=== PATIENT | female | born 1975 | race Caucasian/White ===

== ENCOUNTER → 2022-03-05 10:41 | Outpatient (BNVA) | payer OTHER, SELFPAY | PROVIDERS: PCP Internal Medicine; Visit Provider Nurse Practitioner Family | DX: M54.12 Radiculopathy, cervical region (principal); M96.1 Postlaminectomy syndrome, not elsewhere classified; M54.81 Occipital neuralgia; M62.838 Other muscle spasm; G43.909 Migraine, unspecified, not intractable, without status migrainosus; Z79.899 Other long term (current) drug therapy | CPT/HCPCS: 99202 ==

== ENCOUNTER → 2022-04-02 11:20 | Outpatient (BNVA) | payer OTHER, SELFPAY | PROVIDERS: PCP Internal Medicine; Visit Provider Nurse Practitioner Family | DX: M96.1 Postlaminectomy syndrome, not elsewhere classified (principal); M54.81 Occipital neuralgia; M62.838 Other muscle spasm; G43.909 Migraine, unspecified, not intractable, without status migrainosus; M54.12 Radiculopathy, cervical region | CPT/HCPCS: 99212 ==

== ENCOUNTER 2022-04-05 12:42 | Emergency (ER) | payer OTHER, SELFPAY ==
[2022-04-05 12:47] VITALS: BP 125/85; PULSE 91; RESP 18; O2SAT 98; BMI 33.0
[2022-04-05 13:17] LABS: COVID-19 Test Negative (Negative); IDNOW Serial# 55D5AD1C
[2022-04-05 15:40] VITALS: BP 123/72; PULSE 88; RESP 18; TEMP 36.7; O2SAT 97
[2022-04-05 15:44] LABS: MANUAL DIFF FLAG NO
[2022-04-05 15:45] LABS: Basophils Percent Auto 0.2 % (0-2); Eosinophils Absolute Auto 0.2 X10*3/uL (0.0-0.4); Eosinophils Percent Auto 1.9 % (0-4); Hemoglobin 14.6 g/dl (12.0-16.0); Imm Gran Abs Auto 0.04 X10*3/uL (0.00-0.03); Imm Gran Pct Auto 0.3 % (0.0-0.4); Lymphocytes Absolute Auto 2.1 X10*3/uL (1.2-4.9); Lymphocytes Percent Auto 18.3 % (20-40); Mean Corpuscular Hemoglobin 32.1 pg (27.0-33.0); Mean Corpuscular Volume 94.5 fL (80.0-98.0); Mean Platelet Volume 10.5 fL (9.4-12.3); Monocytes Percent Auto 8.6 % (2-11); Neutrophils Absolute Auto 8.1 x10*3/uL (2.0-8.3); Neutrophils Percent Auto 70.7 % (45-73); Platelet Count 255 X10*3/uL (160-400); Red Blood Count 4.55 X10*6/uL (4.20-5.50); Red Cell Distribution Width 14.2 % (11.0-16.0); White Blood Count 11.5 X10*3/uL (4.8-10.8)
[2022-04-05 16:04] LABS: Alanine Aminotransferase 22 U/L (0-31); Albumin Level 4.1 g/dL (3.5-5.0); Alkaline Phosphatase 95 U/L (39-117); Anion Gap 16 (12-20); Aspartate Amino Transferase 16 U/L (5-31); Bilirubin Direct 0.2 mg/dL (0.0-0.5); Bilirubin Total 0.4 mg/dL (0.0-1.0); Blood Urea Nitrogen 10 mg/dL (9-16); Calcium 9.3 mg/dL (8.4-10.2); Carbon Dioxide 20 mmol/L (22-29); Chloride 108 mmol/L (96-108); Creatinine Clr Calc Pharmacy 84.5; Estimated Glomerular Filt Rate > 60; Glucose Random 88 mg/dL (60-115); Lipase 13 U/L (8-78); Potassium 4.1 mmol/L (3.3-5.1); Sodium 140 mmol/L (135-145); Total Protein 7.3 g/dL (6.5-8.0)
== END 2022-04-05 19:48 | disposition left against medical advice (07) ==
PROVIDERS: Emergency Provider Emergency Medicine
DX: R11.2 Nausea with vomiting, unspecified (principal); R19.7 Diarrhea, unspecified; R51.9 Headache, unspecified; Z20.822 Contact with and (suspected) exposure to COVID-19
CPT/HCPCS: 36415; 80048; 80076; 83690; 85025; 87635; 99282; 99283

== ENCOUNTER → 2022-05-14 11:25 | Outpatient (BNVA) | payer OTHER, SELFPAY | PROVIDERS: Visit Provider Anesthesiology | DX: M96.1 Postlaminectomy syndrome, not elsewhere classified (principal); M54.81 Occipital neuralgia; M62.838 Other muscle spasm; G43.909 Migraine, unspecified, not intractable, without status migrainosus; M54.12 Radiculopathy, cervical region | CPT/HCPCS: 99212 ==

== ENCOUNTER 2022-10-30 13:07 | Emergency (ER) | payer MEDICAID, SELFPAY ==
--- NOTE | ~2022-10-30 | XR_ITS ---
EXAMINATION: XR KNEE, LEFT CLINICAL INFORMATION: Dislocated knee, popped back in . COMPARISON: 03/25/2018 TECHNIQUE: Four views of the left knee. FINDINGS: No fracture or dislocation. Appropriate alignment of all compartments. Small joint effusion. The soft tissues are unremarkable. XR/XR knee LT 4V IMPRESSION: No fracture or malalignment. Small joint effusion.
[2022-10-30 13:15] VITALS: PULSE 112; RESP 19; TEMP 36.6; O2SAT 97; BMI 33.0
--- NOTE | 2022-10-30 13:15 | ED.LOWEXIN ---
HPI - Extremity Injury (Lower) General Chief Complaint: Extremity Injury, Lower <ELI Willis - Last Filed: 10/30/22 13:19> Stated Complaint: L knee inj <ELI Willis - Last Filed: 10/30/22 13:19> Time Seen by Provider: 10/30/22 13:52 <ELI Willis - Last Filed: 10/30/22 13:19> Source: patient and RN notes reviewed <ELI Vaca - Last Filed: 10/30/22 17:33> Mode of arrival: ambulatory <ELI Vaca - Last Filed: 10/30/22 17:33> Limitations: no limitations <ELI Vaca - Last Filed: 10/30/22 17:33> History of Present Illness HPI Narrative: This is a 47-year-old female with a past medical history of bipolar disorder and IVDA, who presents emergency department today with complaints of left knee pain since yesterday. Patient reports that she was squatting when her left knee became dislocated . She states that when this occurred and she put her knee back into place. She states been able to ambulate but reports that her left knee keeps giving way. She reports that she has a history of right knee injury which had required multiple knee surgeries. Denies any numbness or tingling. No other complaints or concerns at this time. <ELI Vaca - Last Filed: 10/30/22 17:33> MD complaint: knee injury <ELI Vaca - Last Filed: 10/30/22 17:33> Onset (ago): day(s) <ELI Vaca - Last Filed: 10/30/22 17:33> Place: home <ELI Vaca - Last Filed: 10/30/22 17:33> Severity: moderate <ELI Vaca - Last Filed: 10/30/22 17:33> Relieving factors: immobilization and rest <ELI Vaca Last Filed: 10/30/22 17:33> Exacerbating factors: weight bearing, movement and palpation <ELI Vaca - Last Filed: 10/30/22 17:33> Associated symptoms: snap/pop sensation, swelling and able to partially bear weight <ELI Vaca - Last Filed: 10/30/22 17:33> Other symptoms: none <ELI Vaca - Last Filed: 10/30/22 17:33> Related Data Home Medications: Home Medications Medication Instructions Recorded Confirmed alprazolam 0.5 mg tablet 0.5 mg PO BID 03/05/22 04/02/22 gabapentin 600 mg tablet 600 mg PO TID 03/05/22 04/02/22 guanfacine 1 mg tablet 1 mg PO QAM 03/05/22 04/02/22 lidocaine 5 % topical patch 1 patch topical Q12H PRN moderate 03/05/22 04/02/22 pain methylphenidate HCl 10 mg tablet 10 mg PO BID 03/05/22 04/02/22 ondansetron 4 mg disintegrating 4 mg PO Q8H PRN 03/05/22 04/02/22 tablet propranolol 20 mg tablet 20 mg PO BID 03/05/22 04/02/22 dicyclomine 20 mg tablet 20 mg PO QID PRN cramps 06/06/22 gabapentin 300 mg capsule 300 mg PO TID 06/06/22 linaclotide 290 mcg capsule 290 mcg PO DAILY 06/06/22 (Linzess) melatonin 10 mg capsule 10 mg PO BEDTIME 06/06/22 omeprazole 40 mg capsule,delayed 40 mg PO DAILY 06/06/22 release quetiapine 300 mg tablet,extended 600 mg PO QPM 06/06/22 release 24 hr albuterol 90 mcg/actuation aerosol mcg inhalation Q4H PRN 06/09/22 inhaler Previous Rx's Medication Instructions Recorded methocarbamol 750 mg tablet 750 mg PO TID PRN pain (scale 03/05/22 score 7-10) #90 tabs cyclobenzaprine 10 mg tablet 10 mg PO TID PRN muscle spasm #14 10/30/22 tabs oxycodone 5 mg capsule 5 mg PO Q8H PRN severe pain (scale 10/30/22 score 7-10) #8 caps <ELI Willis - Last Filed: 10/30/22 13:19> Allergies/Adverse Reactions: Allergies Allergy/AdvReac Type Severity Reaction Status Date / Time bee pollen [BEE STINGS] Allergy Severe SWELLING Verified 05/14/22 11:57 amoxicillin [Amoxicillin] Allergy Mild HIVES Verified 05/14/22 11:57 erythromycin base Allergy Mild HIVES Verified 05/14/22 11:57 [From E.E.S. 200] ketorolac [From Toradol] Allergy Mild HIVES Verified 05/14/22 11:57 Penicillins Allergy Mild HIVES Verified 05/14/22 11:57 ibuprofen [IBUPROFEN] Allergy Unknown STOMACH Verified 05/14/22 11:57 UPSET-N/V acetaminophen [ACETAMINOPHEN] AdvReac Unknown STOMACH Verified 05/14/22 11:57 UPSET-N/V <ELI Willis - Last Filed: 10/30/22 13:19> Review of Systems Review of Systems: Yes all other systems are reviewed and are negative <ELI Vaca - Last Filed: 10/30/22 17:33> [facility] Past Medical History Surgical History: Surgical History (Updated 06/09/22 @ 08:04 by Jammie Harding CMA) H/O total hysterectomy History of arthroscopic knee surgery History of lumpectomy of left breast History of tubal ligation Hx of neck surgery <ELI Willis - Last Filed: 10/30/22 13:19> Family History Family History: Family History (Updated 06/09/22 @ 07:50 by Jammie Harding CMA) Mother Breast CA Thyroid cancer Ovarian cancer Uterine cancer CHF (congestive heart failure) Paternal Grandmother Lung cancer Paternal Uncle Colon cancer <ELI Willis - Last Filed: 10/30/22 13:19> Social History Social History: Social History (Updated 06/09/22 @ 07:53 by Jammie Harding CMA) Alcohol intake: current Alcohol intake frequency: a few times a month Patient Tobacco Use Status: Current everyday Tobacco user Substance Use Type: Marijuana Advance Directives: Yes Advance Directives Information Provided: Yes Advance Directives on File: No <ELI Willis - Last Filed: 10/30/22 13:19> Physical Exam Vital Signs: Vital Signs: Last Vital Signs Temp 98 F 10/30/22 13:15 Pulse 112 H 10/30/22 13:15 Resp 19 10/30/22 13:15 Pulse Ox 97 10/30/22 13:15 O2 Del Method 10/30/22 13:15 BMI result Body Mass Index 33.0 <ELI Willis - Last Filed: 10/30/22 13:19> Vital Signs: Last Vital Signs Temp 98 F 10/30/22 13:15 Pulse 112 H 10/30/22 13:15 Resp 19 10/30/22 13:15 Pulse Ox 97 10/30/22 13:15 O2 Del Method 10/30/22 13:15 BMI result Body Mass Index 33.0 <ELI Vaca - Last Filed: 10/30/22 17:33> Appearance: Alert. Oriented X3. No acute distress. HEENT: normal inspection CVS: Normal heart rate and rhythm. Pulses normal. Respiratory: No respiratory distress. Skin: Skin warm and dry. Normal skin color. Normal skin turgor. No rashes. Extremities: Left knee with moderate edema noted overlying the medial and lateral aspect without any ecchymosis. Diffuse tenderness to palpation overlying the entire left knee. Pain with active and passive flexion and extension, unable to full assess range of motion secondary to pain. Distal sensation and circulation intact. Neuro: Oriented X 3. No motor deficit. No sensory deficit. <ELI Vaca - Last Filed: 10/30/22 17:33> Course Course Course Narrative: RME--47yo F w/PMHx migraines c/o L knee pain, locking and popping out 2 days ago after squatting down. States pushed back into places. denies direct injury/trauma or fall L knee with mild swelling and diffuse ttp on exam Ambulating with limping gait XRs ordered <ELI Willis - Last Filed: 10/30/22 13:19> Medications Administered Discontinued Medications Generic Name Dose Route Start Last Admin Trade Name Freq PRN Reason Stop Dose Admin Oxycodone HCl 5 mg 10/30/22 15:14 10/30/22 15:21 Oxycodone Hcl Immed Release 5 Mg Tablet PO 10/30/22 15:15 5 mg ONCE ONE Administration <ELI Willis Last Filed: 10/30/22 13:19> Medications Administered Discontinued Medications Generic Name Dose Route Start Last Admin Trade Name Freq PRN Reason Stop Dose Admin Oxycodone HCl 5 mg 10/30/22 15:14 10/30/22 15:21 Oxycodone Hcl Immed Release 5 Mg Tablet PO 10/30/22 15:15 5 mg ONCE ONE Administration <ELI Vaca - Last Filed: 10/30/22 17:33> Medical Decision Making Medical Decision Making MDM Narrative: 47-year-old female, with a past medical history bipolar disorder and IVDA who presents to the emergency department for left knee pain x 1 day. Reporting that her left knee dislocated. Xray of left knee obtained today which revealed no fracture malalignment, small joint effusion. Placed left knee in knee immobilizer. Medicated in department with oxycodone 5mg PO today. Will discharge patient on a short course of pain medication and follow up with orthopedics. <ELI Vaca - Last Filed: 10/30/22 17:33> Differential Diagnosis Differential Diagnoses: The differential diagnosis associated with the presentation includes <ELI Vaca - Last Filed: 10/30/22 17:33> Left knee strain, sprain, contusion, femur fracture, patellar dislocation, ligamentous injury <ELI Vaca - Last Filed: 10/30/22 17:33> Independent Interpretation I performed an independent interpretation of an: Plain X-Ray <ELI Vaca - Last Filed: 10/30/22 17:33> Interpretation: No fracture noted. <ELI Vaca - Last Filed: 10/30/22 17:33> Radiology Impression Discussion of test interpretation with radiology: I have reviewed the radiologist's reading. <ELI Vaca - Last Filed: 10/30/22 17:33> Radiologist Impression: XR/XR knee LT 4V IMPRESSION: No fracture or malalignment. Small joint effusion. <ELI Vaca - Last Filed: 10/30/22 17:33> External Record Review External record reviewed: Prior outpatient labs <ELI Vaca - Last Filed: 10/30/22 17:33> Prescription Management I considered prescription management with: Pain Medication <ELI Vaca - Last Filed: 10/30/22 17:33> Critical Care Time Critical Care Time Critical Care Time: No <ELI Vaca - Last Filed: 10/30/22 17:33> Discharge Plan Discharge Clinical Impression: Left knee sprain, Effusion of knee joint, left <ELI Willis - Last Filed: 10/30/22 13:19> Patient Disposition: Home, Self-Care <ELI Willis - Last Filed: 10/30/22 13:19> Instructions: Knee Sprain (ED), Knee Immobilizer (ED) <ELI Willis - Last Filed: 10/30/22 13:19> Additional Instructions: Your x-rays showed no broken bones, but did reveal a small joint effusion. Take prescribed pain medication as directed as needed for pain. Rest, Ice, and elevate your left leg to reduce swelling. Keep left knee in knee immobilizer for support. Follow up with the referred orthopedics. If you develop new or worsening symptoms call 911 or come back to the ER for further evaluation. [facility] [id number], [place] [address] <ELI Willis - Last Filed: 10/30/22 13:19> Prescriptions: New oxycodone 5 mg capsule 5 mg PO Q8H PRN (Reason: severe pain (scale score 7-10)) Qty: 8 0RF Rx Instructions: Partial Fill upon patient request. cyclobenzaprine 10 mg tablet 10 mg PO TID PRN (Reason: muscle spasm) Qty: 14 0RF No Action ondansetron 4 mg tablet,disintegrating 4 mg PO Q8H PRN alprazolam 0.5 mg tablet 0.5 mg PO BID guanfacine 1 mg tablet 1 mg PO QAM methylphenidate HCl 10 mg tablet 10 mg PO BID propranolol 20 mg tablet 20 mg PO BID gabapentin 600 mg tablet 600 mg PO TID lidocaine 5 % adhesive patch,medicated 1 patch topical Q12H PRN (Reason: moderate pain) methocarbamol 750 mg tablet 750 mg PO TID PRN (Reason: pain (scale score 7-10)) Qty: 90 0RF melatonin 10 mg capsule 10 mg PO BEDTIME dicyclomine 20 mg tablet 20 mg PO QID PRN (Reason: cramps) omeprazole 40 mg capsule,delayed release(DR/EC) 40 mg PO DAILY Linzess 290 mcg capsule 290 mcg PO DAILY quetiapine 300 mg tablet extended release 24 hr 600 mg PO QPM gabapentin 300 mg capsule 300 mg PO TID albuterol 90 mcg/actuation aerosol inhalation Q4H PRN <ELI Willis - Last Filed: 10/30/22 13:19> Interventions: ED Discharge Assessment Last Done: 10/30/22 16:05 <ELI Willis - Last Filed: 10/30/22 13:19> Discharge Date/Time: 10/30/22 16:08 <ELI Willis - Last Filed: 10/30/22 13:19>
--- NOTE | 2022-10-30 14:00 | PC.NURSE ---
Patient reporting left knee pain x-rays obtained. Patient has + CSM in lower ext has not taken any OTC pain meds. Patient crying in triage awaiting x-ray reads.
[2022-10-30] MEDS: oxyCODONE HCl Immed Release 5 MG TABLET PO (15:21)
--- NOTE | 2022-10-30 15:24 | PC.NURSE ---
pt medicated per OCT for 05/26 left knee pain- knee immobilizer applied and crutch training provided
== END 2022-10-30 16:08 | disposition home or self-care (01) ==
PROVIDERS: Emergency Provider Emergency Medicine; PCP Registered Nurse
DX: S83.92XA Sprain of unspecified site of left knee, initial encounter (principal); X58.XXXA Exposure to other specified factors, initial encounter; M25.462 Effusion, left knee; R60.0 Localized edema; Y93.9 Activity, unspecified; Y92.9 Unspecified place or not applicable; Y99.9 Unspecified external cause status
CPT/HCPCS: 73564; 99283

== ENCOUNTER → 2022-12-03 09:13 | Outpatient (BNVA) | payer MEDICAID, SELFPAY | PROVIDERS: PCP Registered Nurse; Visit Provider Anesthesiology | DX: M96.1 Postlaminectomy syndrome, not elsewhere classified (principal); M54.81 Occipital neuralgia; M62.838 Other muscle spasm; M54.12 Radiculopathy, cervical region; G43.909 Migraine, unspecified, not intractable, without status migrainosus | CPT/HCPCS: 99212 ==

== ENCOUNTER 2022-12-04 06:40 | Emergency (ER) | payer MEDICAID, SELFPAY ==
--- NOTE | ~2022-12-04 | XR_ITS ---
EXAMINATION: XR CERVICAL SPINE CLINICAL INFORMATION: Acute on chronic neck pain COMPARISON: 06/26/2011 TECHNIQUE: 3 views of the cervical spine were obtained. FINDINGS: Anterior fusion hardware at C4-C5 with apparent bony fusion of the vertebral bodies at this level. There is a disc spacer at C5-C6. Additional anterior fusion hardware at C7-T1. Posterior hardware from C5 through T2. Appropriate alignment of the vertebral bodies. Intact hardware. There is mild prevertebral soft tissue prominence, though this could be positional. The atlantoaxial joint is well aligned. The dens is intact. XR/XR cervical spine 3V IMPRESSION: Extensive fusion hardware with appropriate alignment. Mild prevertebral soft tissue prominence is noted, though this could be positional.
[2022-12-04 06:46] VITALS: BP 151/104; PULSE 97; RESP 16; TEMP 36.4; O2SAT 98; BMI 32.3
[2022-12-04 06:50] VITALS: BP 151/104; PULSE 93; RESP 16; TEMP 36.4; O2SAT 98
--- NOTE | 2022-12-04 07:07 | ED_ITS ---
HPI - General Adult General Chief complaint: Back Pain/Injury Stated complaint: rods in back causing pain and migraine Time Seen by Provider: 12/04/22 06:58 Source: patient Mode of arrival: ambulatory Limitations: no limitations History of Present Illness HPI narrative: Presents with neck pain and migraine headache. Patient has a history of post- laminectomy syndrome. She has had 7 previous anterior-posterior surgeries on her neck. She is under pain management. She has chronic pain syndrome, chronic cervicalgia, cervical radiculopathy, occipital headaches. Patient is currently under consideration for a drug delivery system pain pump. She has been given approval by [facility]. She does have a history of intravenous drug abuse, bipolar disorder. Currently, pain is a 10/10. Her pain is in the similar location, similar type of pain which is sharp in achy in nature. The pain does radiate down her lower back. This has happened in the past. There is no new numbness, tingling or weakness. She reportedly contact her to paint stockman and she was sent to the emergency department for management. Patient is also complaining of a headache. Is an occipital headache. This is known due to her cervicalgia in her post-laminectomy syndrome. The headache is moderate. She describes as a migraine. There is no photo or phonophobia. There is nausea associated with it. No new focal neurologic deficits. Related Data Home Medications Medication Instructions Recorded Confirmed alprazolam 0.5 mg tablet 0.5 mg PO BID 03/05/22 12/03/22 guanfacine 1 mg tablet 1 mg PO QAM 03/05/22 12/03/22 lidocaine 5 % topical patch 1 patch topical Q12H PRN moderate 03/05/22 12/03/22 pain ondansetron 4 mg disintegrating 4 mg PO Q8H PRN 03/05/22 12/03/22 tablet propranolol 20 mg tablet 20 mg PO BID 03/05/22 12/03/22 dicyclomine 20 mg tablet 20 mg PO QID PRN cramps 06/06/22 12/03/22 gabapentin 300 mg capsule 300 mg PO TID 06/06/22 12/03/22 linaclotide 290 mcg capsule 290 mcg PO DAILY 06/06/22 12/03/22 (Linzess) omeprazole 40 mg capsule,delayed 40 mg PO DAILY 06/06/22 12/03/22 release albuterol 90 mcg/actuation aerosol mcg inhalation Q4H PRN 06/09/22 12/03/22 inhaler methylphenidate HCl 10 mg tablet 20 mg PO BID 12/03/22 12/03/22 quetiapine 300 mg tablet,extended 400 mg PO QPM 12/03/22 12/03/22 release 24 hr Previous Rx's Medication Instructions Recorded methocarbamol 750 mg tablet 750 mg PO TID PRN pain (scale 03/05/22 score 7-10) #90 tabs Allergies Allergy/AdvReac Type Severity Reaction Status Date / Time bee pollen [BEE STINGS] Allergy Severe SWELLING Verified 12/03/22 09:22 amoxicillin [Amoxicillin] Allergy Mild HIVES Verified 12/03/22 09:22 erythromycin base Allergy Mild HIVES Verified 12/03/22 09:22 [From E.E.S. 200] ketorolac [From Toradol] Allergy Mild HIVES Verified 12/03/22 09:22 Penicillins Allergy Mild HIVES Verified 12/03/22 09:22 ibuprofen [IBUPROFEN] Allergy Unknown STOMACH Verified 12/03/22 09:22 UPSET-N/V acetaminophen [ACETAMINOPHEN] AdvReac Unknown STOMACH Verified 12/03/22 09:22 UPSET-N/V PMFSH Past Medical History Surgical History H/O total hysterectomy History of arthroscopic knee surgery History of lumpectomy of left breast History of tubal ligation Hx of neck surgery Family History Family History Mother Breast CA Thyroid cancer Ovarian cancer Uterine cancer CHF (congestive heart failure) Paternal Grandmother Lung cancer Paternal Uncle Colon cancer Social History Social History Alcohol intake: current Alcohol intake frequency: holidays/special occasions only Patient Tobacco Use Status: Current everyday Tobacco user Smoked in Last 30 Days: Yes Use of substances other than those prescribed or required for medical reasons: Yes Substance Use Type: Marijuana Substance Use Frequency: Occasionally Advance Directives: Yes Advance Directives Information Provided: No Advance Directives on File: No Patient : No Physical Exam ED Vital Signs: Vital Signs - 24 hr 12/04/22 06:46 12/04/22 06:50 12/04/22 08:08 Temperature 97.5 F 97.5 F Pulse Rate 97 93 80 Respiratory Rate 16 16 16 Blood Pressure 151/104 H 151/104 H 103/69 Pulse Oximetry 98 98 93 Oxygen Delivery Method Room Air Room Air Room Air 12/04/22 10:25 12/04/22 11:55 Temperature Pulse Rate 78 82 Respiratory Rate 16 16 Blood Pressure 94/53 L 111/71 Pulse Oximetry 94 93 Oxygen Delivery Method Room Air Room Air BMI result Body Mass Index 32.3 GEN: Well developed, no acute distress, alert, oriented HEENT: Normocephalic, atraumatic, normal external ears, nose appears normal, no oropharyngeal edema or exudates Eyes: Normal to appearance Neck: Range of motion somewhat limited secondary to pain, no lymphadenopathy Respiratory: Talks in complete sentences, no respiratory distress, clear to auscultation bilaterally Cardiovascular: Regular rate and rhythm, no murmurs rubs or gallops Abdomen: Soft, nontender, nondistended, no guarding, no rebound Back: No CVA tenderness Extremities: No clubbing cyanosis or edema Neurologic: No focal neurologic deficits, cranial nerves 2-12 intact, strength is 5/5 bilaterally Skin: No rash Course Course Course Narrative: 47-year-old female with history of post-laminectomy syndrome from 7 previous cervical spine surgeries presents with acute on chronic pain. There is no new falls, injuries. She denies any new neurologic symptoms. This is similar pain syndrome to which she has had in the past but more severe. At this point there is no definite indication for emergent imaging. She has no fever chills. No active IV drug abuse. I doubt epidural abscess in any for an MRI. Will treat patient for pain both for her migraine and her C-spine. Patient will be discharged following adequate pain control. Reevaluation(s) Reevaluation #1: pain increasing again. Will give additional meds Time: 09:11 Reevaluation #2: Given oral dilaudid, discussed results, recommended follow up with PMD regarding chronic pain med Rx Time: 12:00 Medications Administered Discontinued Medications Generic Name Dose Route Start Last Admin Trade Name Freq PRN Reason Stop Dose Admin Famotidine 20 mg 12/04/22 07:11 12/04/22 07:31 Famotidine/Pf 20 Mg/2 Ml Vial IVPUSH 12/04/22 07:12 20 mg ONCE ONE Administration Gabapentin 300 mg 12/04/22 09:11 12/04/22 09:22 Gabapentin 300 Mg Capsule PO 12/04/22 09:12 300 mg ONCE ONE Administration Hydromorphone HCl 1 mg 12/04/22 07:11 12/04/22 07:30 Hydromorphone Hcl 1 Mg/Ml Syringe IVPUSH 12/04/22 07:12 1 mg ONCE ONE Administration Protocol Hydromorphone HCl 1 mg 12/04/22 09:11 12/04/22 09:22 Hydromorphone Hcl 1 Mg/Ml Syringe IVPUSH 12/04/22 09:12 1 mg ONCE ONE Administration Protocol Hydromorphone HCl 2 mg 12/04/22 11:38 12/04/22 11:50 Hydromorphone Hcl 2 Mg Tablet PO 12/04/22 11:39 2 mg ONCE ONE Administration Sodium Chloride 1,000 mls @ 999 mls/hr 12/04/22 07:15 12/04/22 10:50 Ns IV 12/04/22 08:15 Infused .Q1H1M DESTINEY Infusion Metoclopramide HCl 10 mg 12/04/22 07:11 12/04/22 07:30 Metoclopramide Hcl 10 Mg/2 Ml Vial IVPUSH 12/04/22 07:12 10 mg ONCE ONE Administration Medical Decision Making Medical Decision Making MDM Narrative: 47-year-old female history of 7 cervical spine surgeries, post laminectomy syndrome, chronic migraines and neck pain presenting with acute on chronic pain. There is no trauma. Doubt new fracture. Patient will be treated for her pain and re-evaluated. Differential Diagnosis Differential Diagnoses: The differential diagnosis associated with the presentation includes (Chronic pain, neck pain, cervicalgia, post laminecty syndrome) Migraine headache, post laminectomy syndrome Admission/Observation Consideration of admission/observation: Escalation of care including admission/observation considered Independent Interpretation I performed an independent interpretation of an: Plain X-Ray (hardware in place) Radiology Impression Discussion of test interpretation with radiology: I have reviewed the radiologist's reading. ( XR/XR cervical spine 3V IMPRESSION: Extensive fusion hardware with appropriate alignment. Mild prevertebral soft tissue prominence is noted, though this could be positional. Dictated By:Meir Solorzano MDSigned By:<Electronically signed by Meir Solorzano MD in OV>0) External Record Review External record reviewed: Office record (Pain management records) Tests considered The following testing was considered but not selected: CT/MRI/x-ray Prescription Management I considered prescription management with: Pain Medication Discharge Plan Discharge Clinical Impression: Cervical radiculitis, Occipital neuralgia, Postlaminectomy syndrome, cervical Patient Disposition: Home, Self-Care Instructions: Cervical Radiculopathy (ED) Prescriptions: No Action ondansetron 4 mg tablet,disintegrating 4 mg PO Q8H PRN alprazolam 0.5 mg tablet 0.5 mg PO BID guanfacine 1 mg tablet 1 mg PO QAM propranolol 20 mg tablet 20 mg PO BID lidocaine 5 % adhesive patch,medicated 1 patch topical Q12H PRN (Reason: moderate pain) methocarbamol 750 mg tablet 750 mg PO TID PRN (Reason: pain (scale score 7-10)) Qty: 90 0RF methylphenidate HCl 10 mg tablet 20 mg PO BID dicyclomine 20 mg tablet 20 mg PO QID PRN (Reason: cramps) omeprazole 40 mg capsule,delayed release(DR/EC) 40 mg PO DAILY Linzess 290 mcg capsule 290 mcg PO DAILY gabapentin 300 mg capsule 300 mg PO TID albuterol 90 mcg/actuation aerosol inhalation Q4H PRN quetiapine 300 mg tablet extended release 24 hr 400 mg PO QPM Referrals: [facility] [Primary Care Provider] - 3 days
[2022-12-04] MEDS: HYDROmorphone HCl 1 MG/ML SYRINGE IVPUSH ×2 (07:30→09:22)
[2022-12-04] MEDS: Metoclopramide HCl 10 MG/2 ML VIAL IVPUSH (07:30)
[2022-12-04] MEDS: Famotidine/PF 20 MG/2 ML VIAL IVPUSH (07:31)
[2022-12-04] MEDS: 0.9 % Sodium Chloride 1,000 ML 999 ML IV (07:35)
[2022-12-04 08:08] VITALS: BP 103/69; PULSE 80; RESP 16; O2SAT 93
[2022-12-04] MEDS: Gabapentin 300 MG CAPSULE PO (09:22)
[2022-12-04 10:25] VITALS: BP 94/53; PULSE 78; RESP 16; O2SAT 94
[2022-12-04] MEDS: HYDROmorphone HCl 2 MG TABLET PO (11:50)
[2022-12-04 11:55] VITALS: BP 111/71; PULSE 82; RESP 16; O2SAT 93
== END 2022-12-04 12:15 | disposition home or self-care (01) ==
PROVIDERS: Emergency Provider Emergency Medicine
DX: M54.12 Radiculopathy, cervical region (principal); M54.81 Occipital neuralgia; M96.1 Postlaminectomy syndrome, not elsewhere classified; M62.838 Other muscle spasm; G43.909 Migraine, unspecified, not intractable, without status migrainosus; Z79.899 Other long term (current) drug therapy
CPT/HCPCS: 72040; 96361; 96374; 96375; 96376; 99284; 99285; J1170; J2765

== ENCOUNTER 2023-01-05 12:54 | Outpatient (REF) | payer MEDICAID, SELFPAY ==
--- NOTE | ~2023-01-05 | US_ITS ---
EXAMINATION: MM DIAGNOSTIC DIGITAL BREAST TOMOSYNTHESIS, BILATERAL US DIAGNOSTIC ULTRASOUND BREAST, BILATERAL CLINICAL INFORMATION: Family history premenopausal breast cancer, mother. Patient notes personal history premenopausal left breast cancer, lumpectomy 1997. Patient notes palpable concern posterior upper outer left breast for over a year. Prior history fibrocystic changes mid upper outer left breast. COMPARISON: Outside mammography 08/04/2018 ([place]) and outside left breast ultrasound 08/20/2018 ([facility]). TECHNIQUE: Digital breast tomosynthesis is performed in both the craniocaudal and mediolateral oblique views along with computer-aided detection (CAD). Synthesized 2D images are generated from the tomosynthesis. Additional spot right CC and spot right MLO views are obtained. Symptom marker placed on left at site of clinical probable concern. Ultrasound bilateral breasts is performed using grayscale imaging and color Doppler without and with harmonics. Right breast is targeted to the inner lower quadrant. Imaging left breast is targeted to the upper outer quadrant. Patient is able to point to the area of left breast palpable concern at time of imaging. FINDINGS: The breasts are heterogeneously dense, which may obscure small masses (ACR BI-RADS breast composition Category c). There are no significant masses, abnormal calcifications, or other abnormalities. The axilla and skin contours are unremarkable. No skin thickening or coarsening of the stromal markings. Symptom marker upper outer left breast corresponds to benign intramammary nodes similar to outside exam 2018. There is a chronic nodule posterior medial right breast borderline increased since 2018. Ultrasound left breast demonstrates incidental intramammary nodes posterior upper outer breast corresponding to the palpable concern. This shows normal poly architecture and color flow in the nodes are similar to prior outside exam 2018. There is no solid mass or architectural abnormality. There is an incidental small simple cyst left breast 3:00 position 6 cm from nipple measuring approximately 6 x 4 mm. Ultrasound right breast straight 2 small simple cysts posterior medial breast, both under 1 cm. There is no solid mass or architectural abnormality. No associated color flow. Results are discussed with the patient at time of visit. US/US breast RT limited IMPRESSION: Left: -No mammographic evidence of malignancy. -Palpable concern corresponds to an incidental old intramammary nodes. -Small cyst mid outer left breast under 1 cm. Right: -No mammographic evidence of malignancy. -Small cysts posterior lower inner quadrant under 1 cm. ASSESSMENT: BI-RADS 2: Benign RECOMMENDATION: Routine annual mammography screening. This patient's information was entered into a reminder system with a target due date for their next mammogram.
--- NOTE | ~2023-01-05 | US_ITS ---
EXAMINATION: MM DIAGNOSTIC DIGITAL BREAST TOMOSYNTHESIS, BILATERAL US DIAGNOSTIC ULTRASOUND BREAST, BILATERAL CLINICAL INFORMATION: Family history premenopausal breast cancer, mother. Patient notes personal history premenopausal left breast cancer, lumpectomy 1997. Patient notes palpable concern posterior upper outer left breast for over a year. Prior history fibrocystic changes mid upper outer left breast. COMPARISON: Outside mammography 08/04/2018 ([place]) and outside left breast ultrasound 08/20/2018 ([facility]). TECHNIQUE: Digital breast tomosynthesis is performed in both the craniocaudal and mediolateral oblique views along with computer-aided detection (CAD). Synthesized 2D images are generated from the tomosynthesis. Additional spot right CC and spot right MLO views are obtained. Symptom marker placed on left at site of clinical probable concern. Ultrasound bilateral breasts is performed using grayscale imaging and color Doppler without and with harmonics. Right breast is targeted to the inner lower quadrant. Imaging left breast is targeted to the upper outer quadrant. Patient is able to point to the area of left breast palpable concern at time of imaging. FINDINGS: The breasts are heterogeneously dense, which may obscure small masses (ACR BI-RADS breast composition Category c). There are no significant masses, abnormal calcifications, or other abnormalities. The axilla and skin contours are unremarkable. No skin thickening or coarsening of the stromal markings. Symptom marker upper outer left breast corresponds to benign intramammary nodes similar to outside exam 2018. There is a chronic nodule posterior medial right breast borderline increased since 2018. Ultrasound left breast demonstrates incidental intramammary nodes posterior upper outer breast corresponding to the palpable concern. This shows normal poly architecture and color flow in the nodes are similar to prior outside exam 2018. There is no solid mass or architectural abnormality. There is an incidental small simple cyst left breast 3:00 position 6 cm from nipple measuring approximately 6 x 4 mm. Ultrasound right breast straight 2 small simple cysts posterior medial breast, both under 1 cm. There is no solid mass or architectural abnormality. No associated color flow. Results are discussed with the patient at time of visit. US/US breast LT limited IMPRESSION: Left: -No mammographic evidence of malignancy. -Palpable concern corresponds to an incidental old intramammary nodes. -Small cyst mid outer left breast under 1 cm. Right: -No mammographic evidence of malignancy. -Small cysts posterior lower inner quadrant under 1 cm. ASSESSMENT: BI-RADS 2: Benign RECOMMENDATION: Routine annual mammography screening. This patient's information was entered into a reminder system with a target due date for their next mammogram.
== END 2023-01-05 12:55 | disposition home or self-care (01) ==
LOC: HO.MAMMO 12:54
PROVIDERS: PCP Registered Nurse; Visit Provider Registered Nurse
DX: N63.21 Unspecified lump in the left breast, upper outer quadrant (principal); N60.01 Solitary cyst of right breast
CPT/HCPCS: 76642; 77062; 77066

== ENCOUNTER 2023-02-10 06:51 | Outpatient (REF) | payer MEDICAID, SELFPAY ==
--- NOTE | ~2023-02-10 | FL_ITS ---
EXAMINATION: XR FLUOROSCOPY WITH IMAGES CLINICAL INFORMATION: Post laminectomy syndrome, not elsewhere classified. COMPARISON: None available. TECHNIQUE: Fluoroscopy Supervised By: Dr. Mariscal. Fluoroscopy Time: 0.1 minutes. Cumulative Dose: 8.01 mGy. DAP: 2.18 Gycm2. Images: 2. FINDINGS: Images demonstrate needle projecting over the spinal canal at the L2 level FL/FL guidance in treatment room IMPRESSION: Fluoroscopy guidance for pain management procedure.
== END 2023-02-10 06:52 | disposition home or self-care (01) ==
LOC: CF 06:51
PROVIDERS: PCP Registered Nurse; Visit Provider Anesthesiology
DX: M96.1 Postlaminectomy syndrome, not elsewhere classified (principal); M54.81 Occipital neuralgia; M62.838 Other muscle spasm; G43.909 Migraine, unspecified, not intractable, without status migrainosus; M54.12 Radiculopathy, cervical region
CPT/HCPCS: 62323; J3010

== ENCOUNTER → 2023-02-16 09:05 | Outpatient (BNVA) | payer MEDICAID, SELFPAY | PROVIDERS: PCP Registered Nurse; Visit Provider Anesthesiology ==

== ENCOUNTER 2023-02-27 08:17 | Outpatient (REF) | payer MEDICAID, SELFPAY ==
[2023-02-27 12:35] LABS: Alanine Aminotransferase 16 U/L (0-31); Albumin Level 4.1 g/dL (3.5-5.0); Alkaline Phosphatase 91 U/L (39-117); Aspartate Amino Transferase 15 U/L (5-31); Bilirubin Direct 0.2 mg/dL (0.0-0.5); Bilirubin Total 0.5 mg/dL (0.0-1.0); Total Protein 7.5 g/dL (6.5-8.0)
== END 2023-02-27 08:18 | disposition home or self-care (01) ==
LOC: HO.HHCL 08:17
PROVIDERS: Visit Provider Registered Nurse
DX: K76.89 Other specified diseases of liver (principal)
CPT/HCPCS: 36415; 80076

== ENCOUNTER 2023-04-27 12:48 | Outpatient (AMB) | payer MEDICAID, SELFPAY ==
--- NOTE | 2023-04-27 12:48 | A.OFFVIS_ITS ---
Intake Intake Visit Reasons: F/u Re: Behavioral Assessment Endorsement Allergies bee pollen [BEE STINGS] Allergy (Severe, Verified 04/27/23 12:48) SWELLING amoxicillin [Amoxicillin] Allergy (Mild, Verified 04/27/23 12:48) HIVES erythromycin base [From E.E.S. 200] Allergy (Mild, Verified 04/27/23 12:48) HIVES ketorolac [From Toradol] Allergy (Mild, Verified 04/27/23 12:48) HIVES Penicillins Allergy (Mild, Verified 04/27/23 12:48) HIVES ibuprofen [IBUPROFEN] Allergy (Unknown, Verified 04/27/23 12:48) STOMACH UPSET-N/V acetaminophen [ACETAMINOPHEN] Adverse Reaction (Unknown, Verified 04/27/23 12:48) STOMACH UPSET-N/V Medication List - Last Reconciled 04/27/23 by Lissette Perea, RN albuterol 90 mcg/actuation mcg inhalation Q4H PRN alprazolam 0.5 mg PO BID dicyclomine 20 mg PO QID PRN gabapentin 300 mg PO TID guanfacine 1 mg PO QAM lidocaine 5% 1 patch topical Q12H PRN linaclotide (Linzess) 290 mcg PO DAILY methocarbamol 750 mg PO TID PRN methylphenidate HCl 20 mg PO BID omeprazole 40 mg PO DAILY ondansetron 4 mg PO Q8H PRN propranolol 20 mg PO BID quetiapine ER 400 mg PO QPM HPI HPI Comments History of Present Illness Details Palma is on the phone with me today to discuss her psychological diagnosis. She reports that she is suffering from bipolar disorder since early teenager years. She reports that she has this condition inherited from her mother. She was since 2018 under care of 1 psychologist and psychiatrist. From psychological standpoint of view the psychologist send us a letter stating that patient is stable. Patient herself states that she feels stable. She reports that she was depressed previously because of the of her son 5 years ago. She reports that currently she is on Seroquel 800 mg q.h.s. and oxcarbazepine 150 mg b.i.d.. She is also having regular sessions of therapy at least twice a month. Sometimes she has it less frequent. She went forthe trial of intrathecal drug delivery system cervical position which was performed on 01/27/2023. She reports 100% pain relief immediately after the trial. She reports today 10 days after the trial still absence of pain in the cervical spine absence of stiffness improved mobility of the c ervical spine. We decided that I will go for implantation of the cervical I DDD. For that I need to admit patient for at least 48 possibly 72 hours. The adjustments needs to be made with admission with administration Otherwise I will see the patient when things will be approved for her surgery and her admission. 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 She was in this office under works with chronic pain syndrome, chronic cervicalgia, cervical radiculopathy, occipital headache.? She was offered intrathecal drug delivery system pain pump trial to help her pain.? She was given psychological approval by the [facility] despite the previous history as above. [facility] Surgical History H/O total hysterectomy History of arthroscopic knee surgery History of lumpectomy of left breast History of tubal ligation Hx of neck surgery Family History Mother Breast CA Thyroid cancer Ovarian cancer Uterine cancer CHF (congestive heart failure) Paternal Grandmother Lung cancer Paternal Uncle Colon cancer Social History Alcohol intake: current Alcohol intake frequency: holidays/special occasions only Patient Tobacco Use Status: Current everyday Tobacco user Substance Use Type: Marijuana Review of Systems Const All systems reviewed & are unremarkable except as noted in HPI and below Assessment & Plan Assessment & Plan (1) Postlaminectomy syndrome, cervical: Code(s): M96.1 - Postlaminectomy syndrome, not elsewhere classified (2) Occipital neuralgia: Code(s): M54.81 - Occipital neuralgia (3) Muscle spasms of neck: Code(s): M62.838 - Other muscle spasm (4) Migraines: Code(s): G43.909 - Migraine, unspecified, not intractable, without status migrainosus (5) Cervical radiculitis: Code(s): M54.12 - Radiculopathy, cervical region (6) Bipolar disorder in full remission: Code(s): F31.70 - Bipolar disorder, currently in remission, most recent episode unspecified Plan Excellent results of intrathecal drug delivery system trial pain pump 10 days of complete pain relief and complete relief of stiffness of the neck. She received 30 micro g of fentanyl intrathecally for the trial. We would need to schedule her for the implantation of the pain pump. We would need to admit her for 48-72 hours to the hospital to monitor her respiratory rate and pulse oximetry. She is not on any opioids at this time. Her therapist consider her stable with bipolar disorder on Seroquel and oxcarbazepine. She is scheduled for the procedure on 05/13/2023.. Patient Instructions: I here by testify that I spent 15 minutes in conversation with this patient as well as planning her care and organizing her note. Telehealth Telehealth Location of provider rendering services: practice address Location of patient: address on file Patient Identification confirmed using: Name, : Yes Telehealth method: voice only Patient verbally consented to treatment: Yes Patient verbally consented to billing insurance company: Yes Patient informed of any privacy concerns related to visit: Yes Coding Level of Care Code Tele Est Pt Level 3 (24681) Diagnoses Postlaminectomy syndrome, cervical M96.1 Occipital neuralgia M54.81 Muscle spasms of neck M62.838 Migraines G43.909 Cervical radiculitis M54.12 Bipolar disorder in full remission F31.70
== END 2023-04-27 13:21 | disposition home or self-care (01) ==
LOC: HO.PMC 12:48
PROVIDERS: PCP Registered Nurse; Visit Provider Anesthesiology
DX: M96.1 Postlaminectomy syndrome, not elsewhere classified (principal); M54.81 Occipital neuralgia; M62.838 Other muscle spasm; G43.909 Migraine, unspecified, not intractable, without status migrainosus; M54.12 Radiculopathy, cervical region; F31.70 Bipolar disorder, currently in remission, most recent episode unspecified
CPT/HCPCS: 99213

== ENCOUNTER → 2023-04-27 12:48 | Outpatient (BNVA) | payer MEDICAID, SELFPAY | PROVIDERS: PCP Registered Nurse; Visit Provider Anesthesiology ==

== ENCOUNTER 2023-05-13 10:47 | Day surgery (SDC) | payer MEDICAID, SELFPAY ==
[2023-05-11 13:59] VITALS: BMI 32.1
--- NOTE | 2023-05-12 09:20 | P.CONAN_ITS ---
Documented by User: Cindy Jacobson NP 05/12/23 09:21 HPI - Anesthesia Eval Consult details Narrative: 47yo F for Intrathecal Drug Delivery Implant s/p tubal PMFSH Active Problems Active Problems: All Active Problems (Updated 05/11/23 @ 13:53 by Bre Virk RN) Bipolar disorder in full remission (Acute) Occipital neuralgia (Acute) Cervical radiculitis (Acute) Migraines (Acute) Muscle spasms of neck (Acute) Postlaminectomy syndrome, cervical (Acute) Past Medical History Medical History (Updated 06/18/23 @ 08:40 by Britton Mariscal MD) CVA (cerebral vascular accident) Post-laminectomy syndrome Migraines Bipolar disorder Family History Family History Mother Breast CA Thyroid cancer Ovarian cancer Uterine cancer CHF (congestive heart failure) Paternal Grandmother Lung cancer Paternal Uncle Colon cancer Surgical History Surgical History (Updated 05/11/23 @ 13:58 by Bre Virk RN) H/O total hysterectomy History of arthroscopic knee surgery History of tubal ligation Hx of neck surgery History of lumpectomy of left breast Social History Alcohol intake: current Alcohol intake frequency: holidays/special occasions only Patient Tobacco Use Status: Current everyday Tobacco user Cigarettes Per Day: 10 Substance Use Type: Marijuana Meds Allergies Allergy/AdvReac Type Severity Reaction Status Date / Time amoxicillin [Amoxicillin] Allergy Severe Anaphylaxis Verified 06/22/23 08:39 bee pollen [BEE STINGS] Allergy Severe SWELLING Verified 06/22/23 08:39 erythromycin base Allergy Mild HIVES Verified 06/22/23 08:39 [From E.E.S. 200] ketorolac [From Toradol] Allergy Mild HIVES Verified 06/22/23 08:39 Penicillins Allergy Mild HIVES Verified 06/22/23 08:39 ibuprofen [IBUPROFEN] Allergy Unknown STOMACH Verified 06/22/23 08:39 UPSET-N/V acetaminophen [ACETAMINOPHEN] AdvReac Unknown STOMACH Verified 06/22/23 08:39 UPSET-N/V Home Medications Medication Instructions Recorded Confirmed Last Taken Type guanfacine 1 mg tablet 1 mg PO QAM 03/05/22 05/11/23 Unknown History lidocaine 5 % topical patch 1 patch topical Q12H PRN moderate 03/05/22 05/11/23 Unknown History pain ondansetron 4 mg disintegrating 4 mg PO Q8H PRN Nausea 03/05/22 05/11/23 Unknown History tablet propranolol 20 mg tablet 20 mg PO BID 03/05/22 05/11/23 Unknown History dicyclomine 20 mg tablet 20 mg PO QID PRN cramps 06/06/22 05/11/23 Unknown History linaclotide 290 mcg capsule 290 mcg PO DAILY 06/06/22 05/11/23 Unknown History (Linzess) omeprazole 40 mg capsule,delayed 40 mg PO DAILY 06/06/22 05/11/23 Unknown History release albuterol 90 mcg/actuation aerosol 90 mcg inhalation Q4H PRN 06/09/22 05/11/23 Unknown History inhaler Shortness Of Breath methylphenidate HCl 10 mg tablet 20 mg PO BID 12/03/22 05/11/23 Unknown History quetiapine 300 mg tablet,extended 400 mg PO QPM 12/03/22 05/11/23 Unknown His tory release 24 hr alprazolam 1 mg tablet 1 mg PO TID PRN severe pain 06/03/23 Unknown History gabapentin 400 mg capsule 400 mg PO TID 06/03/23 Unknown History Exam Exam Date and Time: May 12, 2023919 Height,Weight and Vital Signs: Height 5 ft 1 in Weight 77.111 kg Assessment and Plan Assessment Anesthesia Assessment: Chart Reviewed Documented by User: Madi Malave MD 07/09/23 18:59 HPI - Anesthesia Eval Consult details Narrative: 47yo F for Intrathecal Drug Delivery Implant stroke x3 , last 2019 , speech impairement . s/p tubal PMFSH Past Medical History Medical History (Updated 06/18/23 @ 08:40 by Britton Mariscal MD) CVA (cerebral vascular accident) Post-laminectomy syndrome Migraines Bipolar disorder Family History Family History Mother Breast CA Thyroid cancer Ovarian cancer Uterine cancer CHF (congestive heart failure) Paternal Grandmother Lung cancer Paternal Uncle Colon cancer Family history of problems with anesthesia: No Surgical History Surgical History (Updated 05/11/23 @ 13:58 by Bre Virk RN) H/O total hysterectomy History of arthroscopic knee surgery History of tubal ligation Hx of neck surgery History of lumpectomy of left breast History of Problems with Anesthesia: No Social History Alcohol intake: current Alcohol intake frequency: holidays/special occasions only Patient Tobacco Use Status: Current everyday Tobacco user Cigarettes Per Day: 10 Substance Use Type: Marijuana Meds Allergies Allergy/AdvReac Type Severity Reaction Status Date / Time amoxicillin [Amoxicillin] Allergy Severe Anaphylaxis Verified 06/22/23 08:39 bee pollen [BEE STINGS] Allergy Severe SWELLING Verified 06/22/23 08:39 erythromycin base Allergy Mild HIVES Verified 06/22/23 08:39 [From E.E.S. 200] ketorolac [From Toradol] Allergy Mild HIVES Verified 06/22/23 08:39 Penicillins Allergy Mild HIVES Verified 06/22/23 08:39 ibuprofen [IBUPROFEN] Allergy Unknown STOMACH Verified 06/22/23 08:39 UPSET-N/V acetaminophen [ACETAMINOPHEN] AdvReac Unknown STOMACH Verified 06/22/23 08:39 UPSET-N/V Home Medications Medication Instructions Recorded Confirmed Last Taken Type guanfacine 1 mg tablet 1 mg PO QAM 03/05/22 05/11/23 Unknown History lidocaine 5 % topical patch 1 patch topical Q12H PRN moderate 03/05/22 05/11/23 Unknown History pain ondansetron 4 mg disintegrating 4 mg PO Q8H PRN Nausea 03/05/22 05/11/23 Unknown History tablet propranolol 20 mg tablet 20 mg PO BID 03/05/22 05/11/23 Unknown History dicyclomine 20 mg tablet 20 mg PO QID PRN cramps 06/06/22 05/11/23 Unknown History linaclotide 290 mcg capsule 290 mcg PO DAILY 06/06/22 05/11/23 Unknown History (Linzess) omeprazole 40 mg capsule,delayed 40 mg PO DAILY 06/06/22 05/11/23 Unknown History release albuterol 90 mcg/actuation aerosol 90 mcg inhalation Q4H PRN 06/09/22 05/11/23 Unknown History inhaler Shortness Of Breath methylphenidate HCl 10 mg tablet 20 mg PO BID 12/03/22 05/11/23 Unknown History quetiapine 300 mg tablet,extended 400 mg PO QPM 12/03/22 05/11/23 Unknown History release 24 hr alprazolam 1 mg tablet 1 mg PO TID PRN severe pain 06/03/23 Unknown History gabapentin 400 mg capsule 400 mg PO TID 06/03/23 Unknown History Exam Airway Mallampati Class: III Loose/Missing/Broken Teeth: Yes Assessment and Plan Assessment Anesthesia Assessment: Anesthesia Plan Discussed Final Anesthetic Review Family History of Problems with Anesthesia: No History of Problems with Anesthesia: No NPO: Yes ASA Class: III Final Preanesthetic Review: Meds/Allgs Chart Reviewed, Consent Obtained/Reviewed and Anes Risks/Benef Reviewed Patient Risk: Intermediate Procedure Risk: Intermediate Anesthetic Plan Anesthetic Plan: GA and Agree w/ Assess. and Plan Disposition: Standard PACU
[2023-05-13] VITALS (7 sets, daily range): BP systolic 106–120; BP diastolic 70–78; PULSE 75–84; RESP 15–16; TEMP 36–36.8; O2SAT 94–98; BMI 32.1
--- NOTE | ~2023-05-13 | FL_ITS ---
EXAMINATION: XR FLUOROSCOPY WITH IMAGES CLINICAL INFORMATION: Intrathecal drug implant. COMPARISON: None available. TECHNIQUE: Fluoroscopy Supervised By: Dr. Britton Mariscal. Fluoroscopy Time: 0.4 minutes. Cumulative Dose: 11.8 mGy. DAP: 0.150 Gycm2. Images: 3. FINDINGS: First 2 images demonstrate orthopedic hardware in the lower cervical and upper thoracic spine. There is question of catheter or lead projecting over the spinal canal. Final image demonstrates surgical marker projecting over the left iliac crest. FL/FL guidance in OR IMPRESSION: Fluoroscopy guidance for intrathecal drug implant
[2023-05-13] MEDS: Lactated Ringers 1,000 ML 100 ML IVCONT (06:46)
--- NOTE | 2023-05-13 07:25 | P.HPSUR_ITS ---
Pre-Procedural Eval Section A Date of Service: 05/13/23 The patient is an INPATIENT: No Changes since office visit: Yes Patient answered all questions The History & Physical has been completed within 30 days and I have reviewed it.: No Section B Chief Complaint: Postlaminectomy syndrome, Details of Present Illness: as above Relevant Family History (Specify if Yes): No Present Medications: see Short Stay Collaborative assessment Medical History: No relevant PMH History of Previous Operations: No relevant previous surgery Allergies: Allergies Allergy/AdvReac Type Severity Reaction Status Date / Time amoxicillin [Amoxicillin] Allergy Severe Anaphylaxis Verified 05/13/23 06:17 bee pollen [BEE STINGS] Allergy Severe SWELLING Verified 04/27/23 12:48 erythromycin base Allergy Mild HIVES Verified 04/27/23 12:48 [From E.E.S. 200] ketorolac [From Toradol] Allergy Mild HIVES Verified 04/27/23 12:48 Penicillins Allergy Mild HIVES Verified 04/27/23 12:48 ibuprofen [IBUPROFEN] Allergy Unknown STOMACH Verified 04/27/23 12:48 UPSET-N/V acetaminophen [ACETAMINOPHEN] AdvReac Unknown STOMACH Verified 04/27/23 12:48 UPSET-N/V Review of Systems Sugical H&P ROS: Negative: Constitution, Cardiovascular, Respiratory, Neurological, Psychiatric, Hem-Onc, Allergic/Immunologic, Gastrointestinal, Genitourinary, Musculoskeletal, Integumentary, Endocrine and Eyes/Ears/ Nose/Throat Exam Surgical H&P Exam: Normal: HEENT, Normal: Heart, Normal: Lungs, Normal: Extremities, Normal: Abdomen, Normal: Skin and Normal: Neurological Plan Diagnosis/Plan: Unchanged I have reviewed the history and physical and performed a pertinent physical examination on my patient. No changes have occurred unless specified. Time Spent With Patient Time: Total time managing care of this patient today ___15_ minutes.
[2023-05-13 10:19] LABS: MRSA Nasal PCR NEGATIVE (Negative); SA Nasal PCR NEGATIVE (Negative)
--- NOTE | 2023-05-13 10:54 | PM.OP ---
Brief Operative Note Date of Service: 05/13/23 Pre-op diagnosis: Postlaminectomy syndrome cervical spine Post-op diagnosis: same Procedure: implantation of intrathecal drug delivery system pain pump with the tip of the catheter positioned C7-T1 Surgeon: Britton Mariscal MD Anesthesia: GETA Was an Otolaryngology Nurse used for this Procedure?: No Estimated blood loss (mL): 50 Pathology: none sent Condition: stable Disposition: PACU
--- NOTE | 2023-05-13 10:55 | W.PM.OPN ---
Operative Note Operative Note Date of Service: 05/13/23 Narrative: Intrathecal drug delivery system pain pump After obtaining informed consent and explaining to the patient risks, benefits and alternatives to treat her pain, the patient was brought up to the operating room where she was positioned supine on the stretcher.? [place] [employer] monitors were applied and general anesthesia was induced with endotracheal intubation.? After that the patient was transferred to the operating table prone.? All pressure points protected.? The patient received antibiotic clindamycin 900 mg intravenously 20 minutes before onset of the procedure. Time-out was performed delineating correct site and side of the procedure, name and date of of the patient, risk of fire, need for antibiotic prophylaxis risk of DVT and need for DVT prophylaxis. ? After that the patient entire back was prepped with chloroprep and draped with fool body drape including ioban film. Sterilely drape C-arm was brought over the OR field and square pictures of the L2, L3 and L4 vertebrae were demonstrated on the screen. the entrance point? for the catheter was chosen as the L2-L3 interspace. In the strict midline fashion 6.5 cm vertical skin incision was made with #10 scalpel. The incision was widened with the Gelpy retractor and deepened with electrocautery. Thorough hemostasis was obtained using electrocautery and 3-0 polisorb sutures. the prevertebral fascia was freed from overlaying tissues. After that 150 mm introducer spinal 16 g needle was incerted under x-ray guidance in the projection of the LEFT L3 pedicle. The needle advanced under the x-ray guidance with intemitteny A-P? and lateral pictures toward the spinal canal. When on the lateral view the needle entered the spinal canal the stylet was removed and the clear flow of the CSF was obtain through the needle hub. Intrathecal Ascenda catheter was inserted through the needle and advanced under the x-ray guidance toward the C7-T1 vertebral body projection. The stylet was removed from the catheter and the flow of CSF fluid straw colored and clear was observed coming from the catheter.? Purse-string suture was applied surrounding? the a needle and it was tied.? After that the needle was withdrawn with care taken to keep the catheter in place.? Anchoring device was dislodged on the catheter and advanced until it met prevertebral fascia.? It was engaged on the body of the catheter.? Two anchoring Tycron sutures were used to suture left wing of the anchor to prevertebral fascia and 1 anchoring suture was used to stitch in the right wing of anchoring device to prevertebral fascia. After that the thorough irrigation of the wound was performed and wound was packed with vancomycin soaked 4 x 4. Attention then was concentrated on the patient's right buttock.? Sterilely draped C-arm was brought over the operative field again and position of the patient's iliac crest on the left was demonstrated on the screen.? 2 cm below the projection of the iliac crest to the skin of the local anesthetic bupivacaine was injected in the linear horizontal fashion.? After that 9.5 cm incision was performed in patient's right buttock alongside the injected line.? Thorough hemostasis was obtained using cautery device.? After that the wound was widened and made 3.5 cm deep .? The wound was extended medially and laterally as well as caudally and cranially to form the space to accommodate the body of the pump.? Thorough hemostasis was performed.? The wound was irrigated with vancomycin containing normal saline and then tunneling device was used to connect both wounds and dislodged the intrathecal catheter into the side wound.? The catheter was trimmed appropriately after that and sutureless connection device was mounted on the catheter.? After that sutureless connection device was connected to the pump.? The pump was filled with normal saline. Aspiration of the side port of the pump revealed clear flow of CSF.? Three anchoring 0-0 Tycron sutures were applied in most SUPERIOR MEDIAL AND SUPERIOR LATERAL CORNERS OF THE WOUND as well as most inferior medial corner of the wound.? After that the sutures were connected to the bracket is on the body of the pump, intrathecal catheter was gathered behind the body of the pump and pump was dislodged into the wound.? After that the anchoring sutures were tied.? Thorough irrigation was performed again in both wounds.? Thorough hemostasis was verified.? 0 polisorb sutures were used to close both wounds, 2-0 suture of the same nature were used to approximate the skin.? [place] were applied to the skin line and Bacitracin ointment was applied to the staple lines.? Sterile dressing with sterile 4x4s was performed, abdominal binder was applied.? Upon completion of the procedure patient was awaken extubated and taken outside of the operating room to recovery room where SHE recovered uneventfully.? SHE went home without immediate complications. The pump was programmed to deliver normal saline at minimal rate less than 1 cc a day.
[2023-05-13] MEDS: oxyCODONE HCl Immed Release 5 MG TABLET PO (11:24)
== END 2023-05-13 12:43 | disposition home or self-care (01) ==
PROVIDERS: Registered Nurse Emergency; PCP Registered Nurse; Visit Provider Anesthesiology
PROC: (CPT 62362; principal; 2023-05-13 07:30)
DX: M96.1 Postlaminectomy syndrome, not elsewhere classified (principal)
CPT/HCPCS: 62362; 87640; 87641; C1755; C1772; J1100; J2250; J2405; J3010; J3370

== ENCOUNTER → 2023-05-13 10:47 | Outpatient (BNV) | payer MEDICAID, SELFPAY | PROVIDERS: PCP Registered Nurse; Visit Provider Anesthesiology | DX: M96.1 Postlaminectomy syndrome, not elsewhere classified (principal) | CPT/HCPCS: 62362 ==

== ENCOUNTER 2023-05-20 10:03 | Outpatient (AMB) | payer MEDICAID, SELFPAY ==
[2023-05-20 10:39] VITALS: BP 120/90; PULSE 92; RESP 16; O2SAT 97; BMI 33.4
--- NOTE | 2023-05-20 10:39 | MHC.OFFVIS ---
Intake Vital Signs 05/20/23 10:39 Height 5 ft 1 in Weight 177 lb BMI 33.4 BP 120/90 H Blood Pressure Location Lt brachial Position Sitting Respiration 16 Pulse 92 Pulse Source Pulse Oximeter Pulse Oximetry (%) 97 Oxygen Delivery Method Room Air Intake Visit Reasons: S/p ITDD Pain Pump, C7 05/13/23/ Confirmed. Intake Note: patient comes in for s/p ITDD pain pump implant C7 05/13/23. Site was cleared no redness/drainage/swelling at site. Site cleaned with alcohol prep pad. Allergies amoxicillin [Amoxicillin] Allergy (Severe, Verified 05/20/23 10:39) Anaphylaxis bee pollen [BEE STINGS] Allergy (Severe, Verified 05/20/23 10:39) SWELLING erythromycin base [From E.E.S. 200] Allergy (Mild, Verified 05/20/23 10:39) HIVES ketorolac [From Toradol] Allergy (Mild, Verified 05/20/23 10:39) HIVES Penicillins Allergy (Mild, Verified 05/20/23 10:39) HIVES ibuprofen [IBUPROFEN] Allergy (Unknown, Verified 05/20/23 10:39) STOMACH UPSET-N/V acetaminophen [ACETAMINOPHEN] Adverse Reaction (Unknown, Verified 05/20/23 10:39) STOMACH UPSET-N/V HPI HPI Comments History of Present Illness Details Palma is in my office today for dressing change and the further action discussion. The dressing was removed today and wounds were worst with ChloraPrep. The edges of the wounds are competent. No redness, no swelling, no pathological discharge, minimal tenderness on palpation. No local temperature detected. The wounds were applied with bacitracin and draped with sterile 4x4s and Tegaderm drape. Next week she will come for staple removal. We discussed treatment start today. When her pain of the pump implant is completely resolved I will order medication probably fentanyl about 60 micro g per mL. I will start with minimal rate of fentanyl probably 10 micro g a day. The patient is very welcome to come to the office once in 3-4 days and have her medications escalated until the side effects or until pain relief completed. She went forthe trial of intrathecal drug delivery system cervical position which was performed on 01/27/2023. She reports 100% pain relief immediately after the trial. She reports today 10 days after the trial still absence of pain in the cervical spine absence of stiffness improved mobility of the cervical spine. 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 She was in this office under works with chronic pain syndrome, chronic cervicalgia, cervical radiculopathy, occipital headache.? She was offered intrathecal drug delivery system pain pump trial to help her pain.? She was given psychological approval by the [facility] despite the previous history as above. [facility] Medical History (Updated 05/13/23 @ 06:20 by Kristal Braun RN) CVA (cerebral vascular accident) Post-laminectomy syndrome Migraines Bipolar disorder Surgical History (Updated 05/11/23 @ 13:58 by Bre Virk RN) H/O total hysterectomy History of arthroscopic knee surgery History of tubal ligation Hx of neck surgery History of lumpectomy of left breast Family History Mother Breast CA Thyroid cancer Ovarian cancer Uterine cancer CHF (congestive heart failure) Paternal Grandmother Lung cancer Paternal Uncle Colon cancer Social History Alcohol intake: current Alcohol intake frequency: holidays/special occasions only Patient Tobacco Use Status: Current everyday Tobacco user Cigarettes Per Day: 10 Substance Use Type: Marijuana Review of Systems Const All systems reviewed & are unremarkable except as noted in HPI and below ENT Reports Normal hearing present Neuro Reports Normal hearing present, Denies Abnormal speech present and Denies confusion Psych Denies confusion Physical Exam Vital Signs: Last Vital Signs Pulse 92 05/20/23 10:39 Resp 16 05/20/23 10:39 BP 120/90 H 05/20/23 10:39 Pulse Ox 97 05/20/23 10:39 Oxygen Delivery Method Room Air 05/20/23 10:39 BMI result Body Mass Index 33.4 Const General: No confusion Orientation/consciousness: No confusion HEENT Head: Yes normocephalic and Yes atraumatic Ears: hearing grossly normal bilaterally Eyes General: appearance normal, both eyes and all related structures Eyelids: Yes eyelids normal Pupils: Equal, round and reactive pupils present EOM: EOMs intact bilaterally Neck Other: Significant posterior scars midline incision on the neck are detected. The the scar is a very well-healed Neck: Yes normal visual inspection and Yes no JVD Resp Effort & Inspection: normal respiratory effort, able to speak in complete sentences and no audible wheezes Cardio Jugular venous distension: no JVD Neuro General: No confusion Cranial nerves: Yes Equal, round and reactive pupils present and Yes Normal hearing present Cognition (Neuro): normal cognition Speech: No Abnormal speech present Psych Appearance: grossly normal Mental Status: mental status grossly normal Speech and movement: Normal speech and movement present Affect: normal affect Attitude: cooperative Thought process: Normal thought process present Thought content: Normal thought content present Insight: Good insight present (Psych) Judgement: Good judgement present (Psych) Assessment & Plan Assessment & Plan (1) Postlaminectomy syndrome, cervical: Code(s): M96.1 - Postlaminectomy syndrome, not elsewhere classified (2) Occipital neuralgia: Code(s): M54.81 - Occipital neuralgia (3) Muscle spasms of neck: Code(s): M62.838 - Other muscle spasm (4) Migraines: Code(s): G43.909 - Migraine, unspecified, not intractable, without status migrainosus (5) Cervical radiculitis: Code(s): M54.12 - Radiculopathy, cervical region (6) Bipolar disorder in full remission: Code(s): F31.70 - Bipolar disorder, currently in remission, most recent episode unspecified Plan Excellent results of intrathecal drug delivery system trial pain pump 10 days of complete pain relief and complete relief of stiffness of the neck. She received 30 micro g of fentanyl intrathecally for the trial. The pump implant was performed 1 week ago 05/13/2023. Now we are waiting for complete resolution of pain in incision. After that I will fill up the pump with fentanyl and will start escalation of the doses. Next week She will come here I will remove her ryamond. She was given instructions to were abdominal binder for 6 more weeks. She was explained limitations on activities of daily living with avoidance of torso turning twisting sharp bending as well as heavy lifting. Coding Level of Care Code Est Pt Level 3 (26721) Diagnoses Postlaminectomy syndrome, cervical M96.1 Occipital neuralgia M54.81 Muscle spasms of neck M62.838 Migraines G43.909 Cervical radiculitis M54.12 Bipolar disorder in full remission F31.70
== END 2023-05-20 10:47 | disposition home or self-care (01) ==
PROVIDERS: PCP Registered Nurse; Visit Provider Anesthesiology
DX: M96.1 Postlaminectomy syndrome, not elsewhere classified (principal); M54.81 Occipital neuralgia; M62.838 Other muscle spasm; G43.909 Migraine, unspecified, not intractable, without status migrainosus; M54.12 Radiculopathy, cervical region; F31.70 Bipolar disorder, currently in remission, most recent episode unspecified
CPT/HCPCS: 99024

== ENCOUNTER → 2023-05-20 10:03 | Outpatient (BNVA) | payer MEDICAID, SELFPAY | PROVIDERS: PCP Registered Nurse; Visit Provider Anesthesiology | DX: M96.1 Postlaminectomy syndrome, not elsewhere classified (principal); M54.81 Occipital neuralgia; M62.838 Other muscle spasm; G43.909 Migraine, unspecified, not intractable, without status migrainosus; M54.12 Radiculopathy, cervical region; F31.70 Bipolar disorder, currently in remission, most recent episode unspecified; Z97.8 Presence of other specified devices | CPT/HCPCS: 99212 ==

== ENCOUNTER 2023-05-27 11:18 | Outpatient (AMB) | payer MEDICAID, SELFPAY ==
[2023-05-27 11:32] VITALS: BP 130/80; PULSE 80; RESP 16; O2SAT 96; BMI 33.3
--- NOTE | 2023-05-27 11:32 | MHC.OFFVIS ---
Intake Vital Signs 05/27/23 11:32 Height 5 ft 1 in Weight 176 lb BMI 33.3 BP 130/80 Blood Pressure Location Lt brachial Position Sitting Respiration 16 Pulse 80 Pulse Source Pulse Oximeter Pulse Oximetry (%) 96 Oxygen Delivery Method Room Air Intake Visit Reasons: S/p ITDD Pain Pump Implant, C7 05/13/23 Allergies amoxicillin [Amoxicillin] Allergy (Severe, Verified 05/27/23 11:33) Anaphylaxis bee pollen [BEE STINGS] Allergy (Severe, Verified 05/27/23 11:33) SWELLING erythromycin base [From E.E.S. 200] Allergy (Mild, Verified 05/27/23 11:33) HIVES ketorolac [From Toradol] Allergy (Mild, Verified 05/27/23 11:33) HIVES Penicillins Allergy (Mild, Verified 05/27/23:) HIVES ibuprofen [IBUPROFEN] Allergy (Unknown, Verified 05/27/23 11:33) STOMACH UPSET-N/V acetaminophen [ACETAMINOPHEN] Adverse Reaction (Unknown, Verified 05/27/23) STOMACH UPSET-N/V HPI HPI Comments History of Present Illness Details Palma is in my office today for dressing change and the further action discussion. The dressing was removed today and wounds were washed with ChloraPrep. The edges of the wounds are competent. No redness, no swelling, no pathological discharge, minimal tenderness on palpation. No local temperature detected. [place] were removed, the wounds were washed with ChloraPrep again. The wounds were applied with bacitracin and draped with sterile 4x4s and Tegaderm drape. She no longer reports any pain from the incisions. We will order new batch of fentanyl medication for her 40 micrograms/mL. I will start with minimal rate of fentanyl probably 10 micro g a day. The patient is very welcome to come to the office once in 3 days and have her medications escalated until the side effects or until pain relief completed. She went for the trial of intrathecal drug delivery system cervical position which was performed on 01/27/2023. She reports 100% pain relief immediately after the trial. She reports today 10 days after the trial still absence of pain in the cervical spine absence of stiffness improved mobility of the cervical spine. 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 She was in this office under works with chronic pain syndrome, chronic cervicalgia, cervical radiculopathy, occipital headache.? She was offered intrathecal drug delivery system pain pump trial to help her pain.? She was given psychological approval by the [facility] despite the previous history as above. [facility] Medical History (Updated 05/13/23 @ 06:20 by Kristal Braun RN) CVA (cerebral vascular accident) Post-laminectomy syndrome Migraines Bipolar disorder Surgical History (Updated 05/11/23 @ 13:58 by Bre Virk RN) H/O total hysterectomy History of arthroscopic knee surgery History of tubal ligation Hx of neck surgery History of lumpectomy of left breast Family History Mother Breast CA Thyroid cancer Ovarian cancer Uterine cancer CHF (congestive heart failure) Paternal Grandmother Lung cancer Paternal Uncle Colon cancer Social History Alcohol intake: current Alcohol intake frequency: holidays/special occasions only Patient Tobacco Use Status: Current everyday Tobacco user Cigarettes Per Day: 10 Substance Use Type: Marijuana Review of Systems Const All systems reviewed & are unremarkable except as noted in HPI and below ENT Reports Normal hearing present Neuro Reports Normal hearing present, Denies Abnormal speech present and Denies confusion Psych Denies confusion Physical Exam Vital Signs: Last Vital Signs Pulse 80 05/27/23 11:32 Resp 16 05/27/23 11:32 BP 130/80 05/27/23 11:32 Pulse Ox 96 05/27/23 11:32 Oxygen Delivery Method Room Air 05/27/23 11:32 BMI result Body Mass Index 33.3 Const General: No confusion Orientation/consciousness: No confusion HEENT Head: Yes normocephalic and Yes atraumatic Ears: hearing grossly normal bilaterally Eyes General: appearance normal, both eyes and all related structures Eyelids: Yes eyelids normal Pupils: Equal, round and reactive pupils present EOM: EOMs intact bilaterally Neck Other: Significant posterior scars midline incision on the neck are detected. The the scar is a very well-healed Neck: Yes normal visual inspection and Yes no JVD Resp Effort & Inspection: normal respiratory effort, able to speak in complete sentences and no audible wheezes Cardio Jugular venous distension: no JVD Neuro General: No confusion Cranial nerves: Yes Equal, round and reactive pupils present and Yes Normal hearing present Cognition (Neuro): normal cognition Speech: No Abnormal speech present Psych Appearance: grossly normal Mental Status: mental status grossly normal Speech and movement: Normal speech and movement present Affect: normal affect Attitude: cooperative Thought process: Normal thought process present Thought content: Normal thought content present Insight: Good insight present (Psych) Judgement: Good judgement present (Psych) Assessment & Plan Assessment & Plan (1) Postlaminectomy syndrome, cervical: Code(s): M96.1 - Postlaminectomy syndrome, not elsewhere classified (2) Occipital neuralgia: Code(s): M54.81 - Occipital neuralgia (3) Muscle spasms of neck: Code(s): M62.838 - Other muscle spasm (4) Migraines: Code(s): G43.909 - Migraine, unspecified, not intractable, without status migrainosus (5) Cervical radiculitis: Code(s): M54.12 - Radiculopathy, cervical region (6) Bipolar disorder in full remission: Code(s): F31.70 - Bipolar disorder, currently in remission, most recent episode unspecified Plan Excellent results of intrathecal drug delivery system trial pain pump 10 days of complete pain relief and complete relief of stiffness of the neck. She received 30 micro g of fentanyl intrathecally for the trial. The pump implant was performed 1 week ago 05/13/2023. She no longer complains on pain on the incision. I will start her next week on fentanyl 10 mcg a day. It will be 0.4 mcg of fentanyl per hour. I believe this is safe dose of the medication. 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 She will continue to were abdominal binder for the next 6 weeks. She was explained limitations on activities of daily living with avoidance of torso turning twisting sharp bending as well as heavy lifting. Coding Level of Care Code Est Pt Level 4 (26514) Diagnoses Postlaminectomy syndrome, cervical M96.1 Occipital neuralgia M54.81 Muscle spasms of neck M62.838 Migraines G43.909 Cervical radiculitis M54.12 Bipolar disorder in full remission F31.70
== END 2023-05-27 11:44 | disposition home or self-care (01) ==
PROVIDERS: PCP Registered Nurse; Visit Provider Anesthesiology
DX: M96.1 Postlaminectomy syndrome, not elsewhere classified (principal); M54.81 Occipital neuralgia; M62.838 Other muscle spasm; G43.909 Migraine, unspecified, not intractable, without status migrainosus; M54.12 Radiculopathy, cervical region; F31.70 Bipolar disorder, currently in remission, most recent episode unspecified
CPT/HCPCS: 99214

== ENCOUNTER → 2023-05-27 11:18 | Outpatient (BNVA) | payer MEDICAID, SELFPAY | PROVIDERS: PCP Registered Nurse; Visit Provider Anesthesiology | DX: Z97.8 Presence of other specified devices (principal); F31.70 Bipolar disorder, currently in remission, most recent episode unspecified; M96.1 Postlaminectomy syndrome, not elsewhere classified; M54.81 Occipital neuralgia; M62.838 Other muscle spasm; M54.12 Radiculopathy, cervical region; G43.909 Migraine, unspecified, not intractable, without status migrainosus | CPT/HCPCS: 99212 ==

== ENCOUNTER 2023-06-03 08:00 | Outpatient (AMB) | payer MEDICAID, SELFPAY ==
--- NOTE | 2023-06-03 08:09 | A.OFFVIS_ITS ---
Intake Vital Signs 06/03/23 08:28 Height 5 ft 1 in Weight 171 lb 2 oz BMI 32.3 BP 112/74 Blood Pressure Location Lt brachial Position Sitting Respiration 16 Pulse 83 Pulse Source Pulse Oximeter Pulse Oximetry (%) 97 Oxygen Delivery Method Room Air Intake Visit Reasons: Medication discussion regarding Fent ITDD Allergies amoxicillin [Amoxicillin] Allergy (Severe, Verified 06/03/23 08:27) Anaphylaxis bee pollen [BEE STINGS] Allergy (Severe, Verified 06/03/23 08:27) SWELLING erythromycin base [From E.E.S. 200] Allergy (Mild, Verified 06/03/23 08:27) HIVES ketorolac [From Toradol] Allergy (Mild, Verified 06/03/23 08:27) HIVES Penicillins Allergy (Mild, Verified 06/03/23 08:) HIVES ibuprofen [IBUPROFEN] Allergy (Unknown, Verified 06/03/23 08:27) STOMACH UPSET-N/V acetaminophen [ACETAMINOPHEN] Adverse Reaction (Unknown, Verified 06/03/23 08:) STOMACH UPSET-N/V HPI HPI Comments History of Present Illness Details Palma is in my office today to discuss the situation with her me dication. It became known to us that she is receiving large doses of benzodiazepines by her psychiatry [employer] Ms. Meghann Munoz. It is alprazolam 1 mg t.i.d. which was recently increased. On top of that she is on Seroquel and Trileptal to treat her bipolar disorder. With this regimen she is stable. I contacted Ms. Munoz and we had collegeal discussion about Palma's case. We agreed that will started taper of benzodiazepines now the order for me to be ready to refill her pain pump. I prescribed to her hydroxyzine . She reports that it helps her to sleep at night already. This is good sign. It must be helping her for anxiety if it put her to sleep. I recommended her to take possibly 1-2 pills to help her sleep at night and half a pill 1 pill only for anxiety. After she will taper her alprazolam to more appropriate levels next week I will refill her pump and start slowly escalate her. Will continue taper of alprazolam while we escalate fentanyl doses. Eventually when Palma pain is under control the alprazolam may be introduced if necessary. Personally I would prefer of course that she would stay away from any benzodiazepines but at that that might be impractical. In any way extreme caution is needs to be observed when combination of intrathecal cervically administered fentanyl is combined with oral benzodiazepines. I would greatly discouraged her to take this combination at night. Possibly during the daytime she may take small doses of alprazolam provided that she is under close observation and monitoring with blood pressure and pulse oximetry. She has naloxone at home. She will come next week and I will fill her pump with 1st batch of fentanyl with concentration of 70 mcg per mL 20 mL. She went for the trial of intrathecal drug delivery system cervical position which was performed on 01/27/2023. She reports 100% pain relief immediately after the trial. She reports today 10 days after the trial still absence of pain in the cervical spine absence of stiffness improved mobility of the cervical spine. 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 She was in this office under works with chronic pain syndrome, chronic cervicalgia, cervical radiculopathy, occipital headache.? She was offered intrathecal drug delivery system pain pump trial to help her pain.? She was given psychological approval by the [facility] despite the previous history as above. [facility] Medical History (Updated 05/13/23 @ 06:20 by Kristal Braun RN) CVA (cerebral vascular accident) Post-laminectomy syndrome Migraines Bipolar disorder Surgical History (Updated 05/11/23 @ 13:58 by Bre Virk RN) H/O total hysterectomy History of arthroscopic knee surgery History of tubal ligation Hx of neck surgery History of lumpectomy of left breast Family History Mother Breast CA Thyroid cancer Ovarian cancer Uterine cancer CHF (congestive heart failure) Paternal Grandmother Lung cancer Paternal Uncle Colon cancer Social History Alcohol intake: current Alcohol intake frequency: holidays/special occasions only Patient Tobacco Use Status: Current everyday Tobacco user Cigarettes Per Day: 10 Substance Use Type: Marijuana Review of Systems Const All systems reviewed & are unremarkable except as noted in HPI and below ENT Reports Normal hearing present Neuro Reports Normal hearing present, Denies Abnormal speech present and Denies confusion Psych Denies confusion Physical Exam Vital Signs: Last Vital Signs Pulse 83 06/03/23 08:28 Resp 16 06/03/23 08:28 BP 112/74 06/03/23 08:28 Pulse Ox 97 06/03/23 08:28 Oxygen Delivery Method Room Air 06/03/23 08:28 BMI result Body Mass Index 32.3 Const General: No confusion Orientation/consciousness: No confusion HEENT Head: Yes normocephalic and Yes atraumatic Ears: hearing grossly normal bilaterally Eyes General: appearance normal, both eyes and all related structures Eyelids: Yes eyelids normal Pupils: Equal, round and reactive pupils present EOM: EOMs intact bilaterally Neck Other: Significant posterior scars midline incision on the neck are detected. The the scar is a very well-healed Neck: Yes normal visual inspection and Yes no JVD Resp Effort & Inspection: normal respiratory effort, able to speak in complete sentences and no audible wheezes Cardio Jugular venous distension: no JVD Neuro General: No confusion Cranial nerves: Yes Equal, round and reactive pupils present and Yes Normal h earing present Cognition (Neuro): normal cognition Speech: No Abnormal speech present Psych Appearance: grossly normal Mental Status: mental status grossly normal Speech and movement: Normal speech and movement present Affect: normal affect Attitude: cooperative Thought process: Normal thought process present Thought content: Normal thought content present Insight: Good insight present (Psych) Judgement: Good judgement present (Psych) Assessment & Plan Assessment & Plan (1) Postlaminectomy syndrome, cervical: Code(s): M96.1 - Postlaminectomy syndrome, not elsewhere classified (2) Occipital neuralgia: Code(s): M54.81 - Occipital neuralgia (3) Muscle spasms of neck: Code(s): M62.838 - Other muscle spasm (4) Migraines: Code(s): G43.909 - Migraine, unspecified, not intractable, without status migrainosus (5) Cervical radiculitis: Code(s): M54.12 - Radiculopathy, cervical region (6) Bipolar disorder in full remission: Code(s): F31.70 - Bipolar disorder, currently in remission, most recent episode unspecified Plan Excellent results of intrathecal drug delivery system trial pain pump 10 days of complete pain relief and complete relief of stiffness of the neck. She received 30 micro g of fentanyl intrathecally for the trial. The pump implant was performed 05/13/2023. She no longer complains on pain on the incision. Our attention was attracted to another provider prescribing her alprazolam with recent dose escalation. Discussion with the provider is as above. Next week will feel her pump with fentanyl. Patient Instructions: I here by testify that I spent 1 hour today examining the patient, discussing the situation with the patient, discussing patient's case with her nurse practitioner in psychiatry and planning the future care for the patient. Coding Level of Care Code Est Pt Level 5 (04675) Diagnoses Postlaminectomy syndrome, cervical M96.1 Occipital neuralgia M54.81 Muscle spasms of neck M62.838 Migraines G43.909 Cervical radiculitis M54.12 Bipolar disorder in full remission F31.70
[2023-06-03 08:28] VITALS: BP 112/74; PULSE 83; RESP 16; O2SAT 97; BMI 32.3
== END 2023-06-03 08:32 | disposition home or self-care (01) ==
PROVIDERS: PCP Registered Nurse; Visit Provider Anesthesiology
DX: M96.1 Postlaminectomy syndrome, not elsewhere classified (principal); M54.81 Occipital neuralgia; M62.838 Other muscle spasm; G43.909 Migraine, unspecified, not intractable, without status migrainosus; M54.12 Radiculopathy, cervical region; F31.70 Bipolar disorder, currently in remission, most recent episode unspecified
CPT/HCPCS: 99215

== ENCOUNTER → 2023-06-03 08:00 | Outpatient (BNVA) | payer MEDICAID, SELFPAY | PROVIDERS: PCP Registered Nurse; Visit Provider Anesthesiology | DX: M96.1 Postlaminectomy syndrome, not elsewhere classified (principal); M54.81 Occipital neuralgia; M62.838 Other muscle spasm; M54.12 Radiculopathy, cervical region; G43.909 Migraine, unspecified, not intractable, without status migrainosus; F31.70 Bipolar disorder, currently in remission, most recent episode unspecified | CPT/HCPCS: 99212 ==

== ENCOUNTER 2023-06-11 10:02 | Outpatient (AMB) | payer MEDICAID, SELFPAY ==
--- NOTE | 2023-06-11 10:06 | A.OFFVIS_ITS ---
Intake Vital Signs 06/11/23 10:56 Height 5 ft 1 in Weight 170 lb BMI 32.1 BP 142/82 H Blood Pressure Location Lt brachial Position Sitting Respiration 16 Pulse 95 Pulse Source Pulse Oximeter Pulse Oximetry (%) 97 Oxygen Delivery Method Room Air Intake Visit Reasons: Pain pump refill/confirmed Allergies amoxicillin [Amoxicillin] Allergy (Severe, Verified 06/11/23 10:58) Anaphylaxis bee pollen [BEE STINGS] Allergy (Severe, Verified 06/11/23 10:58) SWELLING erythromycin base [From E.E.S. 200] Allergy (Mild, Verified 06/11/23 10:58) HIVES ketorolac [From Toradol] Allergy (Mild, Verified 06/11/23 10:58) HIVES Penicillins Allergy (Mild, Verified 06/11/23 10:58) HIVES ibuprofen [IBUPROFEN] Allergy (Unknown, Verified 06/11/23 10:58) STOMACH UPSET-N/V acetaminophen [ACETAMINOPHEN] Adverse Reaction (Unknown, Verified 06/11/23 10:58) STOMACH UPSET-N/V HPI HPI Comments History of Present Illness Details Palma is in my office today to fill up her medication for the first time into her intrathecal pain pump cervical position. She is suffering from postlaminectomy sydrome of the cervical spine with very extensive hardware for fusion in the anterior and posterior cervical spine on multiple levels. She has severe pian syndrome with most of the pain in the lower cervical and upper thoracic spine projection She went for the trial of intrathecal drug delivery system cervical position which was performed on 01/27/2023. She reports 100% pain relief immediately after the trial. She reports today 10 days after the trial still absence of pain in the cervical spine absence of stiffness improved mobility of the cervical spine. She was implanted with ITDD with the tip of the catheter at bottom of C7 position and the catheter was filled with normal saline. Today she received as below the fentanyl into the pump. She stopped her benzodiazepines and she started hydroxyzine. She reports very good help of hydroxyzine for her anxiety and insomnia. Very detailed instructions were given to the patient about her pump, possible side effects and complications. The patient and her daughter who was with her during the visit. They will be using frequent pulse oxymetry frequently during the day time and contionuous pulse oxymetry during the night. Her daughter expressed to me that she and the of the patient will be taking turns at night and monitor the O2 sat numbers. They were explianed today that if the pulse oxymetry is in the lower 90 or higher 80 numbers they should count the patient's respiratory rate. If the numbers are below 88% and respiratory rate will be below 9 breaths a minute they should wake the patient using gentle but persistent stimulation such as shaking, sternal rub and pressure and voice. If the patient is not responsive they must administer naloxone intranasally, apply magnet to the location of the pump in the upper buttock and call 911 to go to the ER JAMEEL. They expressed understanding. They reported that they have the pulse oxymeter, BP device and naloxone at their household. 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 She was in this office under works with chronic pain syndrome, chronic cervicalgia, cervical radiculopathy, occipital headache.? She was offered intrathecal drug delivery system pain pump trial to help her pain.? She was given psychological approval by the [facility] despite the previous history as above. [facility] Medical History (Updated 05/13/23 @ 06:20 by Kristal Braun, AUGUSTUS) CVA (cerebral vascular accident) Post-laminectomy syndrome Migraines Bipolar disorder Surgical History (Updated 05/11/23 @ 13:58 by Bre Virk RN) H/O total hysterectomy History of arthroscopic knee surgery History of tubal ligation Hx of neck surgery History of lumpectomy of left breast Family History Mother Breast CA Thyroid cancer Ovarian cancer Uterine cancer CHF (congestive heart failure) Paternal Grandmother Lung cancer Paternal Uncle Colon cancer Social History Alcohol intake: current Alcohol intake frequency: holidays/special occasions only Patient Tobacco Use Status: Current everyday Tobacco user Cigarettes Per Day: 10 Substance Use Type: Marijuana Review of Systems Const All systems reviewed & are unremarkable except as noted in HPI and below ENT Reports Normal hearing present Neuro Reports Normal hearing present, Denies Abnormal speech present and Denies confusion Psych Denies confusion Physical Exam Vital Signs: Last Vital Signs Pulse 95 06/11/23 10:56 Resp 16 10/26/23 10:56 BP 142/82 H 06/11/23 10:56 Pulse Ox 97 06/11/23 10:56 Oxygen Delivery Method Room Air 06/11/23 10:56 BMI result Body Mass Index 32.1 Const General: No confusion Orientation/consciousness: No confusion HEENT Head: Yes normocephalic and Yes atraumatic Ears: hearing grossly normal bilaterally Eyes General: appearance normal, both eyes and all related structures Eyelids: Yes eyelids normal Pupils: Equal, round and reactive pupils present EOM: EOMs intact bilaterally Neck Other: Significant posterior scars midline incision on the neck are detected. The the scar is a very well-healed Neck: Yes normal visual inspection and Yes no JVD Resp Effort & Inspection: normal respiratory effort, able to speak in complete sentences and no audible wheezes Cardio Jugular venous distension: no JVD Neuro General: No confusion Cranial nerves: Yes Equal, round and reactive pupils present and Yes Normal hearing present Cognition (Neuro): normal cognition Speech: No Abnormal speech present Psych Appearance: grossly normal Mental Status: mental status grossly normal Speech and movement: Normal speech and movement present Affect: normal affect Attitude: cooperative Thought process: Normal thought process present Thought content: Normal thought content present Insight: Good insight present (Psych) Judgement: Good judgement present (Psych) Assessment & Plan Assessment & Plan (1) Postlaminectomy syndrome, cervical: Code(s): M96.1 - Postlaminectomy syndrome, not elsewhere classified Plan: Intrathecal pump refill. THE PATIENT CAME TODAY IN THE office FOR THE CHANGE OF THE MEDICATION IN her PAIN PUMP. The name and date of were verified and informed consent was obtained for the procedure. ?The pump was interrogated and the residual amount of fluid was found to be 18.3 mL. SHE WAS POSITIONED prone on the bed AND THE AREA OF THE INTRATHECAL PUMP WAS PREPPED WITH CHLORAPREP. The fenestrated drape was sterilely applied over the area of the pump. Sterile gloves were worn and the aspiration system was assembled containing 2 in 22 gauge noncoring needle, the needle was connected to extension tubing which was connected to the 20 cc sterile syringe. The pain pump was palpated under the skin in the patient's upper buttock area. The needle was inserted through the skin and the central plug of the pain pump and fluid was aspirated. The clear fluid was going into the syringe the total amount of the fluid was 18.3 mL .. After that a new batch? of medication was obtained which was containing Fentanyl in concentration 40 micro g/ml The admixture was made in 20 cc syringe prepared by [facility] compounding pharmacy. The syringe was connected to the bacterial filter, and then connected to the extension tubing. After that the medication in the syringe was slowly instilled into the pump with aspirations at 15 and 5 cc hallman.? The pump was reprogrammed for the doses Fentanyl 9 mcg per day.? no PTM (2) Occipital neuralgia: Code(s): M54.81 - Occipital neuralgia (3) Muscle spasms of neck: Code(s): M62.838 - Other muscle spasm (4) Migraines: Code(s): G43.909 - Migraine, unspecified, not intractable, without status migrainosus (5) Cervical radiculitis: Code(s): M54.12 - Radiculopathy, cervical region (6) Bipolar disorder in full remission: Code(s): F31.70 - Bipolar disorder, currently in remission, most recent episode unspecified Plan Excellent results of intrathecal drug delivery system trial pain pump 10 days of complete pain relief and complete relief of stiffness of the neck. She received 30 micro g of fentanyl intrathecally for the trial. The pump implant was performed 05/13/2023. She no longer complains on pain on the incision. She reported she stopped alpresolam and uses hydroxyzine successfully intread. The pump was filled with the fentanyl as above. The care instructions were given to the patient as above. Patient Instructions: I hereby testify that I spent 50 minutes in conversation with the patient and her daughter as well as planning her care organizing the note and explaining precauthions and actions they should take in case of possible It medication delivery complications Coding Level of Care Code Est Pt Level 5 (90361) Procedure Only Diagnoses Postlaminectomy syndrome, cervical M96.1 Occipital neuralgia M54.81 Muscle spasms of neck M62.838 Migraines G43.909 Cervical radiculitis M54.12 Bipolar disorder in full remission F31.70
[2023-06-11 10:56] VITALS: BP 142/82; PULSE 95; RESP 16; O2SAT 97; BMI 32.1
== END 2023-06-11 10:36 | disposition home or self-care (01) ==
PROVIDERS: PCP Registered Nurse; Visit Provider Anesthesiology
DX: Z45.1 Encounter for adjustment and management of infusion pump (principal); M96.1 Postlaminectomy syndrome, not elsewhere classified; M54.81 Occipital neuralgia; M62.838 Other muscle spasm; G43.909 Migraine, unspecified, not intractable, without status migrainosus
CPT/HCPCS: 62370; 99215

== ENCOUNTER → 2023-06-11 10:02 | Outpatient (BNVA) | payer MEDICAID, SELFPAY | PROVIDERS: PCP Registered Nurse; Visit Provider Anesthesiology | DX: Z45.1 Encounter for adjustment and management of infusion pump (principal); M96.1 Postlaminectomy syndrome, not elsewhere classified; M54.81 Occipital neuralgia; M62.838 Other muscle spasm; M54.12 Radiculopathy, cervical region; G43.909 Migraine, unspecified, not intractable, without status migrainosus; F31.70 Bipolar disorder, currently in remission, most recent episode unspecified | CPT/HCPCS: 62370; 99212 ==

== ENCOUNTER 2023-06-15 09:06 | Outpatient (AMB) | payer MEDICAID, SELFPAY ==
[2023-06-15 09:38] VITALS: BP 124/84; PULSE 79; O2SAT 96
--- NOTE | 2023-06-15 09:38 | MHC.OFFVIS ---
Intake Vital Signs 06/15/23 09:38 BP 124/84 Blood Pressure Location Rt brachial Position Sitting Pulse 79 Pulse Source Pulse Oximeter Pulse Oximetry (%) 96 Oxygen Delivery Method Room Air Intake Visit Reasons: Pain pump adjustments Intake Note: Pt here for pump adjustments Allergies amoxicillin [Amoxicillin] Allergy (Severe, Verified 06/11/23 10:58) Anaphylaxis bee pollen [BEE STINGS] Allergy (Severe, Verified 06/11/23 10:58) SWELLING erythromycin base [From E.E.S. 200] Allergy (Mild, Verified 06/11/23 10:58) HIVES ketorolac [From Toradol] Allergy (Mild, Verified 06/11/23 10:58) HIVES Penicillins Allergy (Mild, Verified 06/11/23 10:58) HIVES ibuprofen [IBUPROFEN] Allergy (Unknown, Verified 06/11/23 10:58) STOMACH UPSET-N/V acetaminophen [ACETAMINOPHEN] Adverse Reaction (Unknown, Verified 06/11/23 10:58) STOMACH UPSET-N/V HPI HPI Comments History of Present Illness Details Palma is in my office today to adjust level of the medication her intrathecal pain pump. Her pain pump dose was increased from 9 micro g a day to 12 micro g a day. During the previous period with 9 micro g a day 1 week ago she reported moderate improvement with her pain and better neck mobility. She brought me the results of pulse oximetry and nothing is below 90 %. Therefore where very safe. The pump was interrogated today (see as below) and the dose of the medication was increased to 12 micro g a day. She reports that her primary care physician resigned his position with [facility] and now she is without primary care physician. She reports her blood pressure is being unstable and so is her heart rate. I recommended her to go to urgent care now to adjust medication of her better blockers, I also offered her to get primary care physician with our primary care physician group. Prior: She went for the trial of intrathecal drug delivery system cervical position which was performed on 01/27/2023. She reports 100% pain relief immediately after the trial. She reports today 10 days after the trial still absence of pain in the cervical spine absence of stiffness improved mobility of the cervical spine. She was implanted with ITDD with the tip of the catheter at bottom of C7 position and the catheter was filled with normal saline. Today she received as below the fentanyl into the pump. She stopped her benzodiazepines and she started hydroxyzine. She reports very good help of hydroxyzine for her anxiety and insomnia. Very detailed instructions were given to the patient about her pump, possible side effects and complications. The patient and her daughter who was with her during the visit. They will be using frequent pulse oxymetry frequently during the day time and contionuous pulse oxymetry during the night. Her daughter expressed to me that she and the of the patient will be taking turns at night and monitor the O2 sat numbers. They were explianed today that if the pulse oxymetry is in the lower 90 or higher 80 numbers they should count the patient's respiratory rate. If the numbers are below 88% and respiratory rate will be below 9 breaths a minute they should wake the patient using gentle but persistent stimulation such as shaking, sternal rub and pressure and voice. If the patient is not responsive they must administer naloxone intranasally, apply magnet to the location of the pump in the upper buttock and call 911 to go to the ER [facility]. They expressed understanding. They reported that they have the pulse oxymeter, BP device and naloxone at their household. 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 She was in this office under works with chronic pain syndrome, chronic cervicalgia, cervical radiculopathy, occipital headache.? She was offered intrathecal drug delivery system pain pump trial to help her pain.? She was given psychological approval by the [facility] despite the previous history as above. [facility] Medical History (Updated 05/13/23 @ 06:20 by Kristal Braun, AUGUSTUS) CVA (cerebral vascular accident) Post-laminectomy syndrome Migraines Bipolar disorder Surgical History (Updated 05/11/23 @ 13:58 by Bre Virk RN) H/O total hysterectomy History of arthroscopic knee surgery History of tubal ligation Hx of neck surgery History of lumpectomy of left breast Family History Mother Breast CA Thyroid cancer Ovarian cancer Uterine cancer CHF (congestive heart failure) Paternal Grandmother Lung cancer Paternal Uncle Colon cancer Social History Alcohol intake: current Alcohol intake frequency: holidays/special occasions only Patient Tobacco Use Status: Current everyday Tobacco user Cigarettes Per Day: 10 Substance Use Type: Marijuana Review of Systems Const All systems reviewed & are unremarkable except as noted in HPI and below ENT Reports Normal hearing present Neuro Reports Normal hearing present, Denies Abnormal speech present and Denies confusion Psych Denies confusion Physical Exam Vital Signs: Last Vital Signs Pulse 79 06/15/23 09:38 BP 124/84 06/15/23 09:38 Pulse Ox 96 06/15/23 09:38 Oxygen Delivery Method Room Air 06/15/23 09:38 Const General: No confusion Orientation/consciousness: No confusion HEENT Head: Yes normocephalic and Yes atraumatic Ears: hearing grossly normal bilaterally Eyes General: appearance normal, both eyes and all related structures Eyelids: Yes eyelids normal Pupils: Equal, round and reactive pupils present EOM: EOMs intact bilaterally Neck Other: Significant posterior scars midline incision on the neck are detected. The the scar is a very well-healed Neck: Yes normal visual inspection and Yes no JVD Resp Effort & Inspection: normal respiratory effort, able to speak in complete sentences and no audible wheezes Cardio Jugular venous distension: no JVD Neuro General: No confusion Cranial nerves: Yes Equal, round and reactive pupils present and Yes Normal hearing present Cognition (Neuro): normal cognition Speech: No Abnormal speech present Psych Appearance: grossly normal Mental Status: mental status grossly normal Speech and movement: Normal speech and movement present Affect: normal affect Attitude: cooperative Thought process: Normal thought process present Thought content: Normal thought content present Insight: Good insight present (Psych) Judgement: Good judgement present (Psych) Assessment & Plan Assessment & Plan (1) Postlaminectomy syndrome, cervical: Code(s): M96.1 - Postlaminectomy syndrome, not elsewhere classified Plan: Intrathecal pump refill. THE PATIENT CAME TODAY IN THE office FOR THE adjustment OF THE MEDICATION IN her PAIN PUMP. The name and date of were verified the pump was interrogated and the level of the medication was increased from 9 micro g a day to 12 micro g a day. This is 30% increase. Next increase will be on 05/18/2023. (2) Occipital neuralgia: Code(s): M54.81 - Occipital neuralgia (3) Muscle spasms of neck: Code(s): M62.838 - Other muscle spasm (4) Migraines: Code(s): G43.909 - Migraine, unspecified, not intractable, without status migrainosus (5) Cervical radiculitis: Code(s): M54.12 - Radiculopathy, cervical region (6) Bipolar disorder in full remission: Code(s): F31.70 - Bipolar disorder, currently in remission, most recent episode unspecified Plan Excellent results of intrathecal drug delivery system trial pain pump 10 days of complete pain relief and complete relief of stiffness of the neck. She received 30 micro g of fentanyl intrathecally for the trial. The pump implant was performed 05/13/2023. She no longer complains on pain on the incision. She reported she stopped alprasolam and uses hydroxyzine successfully instead. The pump was filled with the fentanyl as above. The care instructions were given to the patient as above. She needs primary care physician and I offered her to find primary care physician in the limits of the [facility] primary care groups. Coding Level of Care Code Est Pt Level 3 (74771) Procedure Only Diagnoses Postlaminectomy syndrome, cervical M96.1 Occipital neuralgia M54.81 Muscle spasms of neck M62.838 Migraines G43.909 Cervical radiculitis M54.12 Bipolar disorder in full remission F31.70
== END 2023-06-15 09:45 | disposition home or self-care (01) ==
PROVIDERS: PCP Registered Nurse; Visit Provider Anesthesiology
DX: M96.1 Postlaminectomy syndrome, not elsewhere classified (principal); M54.81 Occipital neuralgia; M62.838 Other muscle spasm; G43.909 Migraine, unspecified, not intractable, without status migrainosus; M54.12 Radiculopathy, cervical region; F31.70 Bipolar disorder, currently in remission, most recent episode unspecified
CPT/HCPCS: 62370

== ENCOUNTER → 2023-06-15 09:06 | Outpatient (BNVA) | payer MEDICAID, SELFPAY | PROVIDERS: PCP Registered Nurse; Visit Provider Anesthesiology | DX: Z45.89 Encounter for adjustment and management of other implanted devices (principal); M96.1 Postlaminectomy syndrome, not elsewhere classified; M54.81 Occipital neuralgia; M62.838 Other muscle spasm; M54.12 Radiculopathy, cervical region; G43.909 Migraine, unspecified, not intractable, without status migrainosus; F31.70 Bipolar disorder, currently in remission, most recent episode unspecified | CPT/HCPCS: 62370 ==

== ENCOUNTER 2023-06-18 08:13 | Outpatient (AMB) | payer MEDICAID, SELFPAY ==
--- NOTE | 2023-06-18 08:15 | A.OFFVIS_ITS ---
Intake Vital Signs 06/18/23 08:21 Height 5 ft 1 in Weight 170 lb BMI 32.1 BP 114/88 Blood Pressure Location Lt brachial Position Sitting Respiration 16 Pulse 100 Pulse Source Pulse Oximeter Pulse Oximetry (%) 98 Oxygen Delivery Method Room Air Intake Visit Reasons: ITDD Pump Adjustment/CONFIRMED Allergies amoxicillin [Amoxicillin] Allergy (Severe, Verified 06/18/23 08:21) Anaphylaxis bee pollen [BEE STINGS] Allergy (Severe, Verified 06/18/23 08:21) SWELLING erythromycin base [From E.E.S. 200] Allergy (Mild, Verified 06/18/23 08:21) HIVES ketorolac [From Toradol] Allergy (Mild, Verified 06/18/23 08:21) HIVES Penicillins Allergy (Mild, Verified 06/18/23:) HIVES ibuprofen [IBUPROFEN] Allergy (Unknown, Verified 06/18/23 08:) STOMACH UPSET-N/V acetaminophen [ACETAMINOPHEN] Adverse Reaction (Unknown, Verified 06/18/23:) STOMACH UPSET-N/V HPI HPI Comments History of Present Illness Details Palma is in my office today to adjust level of the medication her intrathecal pain pump. She continues to do pulse oximetry. She is asking me if she can received tatoo, unfortunately this is forbidden for the patient because of the bacteremia secondary to tattoo. I increase the dose of the medication today to 16 micro g a day, she will continue to use pass oximetry to monitor level of oxygen until with stop escalation 09/03. She reports only minimal discomfort in her neck pain. She asks me to refer her to physical therapy. I will send her for physical therapy in for deconditioning congregational. I also allowed her to do aerobic exercises such as elliptical machine stationary bicycle or swimming. 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 Prior: She went for the trial of intrathecal drug delivery system cervical position which was performed on 01/27/2023. She reports 100% pain relief immediately after the trial. She reports today 10 days after the trial still absence of pain in the cervical spine absence of stiffness improved mobility of the cervical spine. She was implanted with ITDD with the tip of the catheter at bottom of C7 position and the catheter was filled with normal saline. Today she received as below the fentanyl into the pump. She stopped her benzodiazepines and she started hydroxyzine. She reports very good help of hydroxyzine for her anxiety and insomnia. Very detailed instructions were given to the patient about her pump, possible side effects and complications. The patient and her daughter who was with her during the visit. They will be using frequent pulse oxymetry frequently during the day time and contionuous pulse oxymetry during the night. Her daughter expressed to me that she and the of the patient will be taking turns at night and monitor the O2 sat numbers. They were explianed today that if the pulse oxymetry is in the lower 90 or higher 80 numbers they should count the patient's respiratory rate. If the numbers are below 88% and respi ratory rate will be below 9 breaths a minute they should wake the patient using gentle but persistent stimulation such as shaking, sternal rub and pressure and voice. If the patient is not responsive they must administer naloxone intranasally, apply magnet to the location of the pump in the upper buttock and call 911 to go to the ER [facility]. They expressed understanding. They reported that they have the pulse oxymeter, BP device and naloxone at their household. 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 She was in this office under works with chronic pain syndrome, chronic cervicalgia, cervical radiculopathy, occipital headache.? She was offered intrathecal drug delivery system pain pump trial to help her pain.? She was given psychological approval by the [facility] despite the previous history as above. COUNT INCLUDES THE [facility] Medical History (Updated 06/18/23 @ 08:40 by Britton Mariscal MD) CVA (cerebral vascular accident) Post-laminectomy syndrome Migraines Bipolar disorder Surgical History (Updated 05/11/23 @ 13:58 by Bre Virk RN) H/O total hysterectomy History of arthroscopic knee surgery History of tubal ligation Hx of neck surgery History of lumpectomy of left breast Family History Mother Breast CA Thyroid cancer Ovarian cancer Uterine cancer CHF (congestive heart failure) Paternal Grandmother Lung cancer Paternal Uncle Colon cancer Social History Alcohol intake: current Alcohol intake frequency: holidays/special occasions only Patient Tobacco Use Status: Current everyday Tobacco user Cigarettes Per Day: 10 Substance Use Type: Marijuana Review of Systems Const All systems reviewed & are unremarkable except as noted in HPI and below ENT Reports Normal hearing present Neuro Reports Normal hearing present, Denies Abnormal speech present and Denies confusion Psych Denies confusion Physical Exam Const General: No confusion Orientation/consciousness: No confusion HEENT Head: Yes normocephalic and Yes atraumatic Ears: hearing grossly normal bilaterally Eyes General: appearance normal, both eyes and all related structures Eyelids: Yes eyelids normal Pupils: Equal, round and reactive pupils present EOM: EOMs intact bilaterally Neck Other: Significant posterior scars midline incision on the neck are detected. The the scar is a very well-healed Neck: Yes normal visual inspection and Yes no JVD Resp Effort & Inspection: normal respiratory effort, able to speak in complete sentences and no audible wheezes Cardio Jugular venous distension: no JVD Neuro General: No confusion Cranial nerves: Yes Equal, round and reactive pupils present and Yes Normal hearing present Cognition (Neuro): normal cognition Speech: No Abnormal speech present Psych Appearance: grossly normal Mental Status: mental status grossly normal Speech and movement: Normal speech and movement present Affect: normal affect Attitude: cooperative Thought process: Normal thought process present Thought content: Normal thought content present Insight: Good insight present (Psych) Judgement: Good judgement present (Psych) Assessment & Plan Assessment & Plan (1) Postlaminectomy syndrome, cervical: Code(s): M96.1 - Postlaminectomy syndrome, not elsewhere classified Plan: Intrathecal pump refill. THE PATIENT CAME TODAY IN THE office FOR THE adjustment OF THE MEDICATION IN her PAIN PUMP. The name and date of were verified the pump was interrogated and the level of the medication was increased from 9 micro g a day to 12 micro g a day. This is 30% increase. Next increase will be on 05/18/2023. (2) Occipital neuralgia: Code(s): M54.81 - Occipital neuralgia (3) Muscle spasms of neck: Code(s): M62.838 - Other muscle spasm (4) Migraines: Code(s): G43.909 - Migraine, unspecified, not intractable, without status migrainosus (5) Cervical radiculitis: Code(s): M54.12 - Radiculopathy, cervical region Plan: The pump was read today and she has significant amount of medication in the pump. She still is running 12 micro g of fentanyl a day today the does will be changed to 16 micro g of fentanyl a day. She already starts to feel significant decrease in the level of her pain. She asked me to send her to physical therapy for deconditioning. (6) Bipolar disorder in full remission: Code(s): F31.70 - Bipolar disorder, currently in remission, most recent episode unspecified (7) Physical deconditioning: Code(s): R53.81 - Other malaise Plan Excellent results of intrathecal drug delivery system trial pain pump 10 days of complete pain relief and complete relief of stiffness of the neck. She received 30 micro g of fentanyl intrathecally for the trial. The pump implant was performed 05/13/2023. Reports minimal discomfort in the projection of the pump Aspercreme without salicylic acid only lidocaine is recommended to applied to the area of the pump to minimize discomfort. Requests me to send her to physical therapy. The order will be sent. The physical therapies for deconditioning. Orders: Orders PT Evaluation and Treatment Today R53.81 - Other malaise Patient Instructions: I here by testify that I spent 20 minutes in conversation with this patient as well as reading her pump and interrogating the pump. The pump adjustment was made as above. Coding Level of Care Code Est Pt Level 3 (12608) Procedure Only Diagnoses Postlaminectomy syndrome, cervical M96.1 Occipital neuralgia M54.81 Muscle spasms of neck M62.838 Migraines G43.909 Cervical radiculitis M54.12 Bipolar disorder in full remission F31.70 Physical deconditioning R53.81
[2023-06-18 08:21] VITALS: BP 114/88; PULSE 100; RESP 16; O2SAT 98; BMI 32.1
== END 2023-06-18 08:42 | disposition home or self-care (01) ==
PROVIDERS: PCP Registered Nurse; Visit Provider Anesthesiology
DX: M96.1 Postlaminectomy syndrome, not elsewhere classified (principal); M54.81 Occipital neuralgia; R53.81 Other malaise; Z45.1 Encounter for adjustment and management of infusion pump; G43.909 Migraine, unspecified, not intractable, without status migrainosus; M54.12 Radiculopathy, cervical region; F31.70 Bipolar disorder, currently in remission, most recent episode unspecified
CPT/HCPCS: 62370

== ENCOUNTER → 2023-06-18 08:13 | Outpatient (BNVA) | payer MEDICAID, SELFPAY | PROVIDERS: PCP Registered Nurse; Visit Provider Anesthesiology | DX: Z45.1 Encounter for adjustment and management of infusion pump (principal); M96.1 Postlaminectomy syndrome, not elsewhere classified; M54.81 Occipital neuralgia; M54.12 Radiculopathy, cervical region; M62.838 Other muscle spasm; G43.709 Chronic migraine without aura, not intractable, without status migrainosus; R53.81 Other malaise; F31.70 Bipolar disorder, currently in remission, most recent episode unspecified | CPT/HCPCS: 62370 ==

== ENCOUNTER 2023-06-22 08:11 | Outpatient (AMB) | payer MEDICAID, SELFPAY ==
--- NOTE | 2023-06-22 08:27 | A.OFFVIS_ITS ---
Intake Vital Signs 06/22/23 08:38 Height 5 ft 1 in Weight 170 lb BMI 32.1 BP 126/82 Blood Pressure Location Lt brachial Position Sitting Respiration 14 Pulse 91 Pulse Source Pulse Oximeter Pulse Oximetry (%) 96 Oxygen Delivery Method Room Air Intake Visit Reasons: ITDD FOLLOW UP/LMOVM Intake Note: patient comes in for follow up. Allergies amoxicillin [Amoxicillin] Allergy (Severe, Verified 06/22/23 08:39) Anaphylaxis bee pollen [BEE STINGS] Allergy (Severe, Verified 06/22/23 08:39) SWELLING erythromycin base [From E.E.S. 200] Allergy (Mild, Verified 06/22/23 08:39) HIVES ketorolac [From Toradol] Allergy (Mild, Verified 06/22/23 08:39) HIVES Penicillins Allergy (Mild, Verified 06/22/23 08:39) HIVES ibuprofen [IBUPROFEN] Allergy (Unknown, Verified 06/22/23 08:39) STOMACH UPSET-N/V acetaminophen [ACETAMINOPHEN] Adverse Reaction (Unknown, Verified 06/22/23 08:39) STOMACH UPSET-N/V HPI HPI Comments History of Present Illness Details Palma is in my office today to discuss the intrathecal pain pump. She receives 16 micro g a day now. She reports absence of pain!. She might be able to return to her Xanax if the doses not changed. She has to continue pulse oximetry. I would not recommend very high doses of Xanax but moderate doses probably would be okay. Hydroxyzine make her angry and restless. This is paradoxic reaction. Possibility exists to treat her anxiety with SSRIs and or SNRIs which would be better than benzodiazepines. Her psychiatrist [employer] wants to discuss this issues with me. Prior: She went for the trial of intrathecal drug delivery system cervical position which was performed on 01/27/2023. She reports 100% pain relief immediately after the trial. She reports today 10 days after the trial still absence of pain in the cervical spine absence of stiffness improved mobility of the cervical spine. She was implanted with ITDD with the tip of the catheter at bottom of C7 position and the catheter was filled with normal saline. Today she received as below the fentanyl into the pump. She stopped her benzodiazepines and she started hydroxyzine. She reports very good help of hydroxyzine for her anxiety and insomnia. Very detailed instructions were given to the patient about her pump, possible side effects and complications. The patient and her daughter who was with her during the visit. They will be using frequent pulse oxymetry frequently during the day time and contionuous pulse oxymetry during the night. Her daughter expressed to me that she and the of the patient will be taking turns at night and monitor the O2 sat numbers. They were explianed today that if the pulse oxymetry is in the lower 90 or higher 80 numbers they should count the patient's respiratory rate. If the numbers are below 88% and respiratory rate will be below 9 breaths a minute they should wake the patient using gentle but persistent stimulation such as shaking, sternal rub and pressure and voice. If the patient is not responsive they must administer naloxone intranasally, apply magnet to the location of the pump in the upper buttock and call 911 to go to the ER [facility]. They expressed understanding. They reported that they have the pulse oxymeter, BP device and naloxone at their household. 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 She was in this office under works with chronic pain syndrome, chronic cervicalgia, cervical radiculopathy, occipital headache.? She was offered intrathecal drug delivery system pain pump trial to help her pain.? She was given psychological approval by the [facility] despite the previous history as above. [facility] Medical History (Updated 06/18/23 @ 08:40 by Britton Mariscal MD) CVA (cerebral vascular accident) Post-laminectomy syndrome Migraines Bipolar disorder Surgical History (Updated 05/11/23 @ 13:58 by Bre Virk RN) H/O total hysterectomy History of arthroscopic knee surgery History of tubal ligation Hx of neck surgery History of lumpectomy of left breast Family History Mother Breast CA Thyroid cancer Ovarian cancer Uterine cancer CHF (congestive heart failure) Paternal Grandmother Lung cancer Paternal Uncle Colon cancer Social History Alcohol intake: current Alcohol intake frequency: holidays/special occasions only Patient Tobacco Use Status: Current everyday Tobacco user Cigarettes Per Day: 10 Substance Use Type: Marijuana Review of Systems Const All systems reviewed & are unremarkable except as noted in HPI and below ENT Reports Normal hearing present Neuro Reports Normal hearing present, Denies Abnormal speech present and Denies confusion Psych Denies confusion Physical Exam Vital Signs: Last Vital Signs Pulse 91 06/22/23 08:38 Resp 14 06/22/23 08:38 BP 126/82 06/22/23 08:38 Pulse Ox 96 06/22/23 08:38 Oxygen Delivery Method Room Air 06/22/23 08:38 BMI result Body Mass Index 32.1 Const General: No confusion Orientation/consciousness: No confusion HEENT Head: Yes normocephalic and Yes atraumatic Ears: hearing grossly normal bilaterally Eyes General: appearance normal, both eyes and all related structures Eyelids: Yes eyelids normal Pupils: Equal, round and reactive pupils present EOM: EOMs intact bilaterally Neck Other: Significant posterior scars midline incision on the neck are detected. The the scar is a very well-healed Neck: Yes normal visual inspection and Yes no JVD Resp Effort & Inspection: normal respiratory effort, able to speak in complete sentences and no audible wheezes Cardio Jugular venous distension: no JVD Neuro General: No confusion Cranial nerves: Yes Equal, round and reactive pupils present and Yes Normal hearing present Cognition (Neuro): normal cognition Speech: No Abnormal speech present Psych Appearance: grossly normal Mental Status: mental status grossly normal Speech and movement: Normal speech and movement present Affect: normal affect Attitude: cooperative Thought process: Normal thought process present Thought content: Normal thought content present Insight: Good insight present (Psych) Judgement: Good judgement present (Psych) Assessment & Plan Assessment & Plan (1) Postlaminectomy syndrome, cervical: Code(s): M96.1 - Postlaminectomy syndrome, not elsewhere classified Plan: (2) Occipital neuralgia: Code(s): M54.81 - Occipital neuralgia (3) Muscle spasms of neck: Code(s): M62.838 - Other muscle spasm (4) Migraines: Code(s): G43.909 - Migraine, unspecified, not intractable, without status migrainosus (5) Cervical radiculitis: Code(s): M54.12 - Radiculopathy, cervical region Plan: The pump was read today and she has significant amount of medication in the pump. She is on 16 mcg of fentanyl a day and she reports absence of pain. She wants to go back to her Xanax. Moderate doses of Xanax with constant observation of pulse oximetry would be permitted for the patient . She has in her household pulse oximeter and blood pressure monitor. She also has naloxone and she has a magnet to arrest the pump. Next appointment in the beginning of July to change medication in her pump. I also will increase the concentration of the medication to 60 mcg of fentanyl per mL. (6) Bipolar disorder in full remission: Code(s): F31.70 - Bipolar disorder, currently in remission, most recent episode unspecified (7) Physical deconditioning: Code(s): R53.81 - Other malaise Plan The pump implant was performed 05/13/2023. Coding Level of Care Code Est Pt Level 3 (90671) Diagnoses Postlaminectomy syndrome, cervical M96.1 Occipital neuralgia M54.81 Muscle spasms of neck M62.838 Migraines G43.909 Cervical radiculitis M54.12 Bipolar disorder in full remission F31.70 Physical deconditioning R53.81
[2023-06-22 08:38] VITALS: BP 126/82; PULSE 91; RESP 14; O2SAT 96; BMI 32.1
== END 2023-06-22 08:50 | disposition home or self-care (01) ==
PROVIDERS: PCP Registered Nurse; Visit Provider Anesthesiology
DX: M96.1 Postlaminectomy syndrome, not elsewhere classified (principal); M54.81 Occipital neuralgia; M62.838 Other muscle spasm; G43.909 Migraine, unspecified, not intractable, without status migrainosus; M54.12 Radiculopathy, cervical region; F31.70 Bipolar disorder, currently in remission, most recent episode unspecified; R53.81 Other malaise
CPT/HCPCS: 99213

== ENCOUNTER → 2023-06-22 08:11 | Outpatient (BNVA) | payer MEDICAID, SELFPAY | PROVIDERS: PCP Registered Nurse; Visit Provider Anesthesiology | DX: M96.1 Postlaminectomy syndrome, not elsewhere classified (principal); M54.81 Occipital neuralgia; M62.838 Other muscle spasm; G43.909 Migraine, unspecified, not intractable, without status migrainosus; M54.12 Radiculopathy, cervical region; F31.70 Bipolar disorder, currently in remission, most recent episode unspecified; R53.81 Other malaise; Z79.899 Other long term (current) drug therapy; Z97.8 Presence of other specified devices | CPT/HCPCS: 99212 ==

== ENCOUNTER 2023-07-22 11:16 | Outpatient (AMB) | payer MEDICAID, SELFPAY ==
[2023-07-22 11:23] VITALS: PULSE 93; RESP 12; O2SAT 97; BMI 32.1
--- NOTE | 2023-07-22 11:23 | MHC.OFFVIS ---
Intake Vital Signs 07/22/23 11:23 Height 5 ft 1 in Weight 170 lb BMI 32.1 Blood Pressure Location Lt brachial Position Sitting Respiration 12 Pulse 93 Pulse Source Pulse Oximeter Pulse Oximetry (%) 97 Oxygen Delivery Method Room Air Intake Visit Reasons: ITDD REFILL/lvm Allergies amoxicillin [Amoxicillin] Allergy (Severe, Verified 07/22/23 11:30) Anaphylaxis bee pollen [BEE STINGS] Allergy (Severe, Verified 07/22/23 11:30) SWELLING erythromycin base [From E.E.S. 200] Allergy (Mild, Verified 07/22/23 11:30) HIVES ketorolac [From Toradol] Allergy (Mild, Verified 07/22/23 11:30) HIVES Penicillins Allergy (Mild, Verified 07/22/23 11:30) HIVES ibuprofen [IBUPROFEN] Allergy (Unknown, Verified 07/22/23 11:30) STOMACH UPSET-N/V acetaminophen [ACETAMINOPHEN] Adverse Reaction (Unknown, Verified 07/22/23 11:30) STOMACH UPSET-N/V HPI HPI Comments History of Present Illness Details Palma is in my office today to refill intrathecal pain pump. She receives 16 micro g a day of fentanyl now. She reports absence of pain!. She reports the conditioning. She wants to be more active. She wants me to schedule her for physical therapy for deconditioning. She also reports some muscular spasticity she asked me to start her on muscle relaxant. I offered her baclofen as the medicine least interfering with intrathecal fentanyl. She returned to her Xanax but she reports are her anxiety is being still severe. I recommended her just to wait and see how she is established with current intrathecal does and then would consider continuation of the therapy. Prior: She went for the trial of intrathecal drug delivery system cervical position which was performed on 01/27/2023. She reports 100% pain relief immediately after the trial. She reports today 10 days after the trial still absence of pain in the cervical spine absence of stiffness improved mobility of the cervical spine. She was implanted with ITDD with the tip of the catheter at bottom of C7 position and the catheter was filled with normal saline. Today she received as below the fentanyl into the pump. She stopped her benzodiazepines and she started hydroxyzine. She reports very good help of hydroxyzine for her anxiety and insomnia. Very detailed instructions were given to the patient about her pump, possible side effects and complications. The patient and her daughter who was with her during the visit. They will be using frequent pulse oxymetry frequently during the day time and contionuous pulse oxymetry during the night. Her daughter expressed to me that she and the of the patient will be taking turns at night and monitor the O2 sat numbers. They were explianed today that if the pulse oxymetry is in the lower 90 or higher 80 numbers they should count the patient's respiratory rate. If the numbers are below 88% and respiratory rate will be below 9 breaths a minute they should wake the patient using gentle but persistent stimulation such as shaking, sternal rub and pressure and voice. If the patient is not responsive they must administer naloxone intranasally, apply magnet to the location of the pump in the upper buttock and call 911 to go to the ER [facility]. They expressed understanding. They reported that they have the pulse oxymeter, BP device and naloxone at their household. 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 She was in this office under works with chronic pain syndrome, chronic cervicalgia, cervical radiculopathy, occipital headache.? She was offered intrathecal drug delivery system pain pump trial to help her pain.? She was given psychological approval by the [facility] despite the previous history as above. [facility] Medical History (Updated 06/18/23 @ 08:40 by Britton Mariscal MD) CVA (cerebral vascular accident) Post-laminectomy syndrome Migraines Bipolar disorder Surgical History (Updated 05/11/23 @ 13:58 by Bre Virk RN) H/O total hysterectomy History of arthroscopic knee surgery History of tubal ligation Hx of neck surgery History of lumpectomy of left breast Family History Mother Breast CA Thyroid cancer Ovarian cancer Uterine cancer CHF (congestive heart failure) Paternal Grandmother Lung cancer Paternal Uncle Colon cancer Social History Alcohol intake: current Alcohol intake frequency: holidays/special occasions only Patient Tobacco Use Status: Current everyday Tobacco user Cigarettes Per Day: 10 Substance Use Type: Marijuana Review of Systems Const All systems reviewed & are unremarkable except as noted in HPI and below ENT Reports Normal hearing present Neuro Reports Normal hearing present, Denies Abnormal speech present and Denies confusion Psych Denies confusion Physical Exam Vital Signs: Last Vital Signs Pulse 93 07/22/23 11:23 Resp 12 07/22/23 11:23 Pulse Ox 97 07/22/23 11:23 Oxygen Delivery Method Room Air 07/22/23 11:23 BMI result Body Mass Index 32.1 Const General: No confusion Orientation/consciousness: No confusion HEENT Head: Yes normocephalic and Yes atraumatic Ears: hearing grossly normal bilaterally Eyes General: appearance normal, both eyes and all related structures Eyelids: Yes eyelids normal Pupils: Equal, round and reactive pupils present EOM: EOMs intact bilaterally Neck Other: Significant posterior scars midline incision on the neck are detected. The the scar is a very well-healed Neck: Yes normal visual inspection and Yes no JVD Resp Effort & Inspection: normal respiratory effort, able to speak in complete sentences and no audible wheezes Cardio Jugular venous distension: no JVD Neuro General: No confusion Cranial nerves: Yes Equal, round and reactive pupils present and Yes Normal hearing present Cognition (Neuro): normal cognition Speech: No Abnormal speech present Psych Appearance: grossly normal Mental Status: mental status grossly normal Speech and movement: Normal speech and movement present Affect: normal affect Attitude: cooperative Thought process: Normal thought process present Thought content: Normal thought content present Insight: Good insight present (Psych) Judgement: Good judgement present (Psych) Assessment & Plan Assessment & Plan (1) Postlaminectomy syndrome, cervical: Code(s): M96.1 - Postlaminectomy syndrome, not elsewhere classified Plan: (2) Occipital neuralgia: Code(s): M54.81 - Occipital neuralgia (3) Muscle spasms of neck: Code(s): M62.838 - Other muscle spasm (4) Migraines: Code(s): G43.909 - Migraine, unspecified, not intractable, without status migrainosus (5) Cervical radiculitis: Code(s): M54.12 - Radiculopathy, cervical region Plan: I will schedule her for physical therapy. I will start her on baclofen. The pain pump refill is as below. Next pump refill is in the beginning of September. (6) Bipolar disorder in full remission: Code(s): F31.70 - Bipolar disorder, currently in remission, most recent episode unspecified (7) Physical deconditioning: Code(s): R53.81 - Other malaise Plan: Intrathecal pump refill. THE PATIENT CAME TODAY IN office FOR THE CHANGE OF THE MEDICATION IN her PAIN PUMP. The name and date of were verified and informed consent was obtained for the procedure. The pump was interrogated and the residual amount of fluid was found to be 3.7 mL. SHE WAS POSITIONED prone on the bed AND THE AREA OF THE INTRATHECAL PUMP WAS PREPPED WITH CHLORAPREP. The fenestrated drape was sterilely applied over the area of the pump. Sterile gloves were worn and of the aspiration system was assembled containing 2 in 22 gauge noncoring needle, the needle was connected to extension tubing which was connected to the 20 cc sterile syringe. The pain pump was palpated under the skin in the patient's right buttock area. The needle was inserted through the skin and the central plug of the pain pump and fluid was aspirated. The clear fluid was going into the syringe the total amount of the fluid was 3.4 mL .. After that a new batch? of medication was obtained which was containing Fentanyl in concentration 60 micro g/ml. The admixture was made in 20 cc syringe prepared by [facility] compounding pharmacy. The syringe was connected to the bacterial filter, and then connected to the extension tubing. After that the medication in the syringe was slowly instilled into the pump with aspirations at 15 and 5 cc hallman.? The pump was reprogrammed for the doses of Fentanyl 16 mcg per day. She reports excellent pain relieve on this regimen. Plan The pump implant was performed 05/13/2023. Medications: New baclofen 10 mg PO TID 90 tabs 6RF 30 days Discontinued methocarbamol Discontinued Reason: Doctor's Order 750 mg PO TID PRN 90 tabs 0RF pain (scale score 7-10) Coding Level of Care Code Est Pt Level 3 (10938) Procedure Only Diagnoses Postlaminectomy syndrome, cervical M96.1 Occipital neuralgia M54.81 Muscle spasms of neck M62.838 Migraines G43.909 Cervical radiculitis M54.12 Bipolar disorder in full remission F31.70 Physical deconditioning R53.81
== END 2023-07-22 11:47 | disposition home or self-care (01) ==
PROVIDERS: PCP Registered Nurse; Visit Provider Anesthesiology
DX: M96.1 Postlaminectomy syndrome, not elsewhere classified (principal); M54.81 Occipital neuralgia; M62.838 Other muscle spasm; Z45.1 Encounter for adjustment and management of infusion pump; G43.909 Migraine, unspecified, not intractable, without status migrainosus; M54.12 Radiculopathy, cervical region; F31.70 Bipolar disorder, currently in remission, most recent episode unspecified; R53.81 Other malaise
CPT/HCPCS: 62370

== ENCOUNTER → 2023-07-22 11:16 | Outpatient (BNVA) | payer MEDICAID, SELFPAY | PROVIDERS: PCP Registered Nurse; Visit Provider Anesthesiology | DX: M96.1 Postlaminectomy syndrome, not elsewhere classified (principal); M54.81 Occipital neuralgia; M62.838 Other muscle spasm; M54.12 Radiculopathy, cervical region; G43.909 Migraine, unspecified, not intractable, without status migrainosus; F31.70 Bipolar disorder, currently in remission, most recent episode unspecified; R53.81 Other malaise; Z96.89 Presence of other specified functional implants | CPT/HCPCS: 62370 ==

== ENCOUNTER 2023-07-29 11:57 | Outpatient (AMB) | payer MEDICAID, SELFPAY ==
--- NOTE | 2023-07-29 12:03 | MHC.OFFVIS ---
Intake Vital Signs 07/29/23 12:05 Height 5 ft 1 in Weight 170 lb BMI 32.1 BP 110/72 Intake Visit Reasons: New patient Annual referred by [facility] Intake Note: no concerns Pile Header Required: No Information Interpreted: non-clinical & clinical Sheet Metal Former: Sheet Metal Former Present (Addie Pugh ANGEL LUIS) Accompanied by: Spouse Allergies amoxicillin [Amoxicillin] Allergy (Severe, Verified 07/29/23 12:06) Anaphylaxis bee pollen [BEE STINGS] Allergy (Severe, Verified 07/29/23 12:06) SWELLING erythromycin base [From E.E.S. 200] Allergy (Mild, Verified 07/29/23 12:06) HIVES ketorolac [From Toradol] Allergy (Mild, Verified 07/29/23 12:06) HIVES Penicillins Allergy (Mild, Verified 07/29/23 12:06) HIVES ibuprofen [IBUPROFEN] Allergy (Unknown, Verified 07/29/23 12:06) STOMACH UPSET-N/V acetaminophen [ACETAMINOPHEN] Adverse Reaction (Unknown, Verified 07/29/23 12:06) STOMACH UPSET-N/V Is last menstrual period known: No (hysterectomy) HPI HPI Comments History of Present Illness Details Presenting for annual exam. No complaints. The patient has history of ovarian cyst Last Pap/HPV was many years ago, the patient is status post hysterectomy Last Mammogram was BI-RADS 2 in 01/06 Last screening colonoscopy was 3 years ago PFSH Medical History CVA (cerebral vascular accident) Post-laminectomy syndrome Migraines Bipolar disorder Surgical History H/O total hysterectomy History of arthroscopic knee surgery History of tubal ligation Hx of neck surgery History of lumpectomy of left breast Family History Mother Breast CA Thyroid cancer Ovarian cancer Uterine cancer CHF (congestive heart failure) Paternal Grandmother Lung cancer Paternal Uncle Colon cancer Social History Household Members: Spouse Housing: House Alcohol intake: current Alcohol intake frequency: holidays/special occasions only Patient Tobacco Use Status: Current everyday Tobacco user Cigarettes Per Day: 10 Years Smoked: 40 Substance Use Type: Marijuana Current occupational status: disabled Sexual orientation: Straight/Heterosexual Gender identity: Female Female Reproductive History Menstrual Total pregnancies: 10 Full term: 3 Number of Living Children: 2 Ab spontaneous: 7 Date of Mammogram: 01/05/23 Review of Systems Const All systems reviewed & are unremarkable except as noted in HPI and below Card Reports as per HPI and Reports no additional complaints Resp Reports as per HPI and Reports no additional complaints GI Reports as per HPI and Reports no additional complaints Reports as per HPI Physical Exam Vital Signs: BMI result Body Mass Index 32.1 Const General: cooperative, healthy appearing and comfortable General: Yes bladder normal to palpation External Female Exam: No lesion Speculum Exam - Vagina: normal appearance of the vagina, normal vaginal discharge and not erythematous Speculum Exam - Cervix: Cervix absent Bimanual exam- vagina & uterus: bladder normal to palpation and uterus absent Bimanual Exam- Adnexa, other: Other (No masses detected) Assessment & Plan Assessment & Plan (1) Well woman exam: Code(s): Z01.419 - Encounter for gynecological examination (general) (routine) without abnormal findings Plan: Cotesting not indicated at the patient is status post hysterectomy. Counseled the patient about the recommended dietary allowance of 1000 mg of Calcium & 600 IU of vitamin D. The patient was instructed to perform monthly self-breast exams and to schedule an annual exam in a year; All questions answered and the patient verbalized understanding. Instructed the patient to schedule annual exam in a year (2) History of ovarian cyst: Code(s): Z87.42 - Personal history of other diseases of the female genital tract Plan: Will order pelvic ultrasound. Instructions given the patient to schedule a 2 week ultrasound follow-up appointment. Orders: Orders US pelvic and transvaginal Today Z87.42 - Personal history of other diseases of the female genital tract Coding Level of Care Code New Pt Prev Care 40-64y(60811) Diagnoses Well woman exam Z01.419 History of ovarian cyst Z87.42
[2023-07-29 12:05] VITALS: BP 110/72; BMI 32.1
== END 2023-07-29 12:42 | disposition home or self-care (01) ==
PROVIDERS: Visit Provider Obstetrics & Gynecology
DX: Z01.419 Encounter for gynecological examination (general) (routine) without abnormal findings (principal); Z87.42 Personal history of other diseases of the female genital tract
CPT/HCPCS: 99386

== ENCOUNTER → 2023-07-29 11:57 | Outpatient (BNVA) | payer MEDICAID, SELFPAY | PROVIDERS: Visit Provider Obstetrics & Gynecology | DX: Z01.419 Encounter for gynecological examination (general) (routine) without abnormal findings (principal); Z87.42 Personal history of other diseases of the female genital tract | CPT/HCPCS: 99386 ==

== ENCOUNTER 2023-09-10 08:32 | Outpatient (AMB) | payer MEDICAID, SELFPAY ==
--- NOTE | 2023-09-10 08:36 | MHC.OFFVIS ---
Intake Vital Signs 09/10/23 08:45 Height 5 ft 1 in Weight 170 lb BMI 32.1 BP 128/86 Blood Pressure Location Rt brachial Position Sitting Respiration 16 Pulse 79 Pulse Source Pulse Oximeter Pulse Oximetry (%) 98 Oxygen Delivery Method Room Air Intake Visit Reasons: Problem with pain pump per Dr. Mariscal Intake Note: Patient comes in for concern about her pain pump. Reports pain 6-7/10. Allergies amoxicillin [Amoxicillin] Allergy (Severe, Verified 09/10/23 08:43) Anaphylaxis bee pollen [BEE STINGS] Allergy (Severe, Verified 09/10/23 08:43) SWELLING erythromycin base [From E.E.S. 200] Allergy (Mild, Verified 09/10/23 08:43) HIVES ketorolac [From Toradol] Allergy (Mild, Verified 09/10/23 08:43) HIVES Penicillins Allergy (Mild, Verified 09/10/23 08:43) HIVES ibuprofen [IBUPROFEN] Allergy (Unknown, Verified 09/10/23 08:43) STOMACH UPSET-N/V acetaminophen [ACETAMINOPHEN] Adverse Reaction (Unknown, Verified 09/10/23 08:43) STOMACH UPSET-N/V HPI HPI Comments History of Present Illness Details Palma is in my office today with complains on 3 manic episodes in the past 3 weeks. She is very concerned about her ability to receive her psychiatric medications with intrathecal pump. I told her that by now it is safe to take all the medications including benzodiazepines. However patient requested me to remove the pain pump. I explained to her that she is going to have severe withdrawals, her pain will be very severe as well, she will not be able to function normally cause of her cervical pain. However she insisted on removing the pain pump nevertheless. I will schedule her for removal under general anesthesia. I explained to her that the intrathecal catheter will stay behind tied on itself buried in the tissues. I also explained to her that she will have drainage device for couple of weeks or longer until the pump is removed. I today switch the pump to minimal rate. I will prescribe her clonidine 0.1 mg b.i.d. p.r.n. to help her with withdrawal symptoms. Her previous dose of fentanyl was 16 micro g a day. Her current right will be 0.372 micro g a day Prior: She went for the trial of intrathecal drug delivery system cervical position which was performed on 01/27/2023. She reports 100% pain relief immediately after the trial. She reports today 10 days after the trial still absence of pain in the cervical spine absence of stiffness improved mobility of the cervical spine. She was implanted with ITDD with the tip of the catheter at bottom of C7 position and the catheter was filled with normal saline. Today she received as below the fentanyl into the pump. She stopped her benzodiazepines and she started hydroxyzine. She reports very good help of hydroxyzine for her anxiety and insomnia. Very detailed instructions were given to the patient about her pump, possible side effects and complications. The patient and her daughter who was with her during the visit. They will be using frequent pulse oxymetry frequently during the day time and contionuous pulse oxymetry during the night. Her daughter expressed to me that she and the of the patient will be taking turns at night and monitor the O2 sat numbers. They were explianed today that if the pulse oxymetry is in the lower 90 or higher 80 numbers they should count the patient's respiratory rate. If the numbers are below 88% and respiratory rate will be below 9 breaths a minute they should wake the patient using gentle but persistent stimulation such as shaking, sternal rub and pressure and voice. If the patient is not responsive they must administer naloxone intranasally, apply magnet to the location of the pump in the upper buttock and call 911 to go to the ER [facility]. They expressed understanding. They reported that they have the pulse oxymeter, BP device and naloxone at their household. 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 She was in this office under works with chronic pain syndrome, chronic cervicalgia, cervical radiculopathy, occipital headache.? She was offered intrathecal drug delivery system pain pump trial to help her pain.? She was given psychological approval by the [facility] despite the previous history as above. [facility] Medical History CVA (cerebral vascular accident) Post-laminectomy syndrome Migraines Bipolar disorder Surgical History H/O total hysterectomy History of arthroscopic knee surgery History of tubal ligation Hx of neck surgery History of lumpectomy of left breast Family History Mother Breast CA Thyroid cancer Ovarian cancer Uterine cancer CHF (congestive heart failure) Paternal Grandmother Lung cancer Paternal Uncle Colon cancer Social History Household Members: Spouse Housing: House Alcohol intake: current Alcohol intake frequency: holidays/special occasions only Patient Tobacco Use Status: Current everyday Tobacco user Cigarettes Per Day: 10 Years Smoked: 40 Substance Use Type: Marijuana Current occupational status: disabled Sexual orientation: Straight/Heterosexual Gender identity: Female Review of Systems Const All systems reviewed & are unremarkable except as noted in HPI and below ENT Reports Normal hearing present Neuro Reports Normal hearing present, Denies Abnormal speech present and Denies confusion Psych Denies confusion Physical Exam Vital Signs: Last Vital Signs Pulse 79 09/10/23 08:45 Resp 16 09/10/23 08:45 BP 128/86 09/10/23 08:45 Pulse Ox 98 09/10/23 08:45 Oxygen Delivery Method Room Air 09/10/23 08:45 BMI result Body Mass Index 32.1 Const General: cooperative, healthy appearing and comfortable; No confusion Orientation/consciousness: No confusion HEENT Head: Yes normocephalic and Yes atraumatic Ears: hearing grossly normal bilaterally Eyes General: appearance normal, both eyes and all related structures Eyelids: Yes eyelids normal Pupils: Equal, round and reactive pupils present EOM: EOMs intact bilaterally Neck Other: Significant posterior scars midline incision on the neck are detected. The the scar is a very well-healed Neck: Yes normal visual inspection and Yes no JVD Resp Effort & Inspection: normal respiratory effort, able to speak in complete sentences and no audible wheezes Cardio Jugular venous distension: no JVD Neuro General: No confusion Cranial nerves: Yes Equal, round and reactive pupils present and Yes Normal hearing present Cognition (Neuro): normal cognition Speech: No Abnormal speech present Psych Appearance: grossly normal Mental Status: mental status grossly normal Speech and movement: Normal speech and movement present Affect: normal affect Attitude: cooperative Thought process: Normal thought process present Thought content: Normal thought content present Insight: Good insight present (Psych) Judgement: Good judgement present (Psych) Assessment & Plan Assessment & Plan (1) Postlaminectomy syndrome, cervical: Code(s): M96.1 - Postlaminectomy syndrome, not elsewhere classified Plan: (2) Occipital neuralgia: Code(s): M54.81 - Occipital neuralgia (3) Muscle spasms of neck: Code(s): M62.838 - Other muscle spasm (4) Migraines: Code(s): G43.909 - Migraine, unspecified, not intractable, without status migrainosus (5) Cervical radiculitis: Code(s): M54.12 - Radiculopathy, cervical region Plan: Intrathecal pump was interrogated and placed on minimal rate. (6) Bipolar disorder in full remission: Code(s): F31.70 - Bipolar disorder, currently in remission, most recent episode unspecified (7) Physical deconditioning: Code(s): R53.81 - Other malaise Plan: I will schedule her for explantation of intrathecal pain pump. The procedure will be done under general anesthesia. To help her with withdrawal symptoms I will start her on clonidine 0.1 mg (8) Implantable intrathecal infusion pump present: Code(s): Z96.89 - Presence of other specified functional implants Plan The pump implant was performed 05/13/2023. Medications: New clonidine HCl Take only if heart rate and blood pressure is elevated as a response to withdrawal from opioid medications. Do not take if heart rate and blood pressure is normal. 0.1 mg PO BID 20 days PRN 40 tabs 1RF withdrawal symptoms Coding Level of Care Code Est Pt Level 3 (65054) Procedure Only Diagnoses Postlaminectomy syndrome, cervical M96.1 Occipital neuralgia M54.81 Muscle spasms of neck M62.838 Migraines G43.909 Cervical radiculitis M54.12 Bipolar disorder in full remission F31.70 Physical deconditioning R53.81 Implantable intrathecal infusion pump present Z96.89
[2023-09-10 08:45] VITALS: BP 128/86; PULSE 79; RESP 16; O2SAT 98; BMI 32.1
== END 2023-09-10 08:53 | disposition home or self-care (01) ==
PROVIDERS: PCP Internal Medicine; Visit Provider Anesthesiology
DX: M96.1 Postlaminectomy syndrome, not elsewhere classified (principal); M54.81 Occipital neuralgia; M62.838 Other muscle spasm; G43.909 Migraine, unspecified, not intractable, without status migrainosus; M54.12 Radiculopathy, cervical region; F31.70 Bipolar disorder, currently in remission, most recent episode unspecified; R53.81 Other malaise; Z96.89 Presence of other specified functional implants
CPT/HCPCS: 99213

== ENCOUNTER → 2023-09-10 08:32 | Outpatient (BNVA) | payer MEDICAID, SELFPAY | PROVIDERS: PCP Internal Medicine; Visit Provider Anesthesiology | DX: M96.1 Postlaminectomy syndrome, not elsewhere classified (principal); M54.81 Occipital neuralgia; M62.838 Other muscle spasm; M54.12 Radiculopathy, cervical region; G43.909 Migraine, unspecified, not intractable, without status migrainosus; F31.70 Bipolar disorder, currently in remission, most recent episode unspecified; R53.81 Other malaise; Z96.89 Presence of other specified functional implants | CPT/HCPCS: 99212 ==

== ENCOUNTER 2023-09-18 09:15 | Day surgery (SDC) | payer MEDICAID, SELFPAY ==
--- NOTE | 2023-09-17 12:08 | HO.ANESPROP2 ---
Documented by User: Cindy Jacobson NP 09/17/23 12:11 HPI - Anesthesia Eval Consult details Narrative: 48yo F for Removal Intrathecal Drug Delivery Implant s/p implant 04/2023 with GA-ETT 7 PMFSH Active Problems Active Problems: All Active Problems (Updated 09/10/23 @ 09:10 by Britton Mariscal MD) Implantable intrathecal infusion pump present (Acute) History of ovarian cyst (Acute) Well woman exam (Acute) Physical deconditioning (Acute) Bipolar disorder in full remission (Acute) Occipital neuralgia (Acute) Cervical radiculitis (Acute) Migraines (Acute) Muscle spasms of neck (Acute) Postlaminectomy syndrome, cervical (Acute) Past Medical History Medical History CVA (cerebral vascular accident) Post-laminectomy syndrome Migraines Bipolar disorder Family History Family History Mother Breast CA Thyroid cancer Ovarian cancer Uterine cancer CHF (congestive heart failure) Paternal Grandmother Lung cancer Paternal Uncle Colon cancer Family history of problems with anesthesia: No Surgical History Surgical History H/O total hysterectomy History of arthroscopic knee surgery History of tubal ligation Hx of neck surgery History of lumpectomy of left breast History of Problems with Anesthesia: No Social History Social History Household Members: Spouse Housing: House Alcohol intake: current Alcohol intake frequency: does not drink Patient Tobacco Use Status: Current everyday Tobacco user Tobacco use type: Cigarette Cigarettes Per Day: 10 Years Smoked: 40 Second Hand Smoke Exposure: No Use of substances other than those prescribed or required for medical reasons: Yes Substance Use Type: Marijuana Are you DNR?: No Advance Directives: No Advance Directives Information Provided: Yes Advance Directives on File: No Current occupational status: disabled Sexual orientation: Straight/Heterosexual Gender identity: Female Meds Allergies Allergy/AdvReac Type Severity Reaction Status Date / Time amoxicillin [Amoxicillin] Allergy Severe Anaphylaxis Verified 09/10/23 08:43 bee pollen [BEE STINGS] Allergy Severe SWELLING Verified 09/10/23 08:43 erythromycin base Allergy Mild HIVES Verified 09/10/23 08:43 [From E.E.S. 200] ketorolac [From Toradol] Allergy Mild HIVES Verified 09/10/23 08:43 Penicillins Allergy Mild HIVES Verified 09/10/23 08:43 ibuprofen [IBUPROFEN] Allergy Unknown STOMACH Verified 09/10/23 08:43 UPSET-N/V acetaminophen [ACETAMINOPHEN] AdvReac Unknown STOMACH Verified 09/10/23 08:43 UPSET-N/V Home Medications Medication Instructions Recorded Confirmed Last Taken Type guanfacine 1 mg tablet 1 mg PO QAM 03/05/22 09/18/23 Unknown History ondansetron 4 mg disintegrating 4 mg PO Q8H PRN Nausea 03/05/22 09/18/23 Unknown History tablet propranolol 20 mg tablet 20 mg PO BID 03/05/22 09/18/23 09/18/23 History dicyclomine 20 mg tablet 20 mg PO QID PRN cramps 06/06/22 09/18/23 Unknown History linaclotide 290 mcg capsule 290 mcg PO DAILY 06/06/22 09/18/23 Unknown History (Linzess) omeprazole 40 mg capsule,delayed 40 mg PO DAILY 06/06/22 09/18/23 Unknown History release albuterol 90 mcg/actuation aerosol 90 mcg inhalation Q4H PRN 06/09/22 09/18/23 Unknown History inhaler Shortness Of Breath methylphenidate HCl 10 mg tablet 20 mg PO BID 12/03/22 09/18/23 Unknown History quetiapine 300 mg tablet,extended 400 mg PO QPM 12/03/22 09/18/23 Unknown History release 24 hr alprazolam 1 mg tablet 1 mg PO TID PRN severe pain 06/03/23 09/18/23 Unknown History gabapentin 400 mg capsule 400 mg PO TID 06/03/23 09/18/23 Unknown History Xanax 0.05 mg PO PRN Panic Attack(S) 09/18/23 09/18/23 History Assessment and Plan Assessment Anesthesia Assessment: Chart Reviewed Final Anesthetic Review Family History of Problems with Anesthesia: No History of Problems with Anesthesia: No Documented by User: Nisha Simmons MD 09/18/23 10:38 PMFSH Active Problems Active Problems: All Active Problems (Updated 09/18/23 @ 10:04 by Nisha Simmons MD) Implantable intrathecal infusion pump present (Acute) 05/13/23 History of ovarian cyst (Acute) Well woman exam (Acute) Physical deconditioning (Acute) Bipolar disorder in full remission (Acute) Occipital neuralgia (Acute) Cervical radiculitis (Acute) Migraines (Acute) Muscle spasms of neck (Acute) Postlaminectomy syndrome, cervical (Acute) Smoker Past Medical History Medical History CVA (cerebral vascular accident) Post-laminectomy syndrome Migraines Bipolar disorder Family History Family History Mother Breast CA Thyroid cancer Ovarian cancer Uterine cancer CHF (congestive heart failure) Paternal Grandmother Lung cancer Paternal Uncle Colon cancer Family history of problems with anesthesia: No Surgical History Surgical History H/O total hysterectomy History of arthroscopic knee surgery History of tubal ligation Hx of neck surgery History of lumpectomy of left breast History of Problems with Anesthesia: No Social History Social History Household Members: Spouse Housing: House Alcohol intake: current Alcohol intake frequency: does not drink Patient Tobacco Use Status: Current everyday Tobacco user Tobacco use type: Cigarette Cigarettes Per Day: 10 Years Smoked: 40 Second Hand Smoke Exposure: No Use of substances other than those prescribed or required for medical reasons: Yes Substance Use Type: Marijuana Are you DNR?: No Advance Directives: No Advance Directives Information Provided: Yes Advance Directives on File: No Current occupational status: disabled Sexual orientation: Straight/Heterosexual Gender identity: Female Meds Allergies Allergy/AdvReac Type Severity Reaction Status Date / Time amoxicillin [Amoxicillin] Allergy Severe Anaphylaxis Verified 09/10/23 08:43 bee pollen [BEE STINGS] Allergy Severe SWELLING Verified 09/10/23 08:43 erythromycin base Allergy Mild HIVES Verified 09/10/23 08:43 [From E.E.S. 200] ketorolac [From Toradol] Allergy Mild HIVES Verified 09/10/23 08:43 Penicillins Allergy Mild HIVES Verified 09/10/23 08:43 ibuprofen [IBUPROFEN] Allergy Unknown STOMACH Verified 09/10/23 08:43 UPSET-N/V acetaminophen [ACETAMINOPHEN] AdvReac Unknown STOMACH Verified 09/10/23 08:43 UPSET-N/V Home Medications Medication Instructions Recorded Confirmed Last Taken Type guanfacine 1 mg tablet 1 mg PO QAM 03/05/22 09/18/23 Unknown History ondansetron 4 mg disintegrating 4 mg PO Q8H PRN Nausea 03/05/22 09/18/23 Unknown History tablet propranolol 20 mg tablet 20 mg PO BID 03/05/22 09/18/23 09/18/23 History dicyclomine 20 mg tablet 20 mg PO QID PRN cramps 06/06/22 09/18/23 Unknown History linaclotide 290 mcg capsule 290 mcg PO DAILY 06/06/22 09/18/23 Unknown History (Linzess) omeprazole 40 mg capsule,delayed 40 mg PO DAILY 06/06/22 09/18/23 Unknown History release albuterol 90 mcg/actuation aerosol 90 mcg inhalation Q4H PRN 06/09/22 09/18/23 Unknown History inhaler Shortness Of Breath methylphenidate HCl 10 mg tablet 20 mg PO BID 12/03/22 09/18/23 Unknown History quetiapine 300 mg tablet,extended 400 mg PO QPM 12/03/22 09/18/23 Unknown History release 24 hr alprazolam 1 mg tablet 1 mg PO TID PRN severe pain 06/03/23 09/18/23 Unknown History gabapentin 400 mg capsule 400 mg PO TID 06/03/23 09/18/23 Unknown History Xanax 0.05 mg PO PRN Panic Attack(S) 09/18/23 09/18/23 History Exam Height,Weight and Vital Signs: Height 5 ft 1 in Weight 78.471 kg Vital Signs Temp Pulse Resp BP Pulse Ox O2 Del Method 09/18/23 09:56 97.5 F 79 16 117/70 96 Room Air Airway Mallampati Class: II TM Dist: >3cm Neck ROM: Full Loose/Missing/Broken Teeth: Yes (Edentulous) Heart: RRR Lungs: CTAB Assessment and Plan Assessment Anesthesia Assessment: Anesthesia Plan Discussed and Chart Reviewed Final Anesthetic Review Family History of Problems with Anesthesia: No History of Problems with Anesthesia: No NPO: Yes ASA Class: III Final Preanesthetic Review: No Changes in Pt Med Stat, Meds/Allgs Chart Reviewed, Consent Obtained/Reviewed and Anes Risks/Benef Reviewed Patient Risk: Intermediate Procedure Risk: Low Assessment/Block/Sedation in SS: Assess/Block/Sedation-SS Anesthetic Plan Anesthetic Plan: GA Disposition: Standard PACU
[2023-09-18] VITALS (15 sets, daily range): BP systolic 108–129; BP diastolic 49–81; PULSE 67–79; RESP 14–20; TEMP 36.1–36.4; O2SAT 95–100; BMI 32.7
[2023-09-18] MEDS: Lactated Ringers 1,000 ML 100 ML IVCONT (09:57)
--- NOTE | 2023-09-18 10:38 | P.HPSUR_ITS ---
Pre-Procedural Eval Section A - 24 Hr Update-Section A only Date of Service: 09/18/23 The patient is an INPATIENT: No Changes since office visit: Yes Patient answered all questions The patient has been examined within 24 hours of the surgical procedure. The History & Physical has been completed within 30 days and I have reviewed it.: No Section B - Complete if H&P > 30 days Chief Complaint: Presence of other specified functional implants Details of Present Illness: As above, as well as patient's desire to remove the implant. Relevant Family History (Specify if Yes): No Relevant Social History: None Present Medications: see Short Stay Collaborative assessment Medical History: No relevant PMH History of Previous Operations: No relevant previous surgery Allergies: Allergies Allergy/AdvReac Type Severity Reaction Status Date / Time amoxicillin [Amoxicillin] Allergy Severe Anaphylaxis Verified 09/10/23 08:43 bee pollen [BEE STINGS] Allergy Severe SWELLING Verified 09/10/23 08:43 erythromycin base Allergy Mild HIVES Verified 09/10/23 08:43 [From E.E.S. 200] ketorolac [From Toradol] Allergy Mild HIVES Verified 09/10/23 08:43 Penicillins Allergy Mild HIVES Verified 09/10/23 08:43 ibuprofen [IBUPROFEN] Allergy Unknown STOMACH Verified 09/10/23 08:43 UPSET-N/V acetaminophen [ACETAMINOPHEN] AdvReac Unknown STOMACH Verified 09/10/23 08:43 UPSET-N/V Review of Systems Sugical H&P ROS: Negative: Constitution, Cardiovascular, Respiratory, Neurological, Psychiatric, Hem-Onc, Allergic/Immunologic, Gastrointestinal, Genitourinary, Musculoskeletal, Integumentary, Endocrine and Eyes/Ears/Nose/Throat Exam Surgical H&P Exam: Normal: HEENT, Normal: Heart, Normal: Lungs, Normal: Ext remities, Normal: Abdomen, Normal: Skin and Normal: Neurological Plan Diagnosis/Plan: Unchanged I have reviewed the history and physical and performed a pertinent physical examination on my patient. No changes have occurred unless specified. Time Spent With Patient Time: Total time managing care of this patient today ___5_ minutes.
--- NOTE | 2023-09-18 12:45 | PM.OP ---
Brief Operative Note Date of Service: 09/18/23 Pre-op diagnosis: Cervicalgia postlaminectomy syndrome cervical spine presence on functioning intrathecal drug delivery system pain pump. Patient's desire to remove the pain pump. Post-op diagnosis: same Procedure: Explantation of intrathecal drug delivery system pain pump [employer]. Surgeon: Britton Mariscal MD Anesthesia: GETA Was an Sh[employer]ender used for this Procedure?: No Estimated blood loss (mL): 16 Pathology: none sent Condition: stable Disposition: PACU
--- NOTE | 2023-09-18 12:47 | P.OP_ITS ---
Operative Note Operative Note Date of Service: 09/18/23 Narrative: Removal of the spinal cord stimulator. Palma is 48 y.o. female who came today to the operating room today to have her intrathecal pain pump to be removed. The pump was implanted in 05/2023 for the treatment of the cervical postlaminectomy syndrome after the [facility] psychologist approved her for the procedure. She went for the trial of the ITDD with fentanul and she reported 100% pain relive on the trial for a prolonged period of time. After the implantation of the pain pump she continued to experience excellent pain relive with the dose of fentanyl 14 mcg a day reporting absence of pain. She is under care of the [facility] [employer] psychiatry for bipolar disorder and some of her medications were adjusted after the implant including benzodiazepines albeit temporarily until she is stable on the ITDD treatment . However the patient developed 3 manic episodes and requested me to remove the pump. I explained her that the problem is most likely poorly adjusted bipolar meds and the intrathecal pain pump has nothing to do with exacerbation of her bipolar disorder, however the patient insisted on the removal of the pain pump despite of my all assertions that the pain pump can not exacerbate her condition. The patient insisted on removing the pain pump as soon as possible. She sided that she does not want to be in manic state when her daughter delivers a grandchild for her. Therefore I schedule her for today for removal of the intrathecal pain pump. Again informed consent was thoroughly explained to the patient. The needs to leave intrathecal catheter behind was several times e xplained to the patient. The patient expressed understanding. Today she came to the operating room , She was taken to the operating room where she was positioned supine on the stretcher.? [employer] [employer] monitors were applied and general anesthesia was induced with following endotracheal intubation.? After that that the patient was transferred prone to the operating table.? All pressure points were protected. Time-out was performed delineating correct site and side of the procedure name and date of of the patient, risk of fire needs for antibiotics, allergies of the patient, needs for DVT prophylaxis.? DVT prophylaxis was applied in form of compression devices and patient received clindamycin 900 mg intravenously 20 minutes before onset of the procedure.? Her lower back and upper buttocks were prepped with ChloraPrep twice.? Laparoscopic drape was applied to the area of surgery with the help of the self adhesives sterile towels.? 10 blade scalpel was used to make an incision in the projection of previously implanted intrathecal pain pump The incision was 7 cm long.? The edges of the wound were widened using dull dissection and sharp dissection until the anchoring devices were visualized in the bottom of the wound.? Anchoring sutures were severed and with gentle drag the intrathecal pump was delivered to the level of the skin.? Intrathecal catheter was dissected from surrounding adhesions and severed from social as connection device. Intrathecal pump was removed from the operating field. After that the intrathecal catheter was tied on itself and also clipped with metal surgical vascular clips, it was wrapped in the coil the incision was made in the posterior wall of the pocket of the pump. The hemostasis was performed and the intrathecal catheter was hidden in the formed wound, after that the uninterrupted Tycron 0-0 suture was applied. The wound was closed her medically. After that the wound was irrigated with vancomycin containing normal saline, thorough hemostasis was obtained, Prudencio-Triana draining device was used to perforate the most inferior and lateral corner of the wound to the level of the skin. The Prudencio-Triana was trimmed appropriately and the suture was applied to the skin to hold the Prudencio-Triana drain line. The suctioning bulb was connected to the distal part of the Prudencio-Triana line. The wounds were in filtrated with 15 mL of Exparel/liposomal bupivacaine medication. After that the wound was closed with 0 -0 Polysorb suture, 2-0 Polysorb suture was used to approximate the level of the skin, the skin glue was applied to the suture line. Upon completion of the procedure the patient was transferred supine on the stretcher, awakened, extubated, transferred stable to PACU.
[2023-09-18] MEDS: fentaNYL citrate/PF 100 MCG/2 ML VIAL 25 MCG IVPUSH ×3 (13:30→13:43)
[2023-09-18] MEDS: oxyCODONE HCl Immed Release 5 MG TABLET PO (13:30)
== END 2023-09-18 14:29 | disposition home or self-care (01) ==
PROVIDERS: PCP Internal Medicine; Visit Provider Anesthesiology
PROC: (CPT 62362; principal; 2023-09-18 10:50)
DX: Z45.1 Encounter for adjustment and management of infusion pump (principal); Z96.89 Presence of other specified functional implants; F30.9 Manic episode, unspecified; F31.70 Bipolar disorder, currently in remission, most recent episode unspecified; M96.1 Postlaminectomy syndrome, not elsewhere classified; M54.81 Occipital neuralgia; F13.20 Sedative, hypnotic or anxiolytic dependence, uncomplicated; G43.909 Migraine, unspecified, not intractable, without status migrainosus; Z86.73 Personal history of transient ischemic attack (TIA), and cerebral infarction without residual deficits; F17.210 Nicotine dependence, cigarettes, uncomplicated; F12.90 Cannabis use, unspecified, uncomplicated
CPT/HCPCS: 62362; C9290; J0736; J2250; J2704; J2795; J3010; J3370

== ENCOUNTER → 2023-09-18 09:15 | Outpatient (BNV) | payer MEDICAID, SELFPAY | PROVIDERS: PCP Internal Medicine; Visit Provider Anesthesiology | DX: Z96.89 Presence of other specified functional implants (principal) | CPT/HCPCS: 62365 ==

== ENCOUNTER 2023-09-24 11:26 | Outpatient (AMB) | payer MEDICAID, SELFPAY ==
--- NOTE | 2023-09-24 11:28 | A.OFFVIS_ITS ---
Intake Vital Signs 09/24/23 11:32 Height 5 ft 1 in Weight 173 lb BMI 32.7 BP 106/66 Blood Pressure Location Lt brachial Position Sitting Respiration 14 Pulse 86 Pulse Source Pulse Oximeter Pulse Oximetry (%) 98 Oxygen Delivery Method Room Air Intake Visit Reasons: S/p ITDD Removal 09/18/23/lvm Intake Note: Patient comes in for post-op appointment. Reports pain 09/26. Allergies amoxicillin [Amoxicillin] Allergy (Severe, Verified 09/24/23 11:31) Anaphylaxis bee pollen [BEE STINGS] Allergy (Severe, Verified 09/24/23 11:31) SWELLING erythromycin base [From E.E.S. 200] Allergy (Mild, Verified 09/24/23 11:31) HIVES ketorolac [From Toradol] Allergy (Mild, Verified 09/24/23 11:31) HIVES Penicillins Allergy (Mild, Verified 09/24/23 11:31) HIVES ibuprofen [IBUPROFEN] Allergy (Unknown, Verified 09/24/23 11:31) STOMACH UPSET-N/V acetaminophen [ACETAMINOPHEN] Adverse Reaction (Unknown, Verified 09/24/23 11:31) STOMACH UPSET-N/V HPI HPI Comments History of Present Illness Details Palma is in my office today for the examination of the draining system of the removed intrathecal pain pump. The fluid in the draining DAMIEN bulb is straw-colored and yellow, the amount since last night is no more than 3 mL. Instructions were given to the patient on how to drain DAMIEN bulb and how to maintain sterility of the system. The dressing will be changed next the system will be removed next . Prior: Patient came with complains on 3 manic episodes in the past 3 weeks. She is very concerned about her ability to receive her psychiatric medications with intrathecal pump. I told her that by now it is safe to take all the medications including benzodiazepines. However patient requested me to remove the pain pump. I explained to her that she is going to have severe withdrawals, her pain will be very severe as well, she will not be able to function normally cause of her cervical pain. However she insisted on removing the pain pump nevertheless. I will schedule her for removal under general anesthesia. I explained to her that the intrathecal catheter will stay behind tied on itself buried in the tissues. I also explained to her that she will have drainage device for couple of weeks or longer until the pump is removed. I today switch the pump to minimal rate. I will prescribe her clonidine 0.1 mg b.i.d. p.r.n. to help her with withdrawal symptoms. Her previous dose of fentanyl was 16 micro g a day. Her current right will be 0.372 micro g a day Prior: She went for the trial of intrathecal drug delivery system cervical position which was performed on 01/27/2023. She reports 100% pain relief immediately after the trial. She reports today 10 days after the trial still absence of pain in the cervical spine absence of stiffness improved mobility of the cervical spine. She was implanted with ITDD with the tip of the catheter at bottom of C7 position and the catheter was filled with normal saline. Today she received as below the fentanyl into the pump. She stopped her benzodiazepines and she started hydroxyzine. She reports very good help of hydroxyzine for her anxiety and insomnia. Very detailed instructions were given to the patient about her pump, possible side effects and complications. The patient and her daughter who was with her during the visit. They will be using frequent pulse oxymetry frequently during the day time and contionuous pulse oxymetry during the night. Her daughter expressed to me that she and the of the patient will be taking turns at night and monitor the O2 sat numbers. They were explianed today that if the pulse oxymetry is in the lower 90 or higher 80 numbers they should count the patient's respiratory rate. If the numbers are below 88% and respiratory rate will be below 9 breaths a minute they should wake the patient using gentle but persistent stimulation such as shaking, sternal rub and pressure and voice. If the patient is not responsive they must administer naloxone intranasally, apply magnet to the location of the pump in the upper buttock and call 911 to go to the ER [facility]. They expressed understanding. They reported that they have the pulse oxymeter, BP device and naloxone at their household. 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 She was in this office under works with chronic pain syndrome, chronic cervicalgia, cervical radiculopathy, occipital headache.? She was offered intrathecal drug delivery system pain pump trial to help her pain.? She was given psychological approval by the [facility] despite the previous history as above. [facility] Medical History CVA (cerebral vascular accident) Post-laminectomy syndrome Migraines Bipolar disorder Surgical History H/O total hysterectomy History of arthroscopic knee surgery History of tubal ligation Hx of neck surgery History of lumpectomy of left breast Family History Mother Breast CA Thyroid cancer Ovarian cancer Uterine cancer CHF (congestive heart failure) Paternal Grandmother Lung cancer Paternal Uncle Colon cancer Social History Household Members: Spouse Housing: House Alcohol intake: current Alcohol intake frequency: does not drink Patient Tobacco Use Status: Current everyday Tobacco user Tobacco use type: Cigarette Cigarettes Per Day: 10 Years Smoked: 40 Second Hand Smoke Exposure: No Substance Use Type: Marijuana Current occupational status: disabled Sexual orientation: Straight/Heterosexual Gender identity: Female Review of Systems Const All systems reviewed & are unremarkable except as noted in HPI and below ENT Reports Normal hearing present Neuro Reports Normal hearing present, Denies Abnormal speech present and Denies confusion Psych Denies confusion Physical Exam Vital Signs: Last Vital Signs Pulse 86 09/24/23 11:32 Resp 14 09/24/23 11:32 BP 106/66 09/24/23 11:32 Pulse Ox 98 09/24/23 11:32 Oxygen Delivery Method Room Air 09/24/23 11:32 BMI result Body Mass Index 32.7 Const General: cooperative, healthy appearing and comfortable; No confusion Orientation/consciousness: No confusion HEENT Head: Yes normocephalic and Yes atraumatic Ears: hearing grossly normal bilaterally Eyes General: appearance normal, both eyes and all related structures Eyelids: Yes eyelids normal Pupils: Equal, round and reactive pupils present EOM: EOMs intact bilaterally Neck Other: Significant posterior scars midline incision on the neck are detected. The the scar is a very well-healed Neck: Yes normal visual inspection and Yes no JVD Resp Effort & Inspection: normal respiratory effort, able to speak in complete sentences and no audible wheezes Cardio Jugular venous distension: no JVD Neuro General: No confusion Cranial nerves: Yes Equal, round and reactive pupils present and Yes Normal hearing present Cognition (Neuro): normal cognition Speech: No Abnormal speech present Psych Appearance: grossly normal Mental Status: mental status grossly normal Speech and movement: Normal speech and movement present Affect: normal affect Attitude: cooperative Thought process: Normal thought process present Thought content: Normal thought content present Insight: Good insight present (Psych) Judgement: Good judgement present (Psych) Assessment & Plan Assessment & Plan (1) Postlaminectomy syndrome, cervical: Code(s): M96.1 - Postlaminectomy syndrome, not elsewhere classified Plan: (2) Occipital neuralgia: Code(s): M54.81 - Occipital neuralgia (3) Muscle spasms of neck: Code(s): M62.838 - Other muscle spasm (4) Migraines: Code(s): G43.909 - Migraine, unspecified, not intractable, without status migrainosus (5) Cervical radiculitis: Code(s): M54.12 - Radiculopathy, cervical region Plan: Intrathecal pump was interrogated and placed on minimal rate. (6) Bipolar disorder in full remission: Code(s): F31.70 - Bipolar disorder, currently in remission, most recent episode unspecified (7) Physical deconditioning: Code(s): R53.81 - Other malaise Plan: She no longer is on intrathecal pump, it was explanted. Next week I will remove DAMIEN drain. After that I no longer will be able to help this patient for her cervicalgia neck pain. (8) Implantable intrathecal infusion pump present: Code(s): Z96.89 - Presence of other specified functional implants Plan The pump implant was performed 05/13/2023. Coding Level of Care Code Est Pt Level 3 (12206) Diagnoses Postlaminectomy syndrome, cervical M96.1 Occipital neuralgia M54.81 Muscle spasms of neck M62.838 Migraines G43.909 Cervical radiculitis M54.12 Bipolar disorder in full remission F31.70 Physical deconditioning R53.81 Implantable intrathecal infusion pump present Z96.89
[2023-09-24 11:32] VITALS: BP 106/66; PULSE 86; RESP 14; O2SAT 98; BMI 32.7
== END 2023-09-24 11:45 | disposition home or self-care (01) ==
PROVIDERS: PCP Registered Nurse; Visit Provider Anesthesiology
DX: M96.1 Postlaminectomy syndrome, not elsewhere classified (principal); M54.81 Occipital neuralgia; M62.838 Other muscle spasm; G43.909 Migraine, unspecified, not intractable, without status migrainosus; M54.12 Radiculopathy, cervical region; F31.70 Bipolar disorder, currently in remission, most recent episode unspecified; R53.81 Other malaise; Z96.89 Presence of other specified functional implants
CPT/HCPCS: 99024

== ENCOUNTER → 2023-09-24 11:26 | Outpatient (BNVA) | payer MEDICAID, SELFPAY | PROVIDERS: PCP Registered Nurse; Visit Provider Anesthesiology ==

== ENCOUNTER 2023-10-01 10:57 | Outpatient (AMB) | payer MEDICAID, SELFPAY ==
--- NOTE | 2023-10-01 11:05 | MHC.OFFVIS ---
Intake Vital Signs 10/01/23 11:22 Height 5 ft 1 in Weight 168 lb BMI 31.7 BP 138/87 Blood Pressure Location Lt brachial Position Sitting Respiration 20 Pulse 98 Pulse Source Pulse Oximeter Pulse Oximetry (%) 97 Oxygen Delivery Method Room Air Intake Visit Reasons: Removal of drain tube/confirmed Allergies amoxicillin [Amoxicillin] Allergy (Severe, Verified 10/01/23 11:23) Anaphylaxis bee pollen [BEE STINGS] Allergy (Severe, Verified 10/01/23 11:23) SWELLING erythromycin base [From E.E.S. 200] Allergy (Mild, Verified 10/01/23 11:23) HIVES ketorolac [From Toradol] Allergy (Mild, Verified 10/01/23 11:23) HIVES Penicillins Allergy (Mild, Verified 10/01/23 11:23) HIVES ibuprofen [IBUPROFEN] Allergy (Unknown, Verified 10/01/23 11:23) STOMACH UPSET-N/V acetaminophen [ACETAMINOPHEN] Adverse Reaction (Unknown, Verified 10/01/23 11:23) STOMACH UPSET-N/V HPI HPI Comments History of Present Illness Details Palma is in my office today for the examination of the draining system of the removed intrathecal pain pump. The fluid in the draining DAMIEN bulb is slightly murky and yellow, the amount since last night is no more than 3 mL. She reported today that she noticed this morning that DAMIEN bulb got perforated and unable to stay collapsed. Perforation of the DAMIEN drain could lead to spread of the infection. It is not clear how long her DAMIEN bulb was left perforated. I severed today the nylon suture which she was attaching the DAMIEN drain to the skin and the remove the DAMIEN drain. The bacitracin ointment dressing was applied to the site of the DAMIEN drain exit. I explained to the patient that she would need to watch for signs of the infection such as redness, local heat, tenderness on palpation, local swelling. If this will not be observed no new appointment is necessary. If the infection will occur I would be obligated to drain it. Prior: Patient came with complains on 3 manic episodes in the past 3 weeks. She is very concerned about her ability to receive her psychiatric medications with intrathecal pump. I told her that by now it is safe to take all the medications including benzodiazepines. However patient requested me to remove the pain pump. I explained to her that she is going to have severe withdrawals, her pain will be very severe as well, she will not be able to function normally cause of her cervical pain. However she insisted on removing the pain pump nevertheless. I will schedule her for removal under general anesthesia. I explained to her that the intrathecal catheter will stay behind tied on itself buried in the tissues. I also explained to her that she will have drainage device for couple of weeks or longer until the pump is removed. I today switch the pump to minimal rate. I will prescribe her clonidine 0.1 mg b.i.d. p.r.n. to help her with withdrawal symptoms. Her previous dose of fentanyl was 16 micro g a day. Her current right will be 0.372 micro g a day Prior: She went for the trial of intrathecal drug delivery system cervical position which was performed on 01/27/2023. She reports 100% pain relief immediately after the trial. She reports today 10 days after the trial still absence of pain in the cervical spine absence of stiffness improved mobility of the cervical spine. She was implanted with ITDD with the tip of the catheter at bottom of C7 position and the catheter was filled with normal saline. Today she received as below the fentanyl into the pump. She stopped her benzodiazepines and she started hydroxyzine. She reports very good help of hydroxyzine for her anxiety and insomnia. Very detailed instructions were given to the patient about her pump, possible side effects and complications. The patient and her daughter who was with her during the visit. They will be using frequent pulse oxymetry frequently during the day time and contionuous pulse oxymetry during the night. Her daughter expressed to me that she and the of the patient will be taking turns at night and monitor the O2 sat numbers. They were explianed today that if the pulse oxymetry is in the lower 90 or higher 80 numbers they should count the patient's respiratory rate. If the numbers are below 88% and respiratory rate will be below 9 breaths a minute they should wake the patient using gentle but persistent stimulation such as shaking, sternal rub and pressure and voice. If the patient is not responsive they must administer naloxone intranasally, apply magnet to the location of the pump in the upper buttock and call 911 to go to the ER [facility]. They expressed understanding. They reported that they have the pulse oxymeter, BP device and naloxone at their household. 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 She was in this office under works with chronic pain syndrome, chronic cervicalgia, cervical radiculopathy, occipital headache.? She was offered intrathecal drug delivery system pain pump trial to help her pain.? She was given psychological approval by the [facility] despite the previous history as above. [facility] Medical History CVA (cerebral vascular accident) Post-laminectomy syndrome Migraines Bipolar disorder Surgical History H/O total hysterectomy History of arthroscopic knee surgery History of tubal ligation Hx of neck surgery History of lumpectomy of left breast Family History Mother Breast CA Thyroid cancer Ovarian cancer Uterine cancer CHF (congestive heart failure) Paternal Grandmother Lung cancer Paternal Uncle Colon cancer Social History Household Members: Spouse Housing: House Alcohol intake: current Alcohol intake frequency: does not drink Patient Tobacco Use Status: Current everyday Tobacco user Tobacco use type: Cigarette Cigarettes Per Day: 10 Years Smoked: 40 Second Hand Smoke Exposure: No Substance Use Type: Marijuana Current occupational status: disabled Sexual orientation: Straight/Heterosexual Gender identity: Female Review of Systems Const All systems reviewed & are unremarkable except as noted in HPI and below ENT Reports Normal hearing present Neuro Reports Normal hearing present, Denies Abnormal speech present and Denies confusion Psych Denies confusion Physical Exam Vital Signs: Last Vital Signs Pulse 98 10/01/23 11:22 Resp 20 10/01/23 11:22 BP 138/87 10/01/23 11:22 Pulse Ox 97 10/01/23 11:22 Oxygen Delivery Method Room Air 10/01/23 11:22 BMI result Body Mass Index 31.7 Const General: cooperative, healthy appearing and comfortable; No confusion Orientation/consciousness: No confusion HEENT Head: Yes normocephalic and Yes atraumatic Ears: hearing grossly normal bilaterally Eyes General: appearance normal, both eyes and all related structures Eyelids: Yes eyelids normal Pupils: Equal, round and reactive pupils present EOM: EOMs intact bilaterally Neck Other: Significant posterior scars midline incision on the neck are detected. The the scar is a very well-healed Neck: Yes normal visual inspection and Yes no JVD Resp Effort & Inspection: normal respiratory effort, able to speak in complete sentences and no audible wheezes Cardio Jugular venous distension: no JVD Neuro General: No confusion Cranial nerves: Yes Equal, round and reactive pupils present and Yes Normal hearing present Cognition (Neuro): normal cognition Speech: No Abnormal speech present Psych Appearance: grossly normal Mental Status: mental status grossly normal Speech and movement: Normal speech and movement present Affect: normal affect Attitude: cooperative Thought process: Normal thought process present Thought content: Normal thought content present Insight: Good insight present (Psych) Judgement: Good judgement present (Psych) Assessment & Plan Assessment & Plan (1) Postlaminectomy syndrome, cervical: Code(s): M96.1 - Postlaminectomy syndrome, not elsewhere classified Plan: (2) Occipital neuralgia: Code(s): M54.81 - Occipital neuralgia (3) Muscle spasms of neck: Code(s): M62.838 - Other muscle spasm (4) Migraines: Code(s): G43.909 - Migraine, unspecified, not intractable, without status migrainosus (5) Cervical radiculitis: Code(s): M54.12 - Radiculopathy, cervical region (6) Bipolar disorder in full remission: Code(s): F31.70 - Bipolar disorder, currently in remission, most recent episode unspecified (7) Physical deconditioning: Code(s): R53.81 - Other malaise Plan: She no longer is on intrathecal pump, it was explanted. DAMIEN drain removed today. DAMIEN drain bulb got perforated. It may lead to infection. Signs of infections explained to the patient. If there will be no signs of infection no new appointment is necessary. If the site will get infected I would need to perform I&D of the infection. (8) Implantable intrathecal infusion pump present: Code(s): Z96.89 - Presence of other specified functional implants Plan The pump implant was performed 05/13/2023. Coding Level of Care Code Est Pt Level 3 (68971) Diagnoses Postlaminectomy syndrome, cervical M96.1 Occipital neuralgia M54.81 Muscle spasms of neck M62.838 Migraines G43.909 Cervical radiculitis M54.12 Bipolar disorder in full remission F31.70 Physical deconditioning R53.81 Implantable intrathecal infusion pump present Z96.89
[2023-10-01 11:22] VITALS: BP 138/87; PULSE 98; RESP 20; O2SAT 97; BMI 31.7
== END 2023-10-01 11:28 | disposition home or self-care (01) ==
PROVIDERS: PCP Registered Nurse; Visit Provider Anesthesiology
DX: M54.12 Radiculopathy, cervical region (principal); F31.70 Bipolar disorder, currently in remission, most recent episode unspecified; R53.81 Other malaise; Z96.89 Presence of other specified functional implants
CPT/HCPCS: 99213

== ENCOUNTER → 2023-10-01 10:57 | Outpatient (BNVA) | payer MEDICAID, SELFPAY | PROVIDERS: PCP Registered Nurse; Visit Provider Anesthesiology | DX: M96.1 Postlaminectomy syndrome, not elsewhere classified (principal); M54.81 Occipital neuralgia; M62.838 Other muscle spasm; G43.909 Migraine, unspecified, not intractable, without status migrainosus; M54.12 Radiculopathy, cervical region; F31.70 Bipolar disorder, currently in remission, most recent episode unspecified; R53.81 Other malaise; Z96.89 Presence of other specified functional implants | CPT/HCPCS: 99212 ==

== ENCOUNTER 2023-10-13 14:29 | Outpatient (AMB) | payer MEDICAID, SELFPAY ==
--- NOTE | 2023-10-13 14:31 | MHC.OFFVIS ---
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 200] Allergy (Mild, Verified 10/01/23 11:23) HIVES ketorolac [From Toradol] Allergy (Mild, Verified 10/01/23 11:23) HIVES Penicillins Allergy (Mild, Verified 10/01/23 11:23) HIVES ibuprofen [IBUPROFEN] Allergy (Unknown, Verified 10/01/23 11:23) STOMACH UPSET-N/V acetaminophen [ACETAMINOPHEN] Adverse Reaction (Unknown, Verified 10/01/23 11:23) STOMACH UPSET-N/V Medication List - Last Reconciled 10/13/23 by Naveen Izaguirre MD albuterol 90 mcg/actuation 90 mcg inhalation Q4H PRN alprazolam 1 mg PO TID PRN clonidine HCl 0.1 mg PO Q12H PRN 30 days dicyclomine 20 mg PO QID PRN gabapentin 400 mg PO TID linaclotide (Linzess) 290 mcg PO DAILY methylphenidate HCl 20 mg PO BID omeprazole 40 mg PO DAILY ondansetron 4 mg PO Q8H PRN propranolol 20 mg PO BID quetiapine ER 400 mg PO QPM [Xanax 0.05 mg PO PRN] HPI HPI Comments History of Present Illness Details Palma states she is here for cardiac evaluation as she is concerned. Long history of smoking. She seems to also have several psychiatric issues including bipolar disorder. She does not have any clear-cut cardiac history like coronary disease but states that she has had strokes since 20s various times. However, not clear again if it is an accurate history or not. Otherwise, patient states she gets random episodes of chest tightness and some arm discomfort at different times. She also gets short of breath with activity. Hence she is worried she might have some heart disease. [facility], [facility] Medical History CVA (cerebral vascular accident) Post-laminectomy syndrome Migraines Bipolar disorder Surgical History H/O total hysterectomy History of arthroscopic knee surgery History of tubal ligation Hx of neck surgery History of lumpectomy of left breast Family History Mother Breast CA Thyroid cancer Ovarian cancer Uterine cancer CHF (congestive heart failure) Paternal Grandmother Lung cancer Paternal Uncle Colon cancer Social History Household Members: Spouse Housing: House Alcohol intake: current Alcohol intake frequency: does not drink Patient Tobacco Use Status: Current everyday Tobacco user Tobacco use type: Cigarette Cigarettes Per Day: 10 Years Smoked: 40 Second Hand Smoke Exposure: No Substance Use Type: Marijuana Current occupational status: disabled Sexual orientation: Straight/Heterosexual Gender identity: Female Review of Systems Const Denies chills, Denies fatigue, Denies fever(s), Denies frequent falls, Denies weakness, Denies weight gain and Denies weight loss ENT Denies dizziness Card Denies chest pain, Denies leg edema, Denies lightheadedness, Denies palpitations, Denies dyspnea, Denies dyspnea on exertion and Denies orthopnea Resp Denies cough, Denies dyspnea and Denies dyspnea on exertion GI Denies bloating and Denies change in bowel habits Musc Denies muscle weakness, Denies numbness and Denies tingling Neuro Denies dizziness, Denies frequent falls, Denies numbness, Denies tingling and Denies weakness Endo Denies fatigue and Denies palpitations Physical Exam Vital Signs: Last Vital Signs Pulse 79 10/13/23 14:32 BP 120/70 10/13/23 14:32 BMI result Body Mass Index 31.9 Const General: comfortable and no acute distress Orientation/consciousness: patient oriented x3 HEENT Other: Unremarkable Head: Yes normal to inspection Neck Neck: Yes normal visual inspection Chest Chest palpation & inspection: normal inspection of the chest Resp Auscultation: clear to auscultation bilaterally Cardio Palpation: normal PMI Heart sounds: S1 normal heart sound present, S2 normal heart sound present, no gallops, Murmur heart sound present systolic I/ and at the right sternal border and no rubs GI Palpation (GI): Soft to palpation Back/Spine/Pelvis Other: unremarkable Skin General skin exam: no rashes or lesions noted Neuro General: patient oriented x3 Extrem General: Yes normal to inspection Psych Mental Status: mental status grossly normal Office Procedures EKG Details: EKG with sinus rhythm at 79/Min; rightward axis; no significant ST-T changes and otherwise unremarkable. [place] [id number], Complete Assessment & Plan Assessment & Plan (1) Precordial chest pain: Code(s): R07.2 - Precordial pain (2) SOB (shortness of breath): Code(s): R06.02 - Shortness of breath Plan Atypical symptoms but heavy smoking history. Multiple comorbidities. We will do a comprehensive workup including echocardiogram and stress perfusion imaging study for further evaluation. Discussed also about smoking cessation but not sure if she will to that or not. Will follow-up after these are completed. Orders: Orders NM cardiolite stress test Today R07.2 - Precordial pain CA echo transthoracic complete Today R07.2 - Precordial pain CA stress test Today R07.2 - Precordial pain Coding Level of Care Code New Pt Level 4 (44560) Diagnoses Precordial chest pain R07.2 SOB (shortness of breath) R06.02 CPT Codes EKG - CPT: 88123-[id number], Complete ([id number])
[2023-10-13 14:32] VITALS: BP 120/70; PULSE 79; BMI 31.9
== END 2023-10-13 15:23 | disposition home or self-care (01) ==
PROVIDERS: PCP Registered Nurse; Visit Provider Internal Medicine
DX: R07.2 Precordial pain (principal); R06.02 Shortness of breath
CPT/HCPCS: 93010; 99204

== ENCOUNTER → 2023-10-13 14:29 | Outpatient (BNVA) | payer MEDICAID, SELFPAY | PROVIDERS: PCP Registered Nurse; Visit Provider Internal Medicine | DX: R07.2 Precordial pain (principal); R06.02 Shortness of breath | CPT/HCPCS: 93005; 99202 ==

== ENCOUNTER 2023-12-08 09:55 | Emergency (ER) | payer MEDICAID, SELFPAY ==
--- NOTE | ~2023-12-08 | XR_ITS ---
EXAMINATION: XR CHEST CLINICAL INFORMATION: Chest pain COMPARISON: Chest radiograph 09/26/2011, report only TECHNIQUE: Frontal view of the chest was obtained. FINDINGS: No significant abnormality is noted involving the heart, lungs, mediastinum or soft tissues. Posterior and anterior fixation hardware is noted in the lower cervical spine. XR/XR chest 1V IMPRESSION: Unremarkable examination.
[2023-12-08 10:03] VITALS: BP 123/99; BP 124/79; PULSE 107; RESP 20; TEMP 37.6; O2SAT 95; O2SAT 98; BMI 29.5
--- NOTE | 2023-12-08 10:09 | ECG_ITS ---
Test Reason : CP/SOB Blood Pressure : / mmHG Vent. Rate : 108 BPM Atrial Rate : 108 BPM P-R Int : 126 ms QRS Dur : 074 ms QT Int : 316 ms P-R-T Axes : 044 073 034 degrees QTc Int : 423 ms Sinus tachycardia Otherwise normal ECG No previous ECGs available Referred By: Nel James Electronically Signed By:RANDEE ARMSTRONG MD
--- NOTE | 2023-12-08 10:30 | ED_ITS ---
HPI - Chest Pain General Chief Complaint: Chest Pain Stated Complaint: SOB/CP Time Seen by Provider: 12/08/23 10:07 Source: patient and old records reviewed Mode of arrival: EMS Limitations: no limitations History of Present Illness HPI narrative: 48 yo female with PMH of bipolar, reported CVA but states she is not on any medications for it, anxiety, migraines, post laminectomy syndrome who was being treated by Dr. Mariscal and had fentanyl pain pump from April until about 5 weeks ago she notes since removal she now has severe chest pain, shortness of breath. She has been treated with nebs and prednisone but there is no help. She feels so weak she cannot handle it. Moving and coughing hurt her. 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 MD complaint: chest pain and chest heaviness Onset (ago): week(s) (weeks but much worse sometime this AM she cannot tell me when it started) Timing of current episode: constant Prior episodes: Yes Onset: during rest and during exertion Pain location: substernal Severity: severe Quality: aching and heaviness Relieving factors: nothing Exacerbating factors: palpation, movement and other (coughing) Context: other (started after removal of fentanyl pump) Associated symptoms: dyspnea, sense of impending doom and cough Treatment prior to arrival: aspirin and other (duoneb x 2) Related Data Home Medications ?Medication ?Instructions ?Recorded ?Confirmed ondansetron 4 mg disintegrating 4 mg PO Q8H PRN Nausea 03/05/22 10/13/23 tablet propranolol 20 mg tablet 20 mg PO BID 03/05/22 10/13/23 dicyclomine 20 mg tablet 20 mg PO QID PRN cramps 06/06/22 10/13/23 linaclotide 290 mcg capsule 290 mcg PO DAILY 06/06/22 10/13/23 (Linzess) omeprazole 40 mg capsule,delayed 40 mg PO DAILY 06/06/22 10/13/23 release albuterol 90 mcg/actuation aerosol 90 mcg inhalation Q4H PRN 06/09/22 10/13/23 inhaler Shortness Of Breath methylphenidate HCl 10 mg tablet 20 mg PO BID 12/03/22 10/13/23 quetiapine 300 mg tablet,extended 400 mg PO QPM 12/03/22 10/13/23 release 24 hr alprazolam 1 mg tablet 1 mg PO TID PRN severe pain 06/03/23 10/13/23 gabapentin 400 mg capsule 400 mg PO TID 06/03/23 10/13/23 Xanax 0.05 mg PO PRN Panic Attack(S) 09/18/23 10/13/23 Previous Rx's ?Medication ?Instructions ?Recorded clonidine HCl 0.1 mg tablet 0.1 mg PO Q12H PRN withdrawal 09/18/23 symptoms 30 days #60 tabs Allergies Allergy/AdvReac Type Severity Reaction Status Date / Time amoxicillin [Amoxicillin] Allergy Severe Anaphylaxis Verified 12/08/23 10:07 bee pollen [BEE STINGS] Allergy Severe SWELLING Verified 12/08/23 10:07 erythromycin base Allergy Mild HIVES Verified 12/08/23 10:07 [From E.E.S. 200] ketorolac [From Toradol] Allergy Mild HIVES Verified 12/08/23 10:07 Penicillins Allergy Mild HIVES Verified 12/08/23 10:07 ibuprofen [IBUPROFEN] Allergy Unknown STOMACH Verified 12/08/23 10:07 UPSET-N/V acetaminophen [ACETAMINOPHEN] AdvReac Unknown STOMACH Verified 12/08/23 10:07 UPSET-N/V Review of Systems 2 Review of Systems: Constitutional : No Weight loss, No Fever, pos Chills ENT/Mouth : No sore throat, No Rhinorrhea Eyes: No Eye Pain, No Swelling Cardiovascular : pos Chest Pain, pos SOB, pos Dyspnea on Exertion, No Orthopnea, No Edema, No Palpitations Respiratory : pos Cough, No Sputum Gastrointestinal : pos Nausea, No Vomiting, No Diarrhea, No abdominal Pain, No Hematochezia, No Melena Genitourinary : No Dysuria, No Urinary Frequency Musculoskeletal : No joint pain, pos Myalgias, No Joint Swelling Skin : No Skin Lesions, No rash Neuro : No Weakness, No Numbness, No Dizziness, No Headache Psych : No Anxiety/Panic, No Depression All other systems reviewed and are negative [facility] Past Medical History Attestation statement: The following information was validated with the patient. Source: old records reviewed Medical History CVA (cerebral vascular accident) Post-laminectomy syndrome Migraines Bipolar disorder Surgical History H/O total hysterectomy History of arthroscopic knee surgery History of tubal ligation Hx of neck surgery History of lumpectomy of left breast Family History Family History Mother Breast CA Thyroid cancer Ovarian cancer Uterine cancer CHF (congestive heart failure) Paternal Grandmother Lung cancer Paternal Uncle Colon cancer Social History Social History Household Members: Spouse Housing: House Alcohol intake: current Alcohol intake frequency: does not drink Patient Tobacco Use Status: Current everyday Tobacco user Tobacco use type: Cigarette Cigarettes Per Day: 10 Years Smoked: 40 Second Hand Smoke Exposure: No Substance Use Type: Marijuana Advance Directives: No Advance Directives Information Provided: Yes Current occupational status: disabled Sexual orientation: Straight/Heterosexual Gender identity: Female Physical Exam 2 Vital Signs: Vital Signs: Last Vital Signs Temp 99.6 F 12/08/23 10:03 Pulse 107 H 12/08/23 10:03 Resp 20 12/08/23 10:03 BP 123/99 H 12/08/23 10:03 Pulse Ox 95 12/08/23 10:03 O2 Del Method Room Air 12/08/23 10:03 BMI result Body Mass Index 29.5 Appearance: Alert. Oriented X3. Crying tearful holding chest mild acute distress. Eyes: Pupils equal, round and reactive to light. ENT: Pharynx normal. Neck: Normal inspection. Neck supple. CVS: tachycardic heart rate and rhythm. Pulses normal. Chest: ttp along sternum reproduces pain Respiratory: No respiratory distress. Breath sounds normal. Abdomen: Soft and non-tender. Skin: Skin warm and dry. Normal skin color. Normal skin turgor. Extremities: No lower extremity edema. No calf ttp Neuro: Oriented X 3. No motor deficit. No sensory deficit. Medications Administered Discontinued Medications Generic Name Dose Route Start Last Admin Trade Name Freq PRN Reason Stop Dose Admin Lidocaine 1 patch 12/08/23 11:17 12/08/23 11:24 Lidocaine 4 % Patch Adh..Patch TRANSDERMA 12/08/23 11:18 1 patch ONCE ONE Administration Protocol Lorazepam 1 mg 12/08/23 10:17 12/08/23 10:39 Lorazepam 2 Mg/Ml Vial IVPUSH 12/08/23 10:18 1 mg STAT STA Administration Medical Decision Making Medical Decision Making [facility] Narrative: 48 yo female with PMH of bipolar, reported CVA but states she is not on any medications for it, anxiety, migraines, post laminectomy syndrome here with atypical onset of difficulty breathing coughing intermittent chest pain since removal of her fentanyl pain pump taking nebs and PO prednisone at home with little relief. At this time she is very anxious and hyperventilating her story is not very consistent with ACS will obtain ddimer, troponin x 1, EKG, CXR, labs, start IV ativan for her degree of anxiety. I am going to hold further nebs I do not hear wheezing and I suspect her tachycardia is due to nebs at this time. Differential Diagnosis Differential Diagnoses: The differential diagnosis associated with the presentation includes chest wall pain, anxiety, low susp for VTE, no known risk factors VTE - atypical, bronchitis Admission/Observation Consideration of admission/observation: Escalation of care including admission/observation considered trop negative, EKG nonischemic ddimer negative CXR negative Lab Data [facility] Lab Attestation statement: I reviewed the patient's lab results. WBC from prednisone use 12/08/23 10:36 12/08/23 10:36 Labs: Lab Results 12/08/23 Range/Units 10:36 WBC 14.3 H (4.8-10.8) X10*3/uL RBC 3.79 L (4.20-5.50) X10*6/uL Hgb 12.6 (12.0-16.0) g/dl Hct 37.5 (37.0-47.0) % MCV 98.9 H (80.0-98.0) fL MCH 33.2 H (27.0-33.0) pg MCHC 33.6 (31.0-35.0) g/dl RDW 15.2 (11.0-16.0) % Plt Count 282 (160-400) X10*3/uL MPV 9.3 L (9.4-12.3) fL Immature Gran % (Auto) 2.4 H (0.0-0.4) % Neut % (Auto) 71.5 (45-73) % Lymph % (Auto) 12.4 L (20-40) % Granite % (Auto) 11.9 H (2-11) % Eos % (Auto) 1.5 (0-4) % Baso % (Auto) 0.3 (0-2) % Lymph # (Auto) 1.8 (1.2-4.9) X10*3/uL Granite # (Auto) 1.7 H (0.1-1.2) X10*3/uL Eos # (Auto) 0.2 (0.0-0.4) X10*3/uL Baso # (Auto) 0.0 (0.0-0.2) X10*3/uL Abs Immat Gran (auto) 0.34 H (0.00-0.03) X10*3/uL Absolute Neuts (auto) 10.2 H (2.0-8.3) x10*3/uL Absolute Nucleated RBC 0.000 (0.0-0.012) X10*3/uL Nucleated RBC % (auto) 0.0 (0.0-0.2) /100WBC Smear Tech's Comments VERIFIED D-Dimer High Sensitivty 177 NG/ML Sodium 135 (135-145) mmol/L Potassium 3.8 (3.3-5.1) mmol/L Chloride 104 (96-108) mmol/L Carbon Dioxide 25 (22-29) mmol/L Anion Gap 10 L (12-20) BUN 8 L (9-16) mg/dL Creatinine 0.76 (0.5-1.4) mg/dL Estim Creat Clear Calc 96.8 Estimated GFR > 60 Random Glucose 88 (60-115) mg/dL Calcium 9.2 (8.4-10.2) mg/dL Magnesium 1.9 (1.6-2.6) mg/dL Total Bilirubin 0.2 (0.0-1.0) mg/dL Direct Bilirubin < 0.2 (0.0-0.5) mg/dL AST 16 (5-31) U/L ALT 56 H (0-31) U/L Alkaline Phosphatase 84 (39-117) U/L Troponin I High Sens < 2.7 (<3.5-17.0) ng/L B-Natriuretic Peptide < 10 (<100) pg/mL Total Protein 7.1 (6.5-8.0) g/dL Albumin 4.0 (3.5-5.0) g/dL Lipase 29 (8-78) U/L Independent Interpretation I performed an independent interpretation of an: EKG and Plain X-Ray (normal ) Interpretation: Rate: 108 Rhythm: sinus tach [place]: normal Normal P waves. Normal SRINIVASAN. Normal QRS complex. ST T wave : nonspecific ant leads, no TYESHA qTC: 423 prior studies: no acute ischemia The study has been interpreted contemporaneously by me. . Radiology Impression Discussion of test interpretation with radiology: I have reviewed the radiologist's reading. Independent Historian Clinical information obtained from an independent historian. History obtained from or confirmed by: EMS External Record Review External record reviewed: Office record Prescription Management I considered prescription management with: Pain Medication and Other Discharge Plan Discharge Clinical Impression: Atypical chest pain, Acute costochondritis Patient Disposition: Home, Self-Care Instructions: Chest Pain (ED), Costochondritis (ED) Additional Instructions: heart tests normal, blood clot test normal, chest xray normal return for worsening symptoms or concerns. Prescriptions: No Action Xanax 0.05 mg PO PRN (Reason: Panic Attack(S)) clonidine HCl 0.1 mg tablet 0.1 mg PO Q12H PRN (Reason: withdrawal symptoms) 30 Days Qty: 60 0RF Rx Instructions: Please take clonidine only if heart rate above 100 and blood pressure above 169/99 MM Hg. ondansetron 4 mg tablet,disintegrating 4 mg PO Q8H PRN (Reason: Nausea) propranolol 20 mg tablet 20 mg PO BID methylphenidate HCl 10 mg tablet 20 mg PO BID dicyclomine 20 mg tablet 20 mg PO QID PRN (Reason: cramps) omeprazole 40 mg capsule,delayed release(DR/EC) 40 mg PO DAILY Linzess 290 mcg capsule 290 mcg PO DAILY albuterol 90 mcg/actuation aerosol 90 mcg inhalation Q4H PRN (Reason: Shortness Of Breath) quetiapine 300 mg tablet extended release 24 hr 400 mg PO QPM alprazolam 1 mg tablet 1 mg PO TID PRN (Reason: severe pain) gabapentin 400 mg capsule 400 mg PO TID Print Language: Welsh
[2023-12-08] MEDS: LORazepam 2 MG/ML VIAL 1 MG IVPUSH (10:39)
--- OUTSIDE RECORDS SUMMARY | 2023-12-08 10:44 | XMS_ITS | Continuity of Care Document ---
Author Organization [facility] Address [address] [place] [id number]- Care Team Providers Care Tower Helper Name Role Phone [place] KONG, Philippe Primary Care Physician Unavaila ble [place] [facility] [place]23 [place] 10[place]/23 [facility] [address] [place] [id number]- [place] Allergies, Adverse Reactions, Alerts Substance Reaction Severity Status erythromycin C/O: a swelling Hives Active amoxicillin C/O: a swelling Hives Active penicillin C/O: a swelling Hives Active Toradol Rash Hives Active Motrin pt states she can't take this because she is on lithium Active Tylenol pt states she can't take this because she takes lithium Active Reglan Motor restlessness Active Immunizations Given and Recorded Vaccine Date Status Refusal Reason influenza virus vaccine, inactivated 10/25/14 Give n influenza virus vaccine, inactivated 09/24/13 Give n influenza virus vaccine, inactivated 05/31/09 Give n pneumococcal 23-valent vaccine 09/24/13 Given tetanus-diphtheria toxoids (Td) 04/17/09 Given Medications EpiPen 2-Lenin 0.3 mg injectable kit See Instructions, Intramuscular Once, # 1 box, 3 Refills Start Date: 09/28/09 Stop Date: 09/28/09 Status: Ordered gabapentin 400 mg oral capsule 400 mg, 1, capsule, By Mouth, 3 times a day, # 30 capsule, Refills 0, Maintenance, 02/21/22 15:51:00 EDT, Partial fill upon patient request if the prescription is for a schedule II opioid drug. Start Date: 02/21/22 Status: Ordered methylphenidate 5 mg oral tablet = 10 mg, By Mouth, Daily, 0 Refills, Maintenance, 10/24/14 1:12:32, Tablet Start Date: 10/24/14 Status: Ordered ondansetron 4 mg oral tablet, disintegrating 1 tablet = 4 mg, By Mouth, Every 8 hours, PRN as needed for nausea/vomiting, # 15 tablet, 0 Refills, Maintenance, 02/25/22 23:46:00 EDT, DIS Tablet, [facility]/pharmacy #[id number], Partial fill upon patient request if the prescription is for a schedule II opioid... Start Date: 02/25/22 Status: Ordered Robaxin 500 mg oral tablet 1 tablet = 500 mg, By Mouth, 4 times a day, 0 Refills, Maintenance, 10/19/15 15:27:46 Start Date: 10/19/15 Status: Ordered Seroquel XR 400 mg oral tablet, extended release 1 tablet = 400 mg, By Mouth, Daily in PM, # 30 tablet, 0 Refills, Maintenance, 10/24/14 1:10:21, ERTablet Start Date: 10/24/14 Status: Ordered Problem List Condition Confirmation Course Effective Dates Status Health St atus Informant Bipolar 1 disorder Confirmed Active GERD - Gastro-esophageal reflux disease Confirmed Active H/O: migraine Confirmed Active Liver cyst Confirmed Active Neck pain Confirmed Active Obese class I Confirmed Active PTSD - Post-traumatic stress disorder Confirmed Active Renal cyst Confirmed Active Urinary retention Confirmed Active Social History Social History Type Response Smoking Status Current every day sm oker; Type: Cigarettes; Tobacco use times per day: 1/2 pack per day; Number of years: 10; entered on: 10/24/14 Sex Patient Care team information Care Team Personnel Name: Philippe Golden NP Position: Reference Physician Member Role: PCP Name: Carrie Azevedo Position: [facility] Outreach Member Role: Lifetime Consulting Physician Care Team Related Persons Name: CLARITZA DENG Address: [address] [place] [address] Name: ZAIRE CHENG Address: home [address] [place] [address]
--- OUTSIDE RECORDS SUMMARY | 2023-12-08 10:44 | XMS_ITS | Continuity of Care Document ---
Author Organization [facility] Address [address] [place] [id number]- Care Team Providers Care Watcher Automat [employer]s Name Role Phone Not on Staff, PCP Primary Care Physician Unavail able Encounter [facility] Date(s): 02/25/22 - 02/26/[address] [address]- Encounter Diagnosis Back pain(Final) - 02/26/22 Discharge Disposition: A-D/C Home Attending Physician: Anuj Constantino MD Admitting Physician: Anuj Constantino MD Referring Physician: Not on Staff, Referring MD Allergies, Adverse Reactions, Alerts Substance Reaction Severity Status erythromycin C/O: a swelling Hives Active penicillin C/O: a swelling Hives Active Toradol Rash Hives Active Reglan Motor restlessness Active amoxicillin C/O: a swelling Hives Active Motrin pt states she can't take this because she is on lithium Active Tylenol pt states she can't take this because she takes lithium Active Immunizations Given and Recorded Vaccine Date [...] 1:12:32, Tablet Start Date: 10/24/14 Status: Ordered MorPHINE Inj 2 mg, Injection, IV Push Slowly, Once, STAT, 02/25/22 21:32:00 EDT, Stop date 02/25/22 21:32:00 EDT Start Date: 02/25/22 Stop Date: 02/25/22 Status: Completed ondansetron 4 mg oral tablet, disintegrating 1 tablet = 4 mg, By Mouth, Every 8 hours, PRN as needed for nausea/vomiting, # 15 tablet, 0 Refills, Maintenance, 02/25/22 23:46:00 EDT, DIS Tablet, [facility]/pharmacy #[id number], Partial fill upon patient request if the prescription is for a schedule II opioid... Start Date: 02/25/22 Status: Ordered OxyCODONE IR Tablet 5 mg, Tablet, By Mouth, Once, STAT, 02/25/22 23:44:00 EDT, Stop date 02/25/22 23:44:00 EDT Start Date: 02/25/22 Stop Date: 02/25/22 Status: Completed Robaxin 500 mg oral tablet 1 tablet = 500 mg, By Mouth, 4 times a day, 0 Refills, Maintenance, 10/19/15 15:27:46 Start Date: 10/19/15 Status: Ordered Seroquel XR 400 mg oral tablet, extended release 1 tablet = 400 mg, By Mouth, Daily in PM, # 30 tablet, 0 Refills, Maintenance, 10/24/14 1:10:21, ERTablet Start Date: 10/24/14 Status: Ordered Problem List Condition Effective Dates Status Health Status Inform ant Bipolar 1 disorder(Confirmed) Active GERD - Gastro-esophageal ref lux disease(Confirmed) Active H/O: migraine(Confirmed) Active Liver cyst(Confirmed) Active Neck pain(Confirmed) Active Obese class I(Confirmed) Active PTSD - Post-traumatic stress disorder(Confirmed) Active Renal cyst(Confirmed) Active Urinary retention(Confirmed) Active Vital Signs Most recent to oldest [Reference Range]: 1 2 3 Oxygen Saturation [94-100 %] 99 % (02/25/22 9:22 PM) 100 % (02/25/22 6:10 PM) 95 % (02/25/22 3:56 PM) Pulse Rate [55-90 bpm] 70 bpm (02/25/22 9:22 PM) 81 bpm (02/25/22 6:10 PM) 55 bpm (02/25/22 3:56 PM) Blood Pressure [90-138/55-84 mm Hg] 113/72mm Hg (02/25/22 9:22 PM) 93/76mm Hg (02/25/22 6:10 PM) 159/124mm Hg *H* (02/25/22 3:56 PM) Respiratory Rate [16-30 br/min] 18 br/min (02/25/22 11:55 PM) 15 br/min *L* (02/25/22 10:13 PM) 18 br/min (02/25/22 9:43 PM) Temperature [96.8-100.4 DegF] 98.0 DegF (02/25/22 6:10 PM) 97.8 DegF (02/25/22 3:56 PM) 98.5 DegF (02/25/22 2:07 PM) Mode of Delivery (Oxygen) Room air (02/25/22 9:22 PM) Room air (02/25/22 6:10 PM) Room air (02/25/22 3:56 PM) Blood pressure sites Arm, right (02/25/22 9:22 PM) Arm, right (02/25/22 6:10 PM) Arm, right (02/25/22 3:56 PM) Temperature Route Oral (02/25/22 6:10 PM) Oral (02/25/22 3:56 PM) Oral (02/25/22 2:07 PM) Social History Social History Type Response Smoking Status Current every day josé miguel powell; Type: Cigarettes; Tobacco use times per day: 1/2 pack per day; Number of years: 10; entered on: 10/24/14 Sex
--- OUTSIDE RECORDS SUMMARY | 2023-12-08 10:44 | XMS_ITS | Continuity of Care Document ---
Author Organization [facility] Address [address] [place] [id number]- Care Team Providers Care Gambling Monitor Name Role Phone Not on Staff, PCP Primary Care Physician Unavail able Encounter [facility] [place] Date(s): 06/14/21 - 06/14/[address] [address]- Discharge Disposition: A-D/C Walkout Attending Physician: Not on Staff, Attending MD Admitting Physician: Not on Staff, Admitting MD Referring Physician: Not on Staff, Referring MD Allergies, Adverse Reactions, Alerts Substance Reaction Severity Status erythromycin C/O: a swelling Hives Active penicillin C/O: a swelling Hives Active Toradol Rash Hives Active Tylenol pt states she can't take this because she takes lithium Active amoxicillin C/O: a swelling Hives Active Motrin pt states she can't take this because she is on lithium Active Reglan Motor restlessness Active Immunizations Given and Recorded Vaccine Date Status Refusal Reason influenza virus vaccine, inactivated 10/25/14 Give n influenza virus vaccine, inactivated 09/24/13 Give n influenza virus vaccine, inactivated 05/31/09 Give n pneumococcal 23-valent vaccine 09/24/13 Given tetanus-diphtheria toxoids (Td) 04/17/09 Given Medications Depakote Capsule 1,000 mg, By Mouth, Daily at bedtime, Maintenance, 10/19/15 15:25:21 Start Date: 10/19/15 Status: Ordered EpiPen 2-Lenin 0.3 mg injectable kit See Instructions, Intramuscular Once, # 1 box, 3 Refills Start Date: 09/28/09 Stop Date: 09/28/09 Status: Ordered Flovent HFA 110 mcg/inh inhalation aerosol with adapter 2 puffs, Inhalation, 2 times a day, # 12 Gm, 5 Refills, Aerosol Start Date: 09/28/09 Stop Date: 10/28/09 Status: Ordered KlonoPIN 1 mg oral tablet 1 tablet = 1 mg, By Mouth, 3 times a day, 0 Refills, Maintenance, 10/26/15 6:47:09, Tablet Start Date: 10/26/15 Status: Ordered methylphenidate 5 mg oral tablet = 10 mg, By Mouth, Daily, 0 Refills, Maintenance, 10/24/14 1:12:32, Tablet Start Date: 10/24/14 Status: Ordered oxyCODONE 15 mg oral tablet 1 tablet = 15 mg, By Mouth, Every 6 hours, PRN for pain, # 30 tablet, 0 Refills, Maintenance, 11/21/15 6:49:55, Tablet Start Date: 11/21/15 Status: Ordered Robaxin 500 mg oral tablet 1 tablet = 500 mg, By Mouth, 4 times a day, 0 Refills, Maintenance, 10/19/15 15:27:46 Start Date: 10/19/15 Status: Ordered Seroquel XR 400 mg oral tablet, extended release 1 tablet = 400 mg, By Mouth, Daily in PM, # 30 tablet, 0 Refills, Maintenance, 10/24/14 1:10:21, ERTablet Start Date: 10/24/14 Status: Ordered trazodone 100 mg oral tablet 1 tablet = 100 mg, By Mouth, Daily at bedtime, # 270 tablet, 0 Refills, Maintenance, 10/24/14 1:10:39, Tablet Start Date: 10/24/14 Status: Ordered Problem List Condition Effective Dates Status Health Status Inform ant Bipolar 1 disorder(Confirmed) Active GERD - Gastro-esophageal ref lux disease(Confirmed) Active H/O: migraine(Confirmed) Active Liver cyst(Confirmed) Active Neck pain(Confirmed) Active PTSD - Post-traumatic stress disorder(Confirmed) Active Renal cyst(Confirmed) Active Urinary retention(Confirmed) Active Results Radiology Reports * Exam Date Time Procedure Performing Provider Status 06/14/21 5:43 PM Chest Portable Cindy Dawn; Robert (Verified) Notes: (Chest Portable) Reason For Exam: Cough RESULT: Chest Portable Chest Portable Hx of Present Illness: n v d AP x9 days. RUQ pain.; Reason: Cough; Clinical Question(s): Pneumonia;Special Instructions: This is a protocol film and radiologist should call any findings to the Charge Nurse or appropriate provider COMPARISON: 10/23/2014. FINDINGS: LINES AND TUBES: None. LUNGS AND PLEURA: Mildly low lung volumes with mild basilar atelectasis. Lungs are otherwise clear with no consolidation. No pleural effusion. No pneumothorax. HEART, MEDIASTINUM AND NGOC: Heart is normal in size. Normal upper mediastinal and hilar contour. BONES AND SOFT TISSUES: Cervicothoracic fixation hardware has been revised since the prior study, incompletely visualized. No acute abnormality. Prominent air-filled colon below the right hemidiaphragm. IMPRESSION: No acute abnormality. WSN: [id number] Ordering Physician: Alejandro Francis Dictated By: Lara Mcallister MD Dictated Date/Time: 06/14/21 5:53 pm Reviewed By: Lara Mcallister MD Signed By: Lara Mcallister MD Signed Date/Time: 06/14/21 5:53 pm Transcribed By: SEEMA Transcribed Date/Time: 06/14/21 5:51 pm Vital Signs Most recent to oldest [Reference Range]: 1 2 3 Oxygen Saturation [94-100 %] 100 % (06/14/21 8:47 PM) 98 % (06/14/21 6:54 PM) 96 % (06/14/21 5:24 PM) Pulse Rate [55-90 bpm] 88 bpm (06/14/21 8:47 PM) 83 bpm (06/14/21 6:54 PM) 78 bpm (06/14/21 5:24 PM) Blood Pressure [90-138/55-84 mm Hg] 135/78mm Hg (06/14/21 8:47 PM) 139/97mm Hg *H* (06/14/21 6:54 PM) 128/73mm Hg (06/14/21 5:24 PM) Respiratory Rate [16-30 br/min] 20 br/min (06/14/21 8:47 PM) 22 br/min (06/14/21 6:54 PM) 18 br/min (06/14/21 5:24 PM) Temperature [96.8-100.4 DegF] 97.9 DegF (06/14/21 6:54 PM) 99.1 DegF (06/14/21 5:24 PM) Mode of Delivery (Oxygen) Room air (06/14/21 8:47 PM) Room air (06/14/21 6:54 PM) Room air (06/14/21 5:24 PM) Blood pressure sites Arm, left (06/14/21 6:54 PM) Temperature Route Oral (06/14/21 6:54 PM) Oral (06/14/21 5:24 PM) Social History Social History Type Response Smoking Status Current every day josé miguel powell; Type: Cigarettes; Tobacco use times per day: 1/2 pack per day; Number of years: 10; entered on: 10/24/14 Sex
[2023-12-08 10:45] LABS: Basophils Percent Auto 0.3 % (0-2); Eosinophils Absolute Auto 0.2 X10*3/uL (0.0-0.4); Eosinophils Percent Auto 1.5 % (0-4); Hematocrit 37.5 % (37.0-47.0); Hemoglobin 12.6 g/dl (12.0-16.0); Imm Gran Abs Auto 0.34 X10*3/uL (0.00-0.03); Imm Gran Pct Auto 2.4 % (0.0-0.4); Lymphocytes Absolute Auto 1.8 X10*3/uL (1.2-4.9); Lymphocytes Percent Auto 12.4 % (20-40); MANUAL DIFF FLAG SCAN; Mean Corpuscular HGB Conc 33.6 g/dl (31.0-35.0); Mean Corpuscular Hemoglobin 33.2 pg (27.0-33.0); Mean Corpuscular Volume 98.9 fL (80.0-98.0); Mean Platelet Volume 9.3 fL (9.4-12.3); Monocytes Absolute Auto 1.7 X10*3/uL (0.1-1.2); Monocytes Percent Auto 11.9 % (2-11); Neutrophils Absolute Auto 10.2 x10*3/uL (2.0-8.3); Neutrophils Percent Auto 71.5 % (45-73); Platelet Count 282 X10*3/uL (160-400); Red Blood Count 3.79 X10*6/uL (4.20-5.50); Red Cell Distribution Width 15.2 % (11.0-16.0); SCAN SMEAR FLAG 1; White Blood Count 14.3 X10*3/uL (4.8-10.8)
--- OUTSIDE RECORDS SUMMARY | 2023-12-08 10:45 | XMS_ITS | Continuity of Care Document ---
Author Organization [facility] Address [address] [place] [id number]- Care Team Providers Care Generator Man Name Role Phone [place] KONG, Philippe Primary Care Physician Unavaila ble Encounter [facility] [place](s): 02/02/23 - 03/04/23 [facility] [address] [place] [id number]- Allergies, Adverse Reactions, Alerts Substance Reaction Severity [...] Refills, Maintenance, 02/25/22 23:46:00 EDT, DIS Tablet, [facility]/pharmacy #[id number], Partial fill upon patient request [...] NP Position: Reference Physician Member Role: PCP Address: Address: [address] [place] [address]- Name: Carrie Azevedo Position: [facility] Outreach Member Role: Lifetime Consulting Physician Name: Eladia Tello RN Position: [facility] RN Member Role: Primary Care Nurse Care Team Related Persons Name: CLARITZA DENG Address: home [address] [place] [address] Name: ZAIRE CHENG Address: home [address] [place] [address]
--- OUTSIDE RECORDS SUMMARY | 2023-12-08 10:45 | XMS_ITS | Continuity of Care Document ---
Author Organization [facility] Address [address] [place] [id number]- Care Team Providers Care Linux Systems Analyst Name Role Phone [place] KONG, Philippe Primary Care Physician Unavaila ble Encounter [facility] Date(s): 12/07/22 - 12/07/[address] [address]- Encounter Diagnosis Back pain(Final) - 12/07/22 Discharge Disposition: A-D/C Home Attending Physician: Cate Petty MD Admitting Physician: Cate Petty MD Referring Physician: Not on Staff, Referring [...] Refills, Maintenance, 02/25/22 23:46:00 EDT, DIS Tablet, [facility]/pharmacy #[id number], Partial fill upon patient request if [...] cyst Confirmed Active Urinary retention Confirmed Active Vital Signs Most recent to oldest [Reference Range]: 1 2 Oxygen Saturation [94-100 %] 97 % (12/07/22 8:19 PM) 99 % (12/07/22 4:08 PM) Pulse Rate [55-90 bpm] 68 bpm (12/07/22 8:19 PM) 84 bpm (12/07/22 4:08 PM) Blood Pressure [90-138/55-84 mm Hg] 113/ 69mm Hg (12/07/22 8:19 PM) 155/84mm Hg *H* (12/07/22 4:08 PM) Respiratory Rate [16-30 br/min] 17 br/mi n (12/07/22 8:19 PM) 18 br/min (12/07/22 4:08 PM) Temperature [96.8-100.4 DegF] 98.5 DegF (12/07/22 8:19 PM) 99.1 DegF (12/07/22 4:08 PM) Mode of Delivery (Oxygen) Room air (12/07/22 8:19 PM) Room air (12/07/22 4:08 PM) Blood pressure sites Arm, left (12/07/22 8:19 PM) Arm, left (12/07/22 4:08 PM) Temperature Route Oral (12/07/22 8:19 PM) Oral (12/07/22 4:08 PM) Social History Social History Type Response Smoking Status Current every day josé miguel oker; Type: Cigarettes; Tobacco use times per day: 1/2 pack per day; Number of years: 10; entered on: 10/24/14 Sex Note * Roddy Dhillon MD: PERFORM Event Display: Patient Education Leaflets Authored Date: Back Pain (Acute or Chronic) ?? [id number] Back Pain (Acute or Chronic) Back pain is one of the most common problems. The good news is that most people feel better in 1 to2 weeks, and most of the rest in 1 to 2 months. Most people can remain active. People who have pain??describe it differently???not??everyone is the same. ??? The pain can be sharp, stabbing, shooting, aching, cramping or burning. ??? Movement, standing,bending, lifting, sitting, or walking may worsen pain. ??? It can be limited to one spot or area, or it can be more generalized. ??? It can spread upwards, to the front, or go down your arms or legs (sciatica). ??? It can cause muscle spasm. Most of the time, mechanical problems with the muscles??or spine cause the pain. Mechanical problems??are usually caused by an injury to the muscles or ligaments. Illness can cause back pain, but it's usually not caused by a serious illness. Mechanical problems include:? Physical activity such as sports, exercise, work, or normal activity ??? Overexertion, lifting,pushing, pulling incorrectly or too aggressively ??? Sudden twisting, bending, or stretching from an accident, or accidental movement ??? Poor posture ??? Stretching or moving wrong, without noticingpain at the time ??? Poor coordination, lack of regular exercise (check with your doctor about this) ??? Spinal disc disease or arthritis ??? Stress Pain can also be related to , or illness such as appendicitis, bladder or kidney infections, kidney stones, and pelvic infections. Acute back pain usually gets better in??1 to 2 weeks. Back pain related to disk disease, arthritis in the spinal joints, or narrowing of the spinal canal (spinal stenosis) can become chronic and lastfor months or years. Unless you had a physical injury such as a car accident or fall, X-rays are usually not needed for the first assessment of back pain. If pain continues and does not respond to medical treatment, you may need X-rays and other tests. Home care Try this home care advice: ??? When in bed, try??to find a position of comfort. A firm mattress is best. Try lying flat on your back with pillows under your knees. You can also try lying on your side with your knees bent up toward your chest and a pillow between your knees. ??? At first, don't try to stretch out the sore spots. If there is a strain, it's not like the good soreness you get after exercising without an injury. In this case, stretching may make it worse. ??? Don't sit for long periods, as in a long car ride or during other??travel. This puts more stress on the lower back than standing or walking. ??? During the first 24 to 72 hours after an acute injury or flare up of chronic back pain, apply an ice pack to the painful area for 20 minutes and then remove it for 20 minutes. Do this over a period of 60 to 90 minutes or several times a day. This will reduce swelling and pain. Wrap the ice pack in a thintowel or plastic to protect your skin. ??? You can start with ice, then switch to heat. Heat (hot shower, hot bath, or heating pad) reduces pain and works well for muscle spasms. Heat can be applied to the painful area for 20 minutes then remove it for 20 minutes. Do this over a period of 60 to 90 minutes or several times a day. Don't sleep on a heating pad. It can lead to skin aragon or tissue damage. ??? You can alternate ice and heat therapy. Talk with your doctor about??the best treatment for your back pain. ??? Therapeutic massage can help relax the back muscles without stretching them. ??? Be aware of safe lifting methods. Don't lift anything without stretching first. Medicines Talk to your doctor before using medicine, especially if you have other medical problems or are taking other medicines. ??? You may use [id number] medicine as directed on the bottle to control pain, unless another pain medicine was prescribed. Talk with your healthcare provider before using these medicines if you have chronic conditions such as diabetes, liver or kidney disease, stomach ulcers, or digestive bleeding. Also talk with your provider if you take blood thinners. ??? Be careful if you are given a prescription medicines, narcotics, or medicine for muscle spasms. They can cause drowsiness, affect your coordination, reflexes, and judgment. Don't drive or operate heavy machinery. ?? Follow-up care Follow up with your healthcare provider, or as advised.?? If X-rays were taken, you will be told of any new findings that may affect your care. ?? Call 911 Call 911 if any of the following occur: ??? Trouble breathing ??? Confusion ??? Very drowsy or trouble awakening ??? Fainting or loss of consciousness ??? Rapid or very slow heart rate ??? Loss of bowel or bladder control ?? When to seek medical advice Call your healthcare provider right away if any of these occur:? Pain gets worse or spreads toyour legs ??? Your bowel or bladder control changes ??? Fever ??? Blood in your urine ??? Weakness or numbness in one or both legs ??? Numbness in the groin or genital area ?? Last Reviewed Date: 2021 ?? [id number] [employer]. All rights reserved. This information is not intended as a substitute for professional medical care. Always follow your healthcare professional's instructions. ?? Patient Care team information Care Team Personnel Name: Philippe Golden NP Position: Reference Physician Member Role: PCP Address: Address: [address] [place] [address]- Name: Carrie Azevedo Position: [facility] Outreach Member Role: Lifetime Consulting Physician Name: Eladia Tello RN Position: [facility] RN Member Role: Primary Care Nurse Name: Aniyah Foley RN Position: [facility] ED RN W/OE and Tasks Member Role: Patient Care Provider Name: Cate Petty MD Position: [facility] Resident Member Role: Admitting Physician Address: Address: [address] [place] [id number]- Name: Roddy Dhillon MD Position: [facility] Resident Member Role: ED Resident Address: Address: [address] [place] [address]- Care Team Related Persons Name: CLARITZA DENG Address: [address] [place] [address] Name: ZAIRE CHENG Address: [address] [place] [address]
[2023-12-08 10:50] LABS: D Dimer High Sensitivity 177 NG/ML
[2023-12-08 10:58] LABS: Alanine Aminotransferase 56 U/L (0-31); Alkaline Phosphatase 84 U/L (39-117); Anion Gap 10 (12-20); Aspartate Amino Transferase 16 U/L (5-31); Bilirubin Direct < 0.2 mg/dL (0.0-0.5); Bilirubin Total 0.2 mg/dL (0.0-1.0); Blood Urea Nitrogen 8 mg/dL (9-16); Calcium 9.2 mg/dL (8.4-10.2); Carbon Dioxide 25 mmol/L (22-29); Chloride 104 mmol/L (96-108); Creatinine Clr Calc Pharmacy 96.8; Estimated Glomerular Filt Rate > 60; Glucose Random 88 mg/dL (60-115); Lipase 29 U/L (8-78); Magnesium 1.9 mg/dL (1.6-2.6); Potassium 3.8 mmol/L (3.3-5.1); Sodium 135 mmol/L (135-145); Total Protein 7.1 g/dL (6.5-8.0)
[2023-12-08 11:03] LABS: B Type Natriuretic Peptide < 10 pg/mL (<100)
[2023-12-08 11:09] LABS: Troponin-I High Sensitivity < 2.7 ng/L (<3.5-17.0)
[2023-12-08] MEDS: Lidocaine 4 % Patch ADH..PATCH 1 PATCH TRANSDERMA (11:24)
[2023-12-08 11:56] LABS: SLIDE REVIEW VERIFIED
[2023-12-08 12:31] VITALS: BP 99/50; PULSE 88; RESP 20; TEMP 37.4; O2SAT 96
== END 2023-12-08 12:47 | disposition home or self-care (01) ==
PROVIDERS: Emergency Provider Emergency Medicine
DX: R07.89 Other chest pain (principal); M94.0 Chondrocostal junction syndrome [Tietze]; R06.02 Shortness of breath
CPT/HCPCS: 36415; 71045; 80048; 80076; 83690; 83735; 83880; 84484; 85025; 85379; 93005; 96374; 99284; J2060

== ENCOUNTER → 2023-12-08 10:09 | Outpatient (BNV) | payer MEDICAID, SELFPAY | PROVIDERS: Emergency Provider Emergency Medicine; Visit Provider Internal Medicine Cardiovascular Disease | DX: R00.0 Tachycardia, unspecified (principal) | CPT/HCPCS: 93010 ==

== ENCOUNTER 2024-01-04 08:01 | Emergency (ER) | payer MEDICAID, SELFPAY ==
--- NOTE | ~2024-01-04 | CT_ITS ---
EXAMINATION: CT HEAD WITHOUT CONTRAST CLINICAL INFORMATION: Mechanical fall, recent skull fracture. Blunt head trauma without loss of consciousness, significant head injury and posttraumatic headache. COMPARISON: CT scan of brain on 11/26/2006 TECHNIQUE: Contiguous axial imaging was performed from the skull base to vertex without intravenous administration of contrast. This CT examination was performed using dose optimization techniques as appropriate, variously including the following: *Automated exposure control *Adjustment of mA and/or kV according to patient size (this includes techniques or standardized protocols for targeted exams where dose is matched to indication/reason for exam; i.e. extremities or head) *Use of iterative reconstruction technique DLP: 596.8 mGy-cm FINDINGS: Ventricles, sulci and cisterns are normal. Persistent chronic left anterior frontal cerebral infarction with cystic encephalomalacia is seen. There is no midline shift, no abnormal intra- or extra- axial fluid accumulation. [place] and white matter differentiation is normal. Bone window images show no evidence of skull fracture. Mild mucosal thickening is seen in posterior wall of right sphenoid sinus. CT/CT head/brain wo IV con IMPRESSION: 1. Unchanged chronic left anterior frontal cerebral infarction with cystic encephalomalacia. 2. No intracranial hemorrhage or skull fracture is seen. 3. No evidence of space occupying lesion could be found. 4. The current plain CT scan of the brain shows no diagnostic evidence of acute cerebral infarction.
--- NOTE | ~2024-01-04 | XR_ITS ---
EXAMINATION: XR CHEST CLINICAL INFORMATION: Shortness of breath COMPARISON: 12/08/2023 TECHNIQUE: 2 views of the chest were obtained. FINDINGS: vascularity. LUNGS: Lungs are clear. No pneumothorax is seen. BONES: Bony skeleton is intact. Unchanged cervical and upper thoracic spinal fusion, posterior fixation with transpedicular screws and vertical bars is seen. XR/XR chest 2V IMPRESSION: Unchanged Normal chest x-ray.
--- NOTE | ~2024-01-04 | CT_ITS ---
EXAMINATION: CT FACIAL BONES WITHOUT CONTRAST CLINICAL INFORMATION: Mechanical fall, facial injury and pain COMPARISON: None available. TECHNIQUE: Multiple 3.0 and 1.5 mm axial images of the facial bones were obtained without IV contrast enhancement. Bone window and soft tissue window images were reconstructed. Coronal and sagittal images of facial bones were reconstructed from axial image data. This CT examination was performed using dose optimization techniques as appropriate, variously including the following: *Automated exposure control *Adjustment of mA and/or kV according to patient size (this includes techniques or standardized protocols for targeted exams where dose is matched to indication/reason for exam; i.e. extremities or head) *Use of iterative reconstruction technique DLP: 330.0 mGy-cm EXAMINATION: CT facial bones. INDICATION: Significant facial trauma and pain.. TECHNIQUE: Dose reduction technique: One or more of the following individual dose optimization techniques were used including: Automated exposure control, mA and/or kV were adjusted according to patient size or iterative reconstruction. DLP: 926.8 mGy-cm FINDINGS: The visualized facial bones including bilateral zygomatic arches, bony orbits, pterygoid plates, mandibular rami and body of mandible are intact. Nasal bones are intact. Nasal septum is midline. Prominent bony spur is seen pointing to the left. Mild mucosal thickening is seen at posterior wall of right sphenoid sinus. Bilateral ethmoid sinuses, maxillary sinuses and frontal sinuses are clear. Right Mayank's cell is present. C4-C5 ACDF, fixation with anterior metallic plate and cortical screws is partially visualized. CT/CT facial bones wo IV con IMPRESSION: 1. No evidence of acute facial bone fracture. 2. Mild right sphenoid sinus disease. 3. C4-C5 ACDF, fixation is partially visualized.
[2024-01-04 08:07] VITALS: BP 124/96; PULSE 80; RESP 18; TEMP 36.6; O2SAT 97; BMI 30.6
--- NOTE | 2024-01-04 08:28 | ED_ITS ---
HPI - General Adult General Chief complaint: Head Injury Stated complaint: fall head inj Time Seen by Provider: 01/04/24 08:06 Source: patient and family Mode of arrival: wheelchair Limitations: no limitations History of Present Illness ED Provider: Nolan Ro PA-C HPI narrative: 48-year-old female with history of bipolar disorder, occipital neuralgia, migraine headaches, anxiety, cervical post laminectomy syndrome with chronic neck pain (7 prior surgeries), former intravenous drug user who presents to the ER with her daughter from home for evaluation disorientation noted this morning. Patient reportedly fell out of bed 2 weeks ago after mixing her Ambien and Xanax. She reports the fall resulted in a skull fracture. She states yesterday morning when she went to ?run up the stairs at home? patient slipped when her knee gave out, falling up the stairs, hitting her face and head again. She was able to make the top of the stairs and went into her room where she ?almost passed out on the bed.? She was very short of breath. She gave herself a breathing treatment. Patient was on the way to the hospital today for a cardiac echo when patient's daughter noticed she became acutely disoriented with reports of dizziness, nausea, headaches, fatigue. She reported back pain from her fall onto the bed yesterday. Patient was well enough to drive herself to the hospital today in his acute disorientation started on arrival to the hospital. complaint: All-over body pain, headache, disorientation Onset (ago): minute(s) Location: head Severity: severe Quality: aching Pain Consistency: constant Relieving factors: none Exacerbating factors: none Associated symptoms: confusion, headaches, loss of appetite and weakness Treatments prior to arrival: none Related Data Home Medications ?Medication ?Instructions ?Recorded ?Confirmed ondansetron 4 mg disintegrating 4 mg PO Q8H PRN Nausea 03/05/22 10/13/23 tablet propranolol 20 mg tablet 20 mg PO BID 03/05/22 10/13/23 dicyclomine 20 mg tablet 20 mg PO QID PRN cramps 06/06/22 10/13/23 linaclotide 290 mcg capsule 290 mcg PO DAILY 06/06/22 10/13/23 (Linzess) omeprazole 40 mg capsule,delayed 40 mg PO DAILY 06/06/22 10/13/23 release albuterol 90 mcg/actuation aerosol 90 mcg inhalation Q4H PRN 06/09/22 10/13/23 inhaler Shortness Of Breath methylphenidate HCl 10 mg tablet 20 mg PO BID 12/03/22 10/13/23 quetiapine 300 mg tablet,extended 400 mg PO QPM 12/03/22 10/13/23 release 24 hr alprazolam 1 mg tablet 1 mg PO TID PRN severe pain 06/03/23 10/13/23 gabapentin 400 mg capsule 400 mg PO TID 06/03/23 10/13/23 Xanax 0.05 mg PO PRN Panic Attack(S) 09/18/23 10/13/23 Previous Rx's ?Medication ?Instructions ?Recorded clonidine HCl 0.1 mg tablet 0.1 mg PO Q12H PRN withdrawal 09/18/23 symptoms 30 days #60 tabs Allergies Allergy/AdvReac Type Severity Reaction Status Date / Time amoxicillin [Amoxicillin] Allergy Severe Anaphylaxis Verified 01/04/24 08:10 bee pollen [BEE STINGS] Allergy Severe SWELLING Verified 01/04/24 08:10 erythromycin base Allergy Mild HIVES Verified 01/04/24 08:10 [From E.E.S. 200] ketorolac [From Toradol] Allergy Mild HIVES Verified 01/04/24 08:10 Penicillins Allergy Mild HIVES Verified 01/04/24 08:10 ibuprofen [IBUPROFEN] Allergy Unknown STOMACH Verified 01/04/24 08:10 UPSET-N/V acetaminophen [ACETAMINOPHEN] AdvReac Unknown STOMACH Verified 01/04/24 08:10 UPSET-N/V Review of Systems 2 Review of Systems: Yes all other systems are reviewed and are negative [facility] Past Medical History Medical History CVA (cerebral vascular accident) Post-laminectomy syndrome Migraines Bipolar disorder Surgical History H/O total hysterectomy History of arthroscopic knee surgery History of tubal ligation Hx of neck surgery History of lumpectomy of left breast Family History Family History Mother Breast CA Thyroid cancer Ovarian cancer Uterine cancer CHF (congestive heart failure) Paternal Grandmother Lung cancer Paternal Uncle Colon cancer Social History Social History Household Members: Spouse Housing: House Alcohol intake: current Alcohol intake frequency: does not drink Patient Tobacco Use Status: Current everyday Tobacco user Tobacco use type: Cigarette Cigarettes Per Day: 10 Years Smoked: 40 Smoked in Last 30 Days: Yes Second Hand Smoke Exposure: No Use of substances other than those prescribed or required for medical reasons: Yes Substance Use Type: Marijuana Substance Use Frequency: Occasionally Last Used Substance: Days (ago) Advance Directives: No Advance Directives Information Provided: No Current occupational status: disabled Sexual orientation: Straight/Heterosexual Gender identity: Female Physical Exam ED Vital Signs: Vital Signs - 24 hr 01/04/24 08:07 01/04/24 12:25 Temperature 97.9 F 97.9 F Pulse Rate 80 72 Respiratory Rate 18 14 Blood Pressure 124/96 H 114/83 Pulse Oximetry 97 99 Oxygen Delivery Method Room Air Room Air BMI result Body Mass Index 30.6 Appearance: Lethargic sitting in the wheelchair, slumped over to the left, answering questions oriented X3. No acute distress. Head: normocephalic, atraumatic. Eyes: Pupils equal, round and reactive to light. ENT: No dentition Pharynx normal. No tonsillar swelling or exudate. Neck: Normal inspection. Neck supple. CVS: Normal heart rate and rhythm. Pulses normal. Respiratory: No respiratory distress. Breath sounds normal. Abdomen: Soft and nontender. +BS x4 Skin: Skin warm and dry. Normal skin color. Normal skin turgor. No rashes. Extremities: No lower extremity edema. No joint swelling. Neuro/psych: Oriented X 3. Strength is equal and symmetrical throughout, no sensory deficits, CN II-XII intact. Normal speech and cognition. Lethargic but able to answer questions appropriately Course Reevaluation(s) Reevaluation #1: Patient given dose of IV Benadryl and Reglan along with p.o. tramadol with significant improvement in her symptoms. She would like to go home. She feels much better. Comfortable discharge home. Was spent unremarkable Time: 14:50 Medications Administered Discontinued Medications Generic Name Dose Route Start Last Admin Trade Name Freq PRN Reason Stop Dose Admin Diphenhydramine HCl 50 mg 01/04/24 12:58 01/04/24 14:03 Diphenhydramine Hcl 50 Mg/Ml Vial IVPUSH 01/04/24 12:59 50 mg ONCE ONE Administration Metoclopramide HCl 10 mg 01/04/24 12:58 01/04/24 14:06 Metoclopramide Hcl 10 Mg/2 Ml Vial IVPUSH 01/04/24 12:59 10 mg ONCE ONE Administration Tramadol HCl 50 mg 01/04/24 14:15 01/04/24 14:22 Tramadol Hcl 50 Mg Tablet PO 01/04/24 14:16 50 mg ONCE ONE Administration Medical Decision Making Medical Decision Making [facility] Narrative: 48-year-old female with history of bipolar disorder, occipital neuralgia, migraine headaches, anxiety, cervical post laminectomy syndrome with chronic neck pain (7 prior surgeries), former intravenous drug user who presents to the ER with her daughter from home for evaluation disorientation noted this morning. Patient initially evaluated in the triage room. She was in a wheelchair and her daughter helps provide history. She reported acute onset of confusion, headache, body pain. On initial evaluation patient was lethargic but oriented and nonfocal neurologically. She reported falling up the stairs yesterday, hitting her head and face. CT scan of the head and face were performed which showed evidence of old stroke but no acute injuries. Her metabolic workup was ordered and unremarkable. Patient brought back to the ER for further evaluation and treatment. Upon reassessment patient was much more appropriate. When she was informed of her normal/reassuring results she was more responsive. She asked for medications for headache, has a history of migraines. Patient was given IV Reglan, Benadryl, dose of Toradol with significant improvement. She is awake, alert, nonfocal and asking to go home. She states she is hungry and wants to go home to eat. She was unable to provide a urine sample. She denies any urinary symptoms. Low suspicion for UTI. Given her psychiatric history this was most likely a manifestation of her known bipolar, possible exacerbation of her occipital neuralgia were in atypical migraine. She is stable for discharge home Differential Diagnosis Differential Diagnoses: The differential diagnosis associated with the presentation includes Acute encephalopathy, toxic encephalopathy, polypharmacy, head trauma, delirium, UTI Admission/Observation Consideration of admission/observation: Escalation of care including admission/observation considered Lab Data [facility] Lab Attestation statement: I reviewed the patient's lab results. Mild leukocytosis 12.4, improved from prior 01/04/24 09:08 01/04/24 09:08 Labs: Lab Results 01/04/24 01/04/24 Range/Units 09:08 09:11 WBC 12.4 H (4.8-10.8) X10*3/uL RBC 4.10 L (4.20-5.50) X10*6/uL Hgb 14.1 (12.0-16.0) g/dl Hct 40.2 (37.0-47.0) % MCV 98.0 (80.0-98.0) fL MCH 34.4 H (27.0-33.0) pg MCHC 35.1 H (31.0-35.0) g/dl RDW 13.4 (11.0-16.0) % Plt Count 285 (160-400) X10*3/uL MPV 9.8 (9.4-12.3) fL Immature Gran % (Auto) 0.6 H (0.0-0.4) % Neut % (Auto) 62.5 (45-73) % Lymph % (Auto) 27.3 (20-40) % Cache % (Auto) 6.3 (2-11) % Eos % (Auto) 2.5 (0-4) % Baso % (Auto) 0.8 (0-2) % Lymph # (Auto) 3.4 (1.2-4.9) X10*3/uL Cache # (Auto) 0.8 (0.1-1.2) X10*3/uL Eos # (Auto) 0.3 (0.0-0.4) X10*3/uL Baso # (Auto) 0.1 (0.0-0.2) X10*3/uL Abs Immat Gran (auto) 0.07 H (0.00-0.03) X10*3/uL Absolute Neuts (auto) 7.7 (2.0-8.3) x10*3/uL Absolute Nucleated RBC 0.000 (0.0-0.012) X10*3/uL Nucleated RBC % (auto) 0.0 (0.0-0.2) /100WBC VBG pH 7.41 (7.32-7.43) VBG pCO2 31 mmHg VBG pO2 134 mmHg VBG HCO3 20 L (22-26) mmol/L VBG O2 Saturation 100.0 % VBG Base Excess -3.3 mmol/L Sodium 141 (135-145) mmol/L Potassium 4.1 (3.3-5.1) mmol/L Chloride 111 H (96-108) mmol/L Carbon Dioxide 21 L (22-29) mmol/L Anion Gap 13 (12-20) BUN 6 L (9-16) mg/dL Creatinine 0.77 (0.5-1.4) mg/dL Estim Creat Clear Calc 83.6 Estimated GFR > 60 Random Glucose 96 (60-115) mg/dL Calcium 9.6 (8.4-10.2) mg/dL Magnesium 2.1 (1.6-2.6) mg/dL Total Bilirubin 0.1 (0.0-1.0) mg/dL Direct Bilirubin < 0.2 (0.0-0.5) mg/dL AST 13 (5-31) U/L ALT 14 (0-31) U/L Alkaline Phosphatase 89 (39-117) U/L Total Protein 7.2 (6.5-8.0) g/dL Albumin 4.1 (3.5-5.0) g/dL TSH 1.44 (0.32-4.0) uIU/mL Ethyl Alcohol < 10 mg/dL Influenza Type A (PCR) NEGATIVE (Negative) Influenza Type B (PCR) NEGATIVE (Negative) RSV RNA Qual (PCR) NEGATIVE (Negative) SARS-CoV-2 RNA (RT-PCR) NEGATIVE (Negative) ABG Data ABG Results: Attestation ABG: I personally reviewed and interpreted this ABG as follows: Interpretation: No metabolic or respiratory acid base disorder Independent Interpretation I performed an independent interpretation of an: Plain X-Ray and CT Scan Interpretation: Chest x-ray without focal infiltrate or effusion CT head without acute intracranial bleed or edema, agree with radiology read Radiology Impression Discussion of test interpretation with radiology: I have reviewed the radiologist's reading. Radiologist Impression: CT/CT head/brain wo IV con IMPRESSION: 1. Unchanged chronic left anterior frontal cerebral infarction with cystic encephalomalacia. 2. No intracranial hemorrhage or skull fracture is seen. 3. No evidence of space occupying lesion could be found. 4. The current plain CT scan of the brain shows no diagnostic evidence of acute cerebral infarction. CT/CT facial bones wo IV con IMPRESSION: 1. No evidence of acute facial bone fracture. 2. Mild right sphenoid sinus disease. 3. C4-C5 ACDF, fixation is partially visualized. CLINICAL INFORMATION: Shortness of breath COMPARISON: 12/08/2023 TECHNIQUE: 2 views of the chest were obtained. FINDINGS: vascularity. LUNGS: Lungs are clear. No pneumothorax is seen. BONES: Bony skeleton is intact. Unchanged cervical and upper thoracic spinal fusion, posterior fixation with transpedicular screws and vertical bars is seen. XR/XR chest 2V IMPRESSION: Unchanged Normal chest x-ray. Independent Historian Clinical information obtained from an independent historian. History obtained from or confirmed by: Other (Adult daughter) External Record Review External record reviewed: Outpatient record, Prior outpatient labs and Prior outpatient radiology Prescription Management I considered prescription management with: Pain Medication Chronic Conditions Patient?s care impacted by: Other (Bipolar disorder, migraine headache, chronic pain) Social Determinants Patient?s care significantly limited by Social Determinants of Health including: Other Social Determinant of Health Discharge Plan Discharge Clinical Impression: Headache Qualifiers: Headache type: unspecified Headache chronicity pattern: unspecified pattern I ntractability: not intractable Qualified Code(s): R51.9 - Headache, unspecified Patient Disposition: Home, Self-Care Instructions: Acute Headache (DC) Additional Instructions: your CT scans did not show any traumatic injuries your lab workup was unremarkable Follow-up with your doctor for further evaluation and treatment of your headaches. Prescriptions: No Action Xanax 0.05 mg PO PRN (Reason: Panic Attack(S)) clonidine HCl 0.1 mg tablet 0.1 mg PO Q12H PRN (Reason: withdrawal symptoms) 30 Days Qty: 60 0RF Rx Instructions: Please take clonidine only if heart rate above 100 and blood pressure above 169/99 MM Hg. ondansetron 4 mg tablet,disintegrating 4 mg PO Q8H PRN (Reason: Nausea) propranolol 20 mg tablet 20 mg PO BID methylphenidate HCl 10 mg tablet 20 mg PO BID dicyclomine 20 mg tablet 20 mg PO QID PRN (Reason: cramps) omeprazole 40 mg capsule,delayed release(DR/EC) 40 mg PO DAILY Linzess 290 mcg capsule 290 mcg PO DAILY albuterol 90 mcg/actuation aerosol 90 mcg inhalation Q4H PRN (Reason: Shortness Of Breath) quetiapine 300 mg tablet extended release 24 hr 400 mg PO QPM alprazolam 1 mg tablet 1 mg PO TID PRN (Reason: severe pain) gabapentin 400 mg capsule 400 mg PO TID Print Language: [place]
[2024-01-04 09:14] LABS: MANUAL DIFF FLAG NO
[2024-01-04 09:17] LABS: Basophils Absolute Auto 0.1 X10*3/uL (0.0-0.2); Basophils Percent Auto 0.8 % (0-2); Eosinophils Absolute Auto 0.3 X10*3/uL (0.0-0.4); Eosinophils Percent Auto 2.5 % (0-4); Hematocrit 40.2 % (37.0-47.0); Hemoglobin 14.1 g/dl (12.0-16.0); Imm Gran Abs Auto 0.07 X10*3/uL (0.00-0.03); Imm Gran Pct Auto 0.6 % (0.0-0.4); Lymphocytes Absolute Auto 3.4 X10*3/uL (1.2-4.9); Lymphocytes Percent Auto 27.3 % (20-40); Mean Corpuscular HGB Conc 35.1 g/dl (31.0-35.0); Mean Corpuscular Hemoglobin 34.4 pg (27.0-33.0); Mean Platelet Volume 9.8 fL (9.4-12.3); Monocytes Absolute Auto 0.8 X10*3/uL (0.1-1.2); Monocytes Percent Auto 6.3 % (2-11); Neutrophils Absolute Auto 7.7 x10*3/uL (2.0-8.3); Neutrophils Percent Auto 62.5 % (45-73); Platelet Count 285 X10*3/uL (160-400); Red Cell Distribution Width 13.4 % (11.0-16.0); White Blood Count 12.4 X10*3/uL (4.8-10.8)
[2024-01-04 09:19] LABS: VBG Base Excess -3.3 mmol/L; VBG HCO3 20 mmol/L (22-26); VBG pCO2 31 mmHg; VBG pH 7.41 (7.32-7.43); VBG pO2 134 mmHg
[2024-01-04 09:20] LABS: Venous Blood Gas Refer to POC result
[2024-01-04 09:43] LABS: Alanine Aminotransferase 14 U/L (0-31); Albumin Level 4.1 g/dL (3.5-5.0); Alkaline Phosphatase 89 U/L (39-117); Anion Gap 13 (12-20); Aspartate Amino Transferase 13 U/L (5-31); Bilirubin Direct < 0.2 mg/dL (0.0-0.5); Bilirubin Total 0.1 mg/dL (0.0-1.0); Blood Urea Nitrogen 6 mg/dL (9-16); Calcium 9.6 mg/dL (8.4-10.2); Carbon Dioxide 21 mmol/L (22-29); Chloride 111 mmol/L (96-108); Creatinine Clr Calc Pharmacy 83.6; Estimated Glomerular Filt Rate > 60; Ethanol < 10 mg/dL; Glucose Random 96 mg/dL (60-115); Magnesium 2.1 mg/dL (1.6-2.6); Potassium 4.1 mmol/L (3.3-5.1); Sodium 141 mmol/L (135-145); Total Protein 7.2 g/dL (6.5-8.0)
[2024-01-04 09:50] LABS: TSH reflex Free T4 1.44 uIU/mL (0.32-4.0)
[2024-01-04 09:53] LABS: Influenza A PCR NEGATIVE (Negative); Influenza B PCR NEGATIVE (Negative); Resp Syncy Virus RNA Qual PCR NEGATIVE (Negative); SARS COV2 PCR INHOUSE NEGATIVE (Negative)
[2024-01-04 12:25] VITALS: BP 114/83; PULSE 72; RESP 14; TEMP 36.6; O2SAT 99
[2024-01-04] MEDS: diphenhydrAMINE HCL 50 MG/ML VIAL IVPUSH (14:03)
[2024-01-04] MEDS: Metoclopramide HCl 10 MG/2 ML VIAL IVPUSH (14:06)
[2024-01-04] MEDS: traMADoL HCL 50 MG TABLET PO (14:22)
[2024-01-04 15:19] VITALS: BP 97/80; PULSE 74; RESP 18; TEMP 36.9; O2SAT 99
[2024-01-04 15:24] LABS: Appearance Urine Cloudy; Color Urine Yellow; Glucose Urine UA Negative (Negative); Leukocyte Esterase Urine Trace (Negative); Nitrite Urine Positive (Negative); PH 5.5 (5.0-9.0); UMIC TRIGGER UACC YES; Urine Blood Small (1+) (Negative); Urine Ketones Trace mg/dL (Negative); Urine Protein Negative (Neg-Trace)
[2024-01-04 15:26] VITALS: BP 97/80; PULSE 74; RESP 18; TEMP 36.9; O2SAT 99
[2024-01-04 15:34] LABS: Amphetamine Screen Urine Not Detected (Not Detect); Barbiturates, Urine Not Detected (Not Detect); Benzodiazepines Screen Urine POSITIVE (Not Detect); Buprenorphine Scr Not Detected (Not Detect); Cannabinoid Screen Urine POSITIVE (Not Detect); Cocaine Screen Urine POSITIVE (Not Detect); Fentanyl, urine Not Detected (Not Detect); Methadone Screen, Urine Not Detected (Not Detect); Opiate Screen Urine Not Detected (Not Detect); Oxycodone Screen Urine Not Detected (Not Detect); Phencyclidine Screen Urine Not Detected (Not Detect)
[2024-01-04 15:39] LABS: Bacteria Urine 4+ (None Seen); Hyaline Casts Urine 0-2 /LPF (0-2); RBC Urine 0-2 /HPF (0-2); UACC Culture Trigger YES
== END 2024-01-04 15:45 | disposition home or self-care (01) ==
PROVIDERS: Physician Assistant; Emergency Provider Emergency Medicine; PCP Internal Medicine
DX: R51.9 Headache, unspecified (principal); R06.02 Shortness of breath; F17.210 Nicotine dependence, cigarettes, uncomplicated; M54.81 Occipital neuralgia; F31.70 Bipolar disorder, currently in remission, most recent episode unspecified; Z96.89 Presence of other specified functional implants; Z86.73 Personal history of transient ischemic attack (TIA), and cerebral infarction without residual deficits; Z79.899 Other long term (current) drug therapy; Z03.818 Encounter for observation for suspected exposure to other biological agents ruled out
CPT/HCPCS: 0241U; 70450; 70486; 71046; 80048; 80076; 80307; 81001; 82803; 83735; 84443; 85025; 87086; 87088; 87186; 96374; 96375; 99284; J1200; J2765

== ENCOUNTER 2024-01-08 17:38 | Outpatient (REF) | payer MEDICAID, SELFPAY | END 2024-01-08 17:39 | disposition home or self-care (01) | LOC: HO.HHCLNP 17:38 | PROVIDERS: Visit Provider Internal Medicine | DX: N39.0 Urinary tract infection, site not specified (principal); R31.9 Hematuria, unspecified | CPT/HCPCS: 87086; 87088; 87186 ==

== ENCOUNTER → 2024-02-12 08:08 | Outpatient (REF) | payer MEDICAID, SELFPAY ==
--- NOTE | ~2024-02-12 | NM_ITS ---
Lexiscan Myocardial perfusion study Indication: Chest pain, coronary artery disease Technique: The patient was brought in for a Lexiscan perfusion study on 02/12/2024 and was injected 0.4 mg of Lexiscan intravenously. Within a minute of this injection 25 mCi of sestamibi was given intravenously. Images were obtained using the SPECT gamma camera interlaced with the gating device. Images were obtained in supine position. Resting perfusion study was performed on 02/24/2024. Patient was administered 25 mCi of sestamibi intravenously at rest. Images were then obtained in supine position. Images were processed with the software and compared side to side in short axis, horizontal long axis and vertical long axis views. Total DLP 90mGy-cm. Findings: Raw acquisition reviewed. The stress perfusion study showed no significant perfusion abnormality. Both uncorrected as well as CT attenuation corrected images were reviewed. The gated study shows normal LV systolic function with calculated LVEF of 61%. LV cavity is normal in size. The gated study shows normal wall thickening and contraction of segments. Resting study shows no significant perfusion abnormality. Gating at rest reveals normal wall motion with visually normal ejection fraction. The findings are consistent with no clear reversible or fixed perfusion defects. NM/NM cardiolite stress test Impression: 1. Myocardial perfusion imaging study shows normal myocardial perfusion. 2. Gated LVEF is during stress. 3. Transient ischemic dilatation not present. EKG component of the test reported separately.
--- NOTE | 2024-02-12 08:12 | CA_ITS ---
Acquisition Time: 2024-02-12 08:21:17 Total Exercise Time: 00:01:47 Test Indications: CP Medications: SEE H Protocol: SÁNCHEZ Max HR: 121 BPM 69% of Pred: 174 BPM Max BP: 128/078 mmHG Max Work Load: 4.1 METS Exercise stress test exercise 1 min 47 sec of Sánchez protocol achieving 69% MPHR with need to stop due to safety / dizziness / vision blurry, with baseline 2/10 chest tighness increased 7-8/10, with mild to moderate SOB, without arrhythmias, with normotensive response to exercise, with downsloping in leads 3, aVF . Test changed to pharmacological stress test once breathing and chest pain returned to baseline. Pharmacological stress test with Lexiscan injection while sitting and kicking her legs, with 3-410 chest pain, mild SOB, with isolated PVCs, with normotenisve response to injection,w ith nondiagnostic EKGs. Chest pain retsolved. Aminophylline 75mg IVP given to reverse Lexiscan. Nuclear images pending. Test reviewed with Dr. Menjivar Referred By: Naveen Izaguirre Overread By: Velia Morataya
== END ==
LOC: HO.CARD 08:08
PROVIDERS: PCP Internal Medicine; Visit Provider Internal Medicine
DX: R07.2 Precordial pain (principal)
CPT/HCPCS: 78452; 93017; A9500; J0280; J2785

== ENCOUNTER → 2024-02-12 08:12 | Outpatient (BNV) | payer MEDICAID, SELFPAY | PROVIDERS: PCP Internal Medicine; Visit Provider Nurse Practitioner | DX: R07.9 Chest pain, unspecified (principal) | CPT/HCPCS: 78452; 93016; 93018 ==

== ENCOUNTER 2024-02-15 09:46 | Emergency (ER) | payer MEDICAID, SELFPAY ==
--- NOTE | ~2024-02-15 | XR_ITS ---
EXAMINATION: XR CHEST CLINICAL INFORMATION: Shortness of breath COMPARISON: 01/04/2024 TECHNIQUE: Frontal view of the chest was obtained. FINDINGS: The lungs are markedly hypoinflated compared to prior. Cervical spine ACDF hardware is noted along with posterior lateral mass screws. Allowing for the hypoinflation, no significant abnormality is noted involving the heart, lungs, mediastinum or soft tissues. No gross consolidation is seen. No pleural effusions. There is a mild scoliosis convex to the right again noted. XR/XR chest 1V IMPRESSION: Hypoinflated lungs with no acute intrathoracic disease.
--- NOTE | ~2024-02-15 | CT_ITS ---
EXAMINATION: CT HEAD WITHOUT CONTRAST CLINICAL INFORMATION: Weakness. Abnormal speech. COMPARISON: Head CT dated 01/04/2024. TECHNIQUE: Contiguous axial imaging was performed from the skullbase to vertex without intravenous administration of contrast. This CT examination was performed using dose optimization techniques as appropriate, variously including the following: *Automated exposure control *Adjustment of mA and/or kV according to patient size (this includes techniques or standardized protocols for targeted exams where dose is matched to indication/reason for exam; i.e. extremities or head) *Use of iterative reconstruction technique DLP: 564 mGy-cm. FINDINGS: There is no evidence of acute intracranial hemorrhage or territorial infarction. No abnormal mass effect or midline shift is seen. Encephalomalacia again visible in the anterior left frontal lobe. No extra-axial fluid collections are identified. The ventricles are normal in size. There is no abnormal attenuation within the brain parenchyma. The osseous structures and soft tissues are normal. The mastoid air cells are well aerated. Small fluid level in the right sphenoid sinus. CT/CT head/brain wo IV con IMPRESSION: Stable left frontal lobe encephalomalacia. Otherwise, no acute territorial infarction or intracranial hemorrhage. Nonspecific small fluid level in the right sphenoid sinus.
[2024-02-15 09:53] VITALS: BP 104/62; PULSE 77; RESP 16; TEMP 36.9; O2SAT 99; BMI 28.3
--- NOTE | 2024-02-15 10:00 | ECG_ITS ---
Test Reason : STROKE SYMPTOMS Blood Pressure : / mmHG Vent. Rate : 073 BPM Atrial Rate : 073 BPM P-R Int : 146 ms QRS Dur : 096 ms QT Int : 344 ms P-R-T Axes : 048 098 038 degrees QTc Int : 378 ms Normal sinus rhythm Rightward axis Borderline ECG When compared with ECG of 08-DEC-2023 10:12, No significant change was found Referred By: Generic ED Physician Electronically Signed By:MEGA SOTO
[2024-02-15 10:29] LABS: Basophils Absolute Auto 0.1 X10*3/uL (0.0-0.2); Basophils Percent Auto 0.3 % (0-2); Eosinophils Absolute Auto 0.2 X10*3/uL (0.0-0.4); Eosinophils Percent Auto 0.9 % (0-4); Hematocrit 34.5 % (37.0-47.0); Hemoglobin 11.9 g/dl (12.0-16.0); Imm Gran Abs Auto 0.16 X10*3/uL (0.00-0.03); Imm Gran Pct Auto 0.7 % (0.0-0.4); Lymphocytes Percent Auto 8.4 % (20-40); MANUAL DIFF FLAG SCAN; Mean Corpuscular HGB Conc 34.5 g/dl (31.0-35.0); Mean Corpuscular Hemoglobin 34.3 pg (27.0-33.0); Mean Corpuscular Volume 99.4 fL (80.0-98.0); Mean Platelet Volume 10.1 fL (9.4-12.3); Monocytes Absolute Auto 2.9 X10*3/uL (0.1-1.2); Monocytes Percent Auto 12.4 % (2-11); Neutrophils Absolute Auto 18.3 x10*3/uL (2.0-8.3); Neutrophils Percent Auto 77.3 % (45-73); Platelet Count 245 X10*3/uL (160-400); Red Blood Count 3.47 X10*6/uL (4.20-5.50); Red Cell Distribution Width 13.2 % (11.0-16.0); SCAN SMEAR FLAG 1; White Blood Count 23.7 X10*3/uL (4.8-10.8)
[2024-02-15 10:35] LABS: Alanine Aminotransferase 21 U/L (0-31); Albumin Level 3.9 g/dL (3.5-5.0); Alkaline Phosphatase 94 U/L (39-117); Anion Gap 14 (12-20); Aspartate Amino Transferase 23 U/L (5-31); Bilirubin Total 0.3 mg/dL (0.0-1.0); Blood Urea Nitrogen 12 mg/dL (9-16); Calcium 9.3 mg/dL (8.4-10.2); Carbon Dioxide 23 mmol/L (22-29); Chloride 97 mmol/L (96-108); Creatinine Clr Calc Pharmacy 44.5; Estimated Glomerular Filt Rate 41; Glucose Random 102 mg/dL (60-115); Sodium 130 mmol/L (135-145); Total Protein 7.2 g/dL (6.5-8.0)
[2024-02-15 11:09] LABS: SLIDE REVIEW VERIFIED
[2024-02-15 12:00] VITALS: BP 95/62; PULSE 80; RESP 14; TEMP 38.6; O2SAT 96
--- NOTE | 2024-02-15 12:02 | ED.GENADULT ---
HPI - General Adult General Chief complaint: Altered Mental Status Stated complaint: quest of stroke disorented numbness lips Time Seen by Provider: 02/15/24 11:47 Source: patient Mode of arrival: ambulatory Limitations: no limitations History of Present Illness ED Provider: Dr. Peacock HPI narrative: Patient with fever and confusion on and off for the past 3 days. States that she has had UTI's like this in the past. Patient states this all happened after her nuclear stress test last week Onset (ago): day(s) Related Data Home Medications ?Medication ?Instructions ?Recorded ?Confirmed ondansetron 4 mg disintegrating 4 mg PO Q8H PRN Nausea 03/05/22 10/13/23 tablet propranolol 20 mg tablet 20 mg PO BID 03/05/22 10/13/23 dicyclomine 20 mg tablet 20 mg PO QID PRN cramps 06/06/22 10/13/23 linaclotide 290 mcg capsule 290 mcg PO DAILY 06/06/22 10/13/23 (Linzess) omeprazole 40 mg capsule,delayed 40 mg PO DAILY 06/06/22 10/13/23 release albuterol 90 mcg/actuation aerosol 90 mcg inhalation Q4H PRN 06/09/22 10/13/23 inhaler Shortness Of Breath methylphenidate HCl 10 mg tablet 20 mg PO BID 12/03/22 10/13/23 quetiapine 300 mg tablet,extended 400 mg PO QPM 12/03/22 10/13/23 release 24 hr alprazolam 1 mg tablet 1 mg PO TID PRN severe pain 06/03/23 10/13/23 gabapentin 400 mg capsule 400 mg PO TID 06/03/23 10/13/23 Xanax 0.05 mg PO PRN Panic Attack(S) 09/18/23 10/13/23 Previous Rx's ?Medication ?Instructions ?Recorded clonidine HCl 0.1 mg tablet 0.1 mg PO Q12H PRN withdrawal 09/18/23 symptoms 30 days #60 tabs levofloxacin 500 mg tablet 500 mg PO DAILY 7 days #7 tabs 02/15/24 Allergies Allergy/AdvReac Type Severity Reaction Status Date / Time amoxicillin [Amoxicillin] Allergy Severe Anaphylaxis Verified 02/15/24 09:53 bee pollen [BEE STINGS] Allergy Severe SWELLING Verified 02/15/24 09:53 erythromycin base Allergy Mild HIVES Verified 02/15/24 09:53 [From E.E.S. 200] ketorolac [From Toradol] Allergy Mild HIVES Verified 02/15/24 09:53 Penicillins Allergy Mild HIVES Verified 02/15/24 09:53 ibuprofen [IBUPROFEN] Allergy Unknown STOMACH Verified 02/15/24 09:53 UPSET-N/V acetaminophen [ACETAMINOPHEN] AdvReac Unknown STOMACH Verified 02/15/24 09:53 UPSET-N/V Review of Systems Review of Systems: Yes all other systems are reviewed and are negative Neurologic: Denies Sensory deficit (Neuro) [facility] Past Medical History Medical History CVA (cerebral vascular accident) Post-laminectomy syndrome Migraines Bipolar disorder Surgical History H/O total hysterectomy History of arthroscopic knee surgery History of tubal ligation Hx of neck surgery History of lumpectomy of left breast Family History Family History Mother Breast CA Thyroid cancer Ovarian cancer Uterine cancer CHF (congestive heart failure) Paternal Grandmother Lung cancer Paternal Uncle Colon cancer Social History Social History Household Members: Spouse Housing: House Alcohol intake: current Alcohol intake frequency: does not drink Patient Tobacco Use Status: Current everyday Tobacco user Tobacco use type: Cigarette Cigarettes Per Day: 10 Years Smoked: 40 Second Hand Smoke Exposure: No Substance Use Type: Marijuana Advance Directives: No Do you have a plan to hurt others: No Plan Current occupational status: disabled Sexual orientation: Straight/Heterosexual Gender identity: Female Physical Exam ED Vital Signs: Vital Signs - 24 hr 02/15/24 09:53 02/15/24 12:00 02/15/24 14:00 Temperature 98.5 F 101.4 F H 102.6 F H Pulse Rate 77 80 90 Respiratory Rate 16 14 Blood Pressure 104/62 95/62 103/63 Pulse Oximetry 99 96 98 Oxygen Delivery Method Room Air Room Air Nasal Cannula Oxygen Flow Rate 2 02/15/24 16:00 Temperature 97.6 F Pulse Rate 135 H Respiratory Rate 20 Blood Pressure 122/76 Pulse Oximetry 97 Oxygen Delivery Method Room Air Oxygen Flow Rate 3 BMI result Body Mass Index 28.3 Const Other: female looking older than stated age Nutritional Appearance: average body habitus Orientation/consciousness: oriented to person and patient oriented x3 Limitations: no limitations HENMT Head: Yes normal to inspection Ears: external ears normal General nose exam: Normal external nose present Mouth: Normal oral and palatal mucosa present and oropharynx normal Throat: Yes posterior oropharynx normal Eyes General: appearance normal, both eyes and all related structures Neck Neck: Yes normal visual inspection Chest Chest palpation & inspection: normal inspection of the chest Resp Auscultation: clear to auscultation bilaterally Cardio Jugular venous distension: no JVD Rate: regular rate Rhythm: regular rhythm Heart sounds: S1 normal heart sound present and S2 normal heart sound present GI Inspection: Yes normal to inspection Palpation (GI): Soft to palpation, nontender and No hepatosplenomegaly present Auscultation: normal bowel sounds General: Yes no CVA tenderness Back/Spine/Pelvis Back: no CVA tenderness Skin General skin exam: no rashes or lesions noted Neuro General: oriented to person and patient oriented x3 Cranial nerves: Yes CN's II-XII intact bilaterally Motor exam (neuro): 5/5 motor strength present throughout Sensory Exam: No Sensory deficit (Neuro) Extrem General: Yes normal to inspection Psych Appearance: grossly normal Course Reevaluation(s) Reevaluation #1: Patient with fever secondary to UTI, now improved fever down tolerating po, will start levaquin Time: 16:27 Medications Administered Discontinued Medications Generic Name Dose Route Start Last Admin Trade Name Freq PRN Reason Stop Dose Admin Acetaminophen 975 mg 02/15/24 14:51 02/15/24 15:23 Acetaminophen 325 Mg Tablet PO 02/15/24 14:52 975 mg ONCE ONE Administration Ceftriaxone Sodium 1 gm/ 50 mls @ 100 mls/hr 02/15/24 12:56 02/15/24 14:45 Sodium Chloride IV 02/15/24 13:25 Infused ONCE ONE Infusion Sodium Chloride 1,000 mls @ 999 mls/hr 02/15/24 13:30 02/15/24 15:23 Ns IVCONT 02/15/24 15:30 999 mls/hr .Q1H1M DESTINEY Administration Ibuprofen 600 mg 02/15/24 12:57 02/15/24 14:22 Ibuprofen 600 Mg Tablet PO 02/15/24 12:58 600 mg ONCE ONE Administration Medical Decision Making Differential Diagnosis Differential Diagnoses: The differential diagnosis associated with the presentation includes (pneumonia, fever, confusion, UTI, electrolyte abnormality) Admission/Observation Consideration of admission/observation: Escalation of care including admission/observation considered (upon arrival patient was considered for admission) Lab Data 02/15/24 10:15 02/15/24 10:15 Labs: Lab Results 02/15/24 02/15/24 Range/Units 10:15 12:37 WBC 23.7 H (4.8-10.8) X10*3/uL RBC 3.47 L (4.20-5.50) X10*6/uL Hgb 11.9 L (12.0-16.0) g/dl Hct 34.5 L (37.0-47.0) % MCV 99.4 H (80.0-98.0) fL MCH 34.3 H (27.0-33.0) pg MCHC 34.5 (31.0-35.0) g/dl RDW 13.2 (11.0-16.0) % Plt Count 245 (160-400) X10*3/uL MPV 10.1 (9.4-12.3) fL Immature Gran % (Auto) 0.7 H (0.0-0.4) % Neut % (Auto) 77.3 H (45-73) % Lymph % (Auto) 8.4 L (20-40) % Sully % (Auto) 12.4 H (2-11) % Eos % (Auto) 0.9 (0-4) % Baso % (Auto) 0.3 (0-2) % Lymph # (Auto) 2.0 (1.2-4.9) X10*3/uL Sully # (Auto) 2.9 H (0.1-1.2) X10*3/uL Eos # (Auto) 0.2 (0.0-0.4) X10*3/uL Baso # (Auto) 0.1 (0.0-0.2) X10*3/uL Abs Immat Gran (auto) 0.16 H (0.00-0.03) X10*3/uL Absolute Neuts (auto) 18.3 H (2.0-8.3) x10*3/uL Absolute Nucleated RBC 0.000 (0.0-0.012) X10*3/uL Nucleated RBC % (auto) 0.0 (0.0-0.2) /100WBC Smear Tech's Comments VERIFIED Sodium 130 L (135-145) mmol/L Potassium 4.0 (3.3-5.1) mmol/L Chloride 97 (96-108) mmol/L Carbon Dioxide 23 (22-29) mmol/L Anion Gap 14 (12-20) BUN 12 (9-16) mg/dL Creatinine 1.39 (0.5-1.4) mg/dL Estim Creat Clear Calc 44.5 Estimated GFR 41 Random Glucose 102 (60-115) mg/dL Calcium 9.3 (8.4-10.2) mg/dL Total Bilirubin 0.3 (0.0-1.0) mg/dL AST 23 (5-31) U/L ALT 21 (0-31) U/L Alkaline Phosphatase 94 (39-117) U/L Total Protein 7.2 (6.5-8.0) g/dL Albumin 3.9 (3.5-5.0) g/dL Urine Color Dark Yellow Urine Appearance Cloudy Urine pH 5.5 (5.0-9.0) Ur Specific Pitman 1.020 (1.005-1.025) Urine Protein 30 (1+) H (Neg-Trace) mg/dL Urine Glucose (UA) Negative (Negative) mg/dL Urine Ketones Trace (Negative) mg/dL Urine Blood Moderate (2+) H (Negative) Urine Nitrite Positive H (Negative) Ur Leukocyte Esterase Moderate (2+) H (Negative) Urine RBC 6-10 H (0-2) /HPF Urine WBC >50 H (0-5) /HPF Ur Squamous Epith Cells >20 (0-2) /HPF Urine Bacteria 4+ (None Seen) Hyaline Casts 3-5 (0-2) /LPF Influenza Type A (PCR) NEGATIVE (Negative) Influenza Type B (PCR) NEGATIVE (Negative) RSV RNA Qual (PCR) NEGATIVE (Negative) SARS-CoV-2 RNA (RT-PCR) NEGATIVE (Negative) Independent Interpretation I performed an independent interpretation of an: EKG (sinus [address] or twave changes), Plain X-Ray (no infiltrate) and CT Scan (brain no bleed or infarction) Radiology Impression Discussion of test interpretation with radiology: I have reviewed the radiologist's reading. Chronic Conditions Patient?s care impacted by: Hypertension Social Determinants Patient?s care significantly limited by Social Determinants of Health including: Low income Discharge Plan Discharge Clinical Impression: Urinary tract infection, Fever Patient Disposition: Home, Self-Care Instructions: Fever in Adults (ED), Urinary Tract Infection in Older Adults (ED) Prescriptions: New levofloxacin 500 mg tablet 500 mg PO DAILY 7 Days Qty: 7 0RF No Action Xanax 0.05 mg PO PRN (Reason: Panic Attack(S)) clonidine HCl 0.1 mg tablet 0.1 mg PO Q12H PRN (Reason: withdrawal symptoms) 30 Days Qty: 60 0RF Rx Instructions: Please take clonidine only if heart rate above 100 and blood pressure above 169/99 MM Hg. ondansetron 4 mg tablet,disintegrating 4 mg PO Q8H PRN (Reason: Nausea) propranolol 20 mg tablet 20 mg PO BID methylphenidate HCl 10 mg tablet 20 mg PO BID dicyclomine 20 mg tablet 20 mg PO QID PRN (Reason: cramps) omeprazole 40 mg capsule,delayed release(DR/EC) 40 mg PO DAILY Linzess 290 mcg capsule 290 mcg PO DAILY albuterol 90 mcg/actuation aerosol 90 mcg inhalation Q4H PRN (Reason: Shortness Of Breath) quetiapine 300 mg tablet extended release 24 hr 400 mg PO QPM alprazolam 1 mg tablet 1 mg PO TID PRN (Reason: severe pain) gabapentin 400 mg capsule 400 mg PO TID Print Language: [place]
[2024-02-15 12:44] LABS: Appearance Urine Cloudy; Color Urine Dark Yellow; Glucose Urine UA Negative (Negative); Leukocyte Esterase Urine Moderate (2+) (Negative); Nitrite Urine Positive (Negative); PH 5.5 (5.0-9.0); UMIC TRIGGER UACC YES; Urine Blood Moderate (2+) (Negative); Urine Ketones Trace mg/dL (Negative); Urine Protein 30 (1+) mg/dL (Neg-Trace)
[2024-02-15 12:55] LABS: Bacteria Urine 4+ (None Seen); Squamous Epithelial Cell Urine >20 /HPF (0-2); UACC Culture Trigger YES; WBC Urine >50 /HPF (0-5)
[2024-02-15 13:31] LABS: Influenza A PCR NEGATIVE (Negative); Influenza B PCR NEGATIVE (Negative); Resp Syncy Virus RNA Qual PCR NEGATIVE (Negative); SARS COV2 PCR INHOUSE NEGATIVE (Negative)
[2024-02-15 14:00] VITALS: BP 103/63; PULSE 90; TEMP 39.2; O2SAT 98
[2024-02-15] MEDS: cefTRIAXone sodium 1 GM in 0.9 % Sodium Chloride 50 ML IV (14:22)
[2024-02-15] MEDS: Ibuprofen 600 MG TABLET PO (14:22)
[2024-02-15] MEDS: 0.9 % Sodium Chloride 1,000 ML 999 ML IVCONT ×2 (14:23→15:23)
[2024-02-15] MEDS: Acetaminophen 325 MG TABLET 975 MG PO (15:23)
[2024-02-15 16:00] VITALS: BP 122/76; PULSE 135; RESP 20; TEMP 36.4; O2SAT 97
[2024-02-15 17:01] VITALS: BP 97/49; PULSE 81; RESP 19; TEMP 37.3; O2SAT 96
== END 2024-02-15 17:04 | disposition home or self-care (01) ==
PROVIDERS: Emergency Provider Emergency Medicine; PCP Internal Medicine
DX: N39.0 Urinary tract infection, site not specified (principal); R41.82 Altered mental status, unspecified; R50.9 Fever, unspecified; R11.2 Nausea with vomiting, unspecified; R94.31 Abnormal electrocardiogram [ECG] [EKG]; F17.210 Nicotine dependence, cigarettes, uncomplicated; Z87.440 Personal history of urinary (tract) infections; Z79.899 Other long term (current) drug therapy; Z03.818 Encounter for observation for suspected exposure to other biological agents ruled out
CPT/HCPCS: 0241U; 36415; 70450; 71045; 80053; 81001; 85025; 87040; 87086; 87088; 87186; 93005; 96361; 96374; 99284; J0696

== ENCOUNTER → 2024-02-15 10:00 | Outpatient (BNV) | payer MEDICAID, SELFPAY | PROVIDERS: Emergency Provider Emergency Medicine; PCP Internal Medicine; Visit Provider Internal Medicine | DX: R41.0 Disorientation, unspecified (principal); R50.9 Fever, unspecified | CPT/HCPCS: 93010 ==